=== PATIENT | female | born 1945 | race Caucasian/White ===

== ENCOUNTER 2020-07-08 10:33 | Emergency (ER) | payer MEDICARE, SELFPAY ==
--- NOTE | 2020-07-08 10:41 | ED.GENADULT ---
HPI - General Adult General Chief complaint: Eye Problems Stated complaint: Eye Pain Time Seen by Provider: 07/08/20 10:54 Source: patient Mode of arrival: ambulatory Limitations: no limitations History of Present Illness HPI narrative: 75-year-old female patient presents to the [facility] with complaints of a little bit of redness and itchiness to the right side of her nose that she first noticed last night woke up with increasing swelling and redness as well as increasing itching this morning. Denies any vision changes or swelling of the eye. Denies any discharge coming from the eye. Patient unsure if she was stung or bit by something. Patient denies putting any creams or taking any antihistamines for her symptoms. Related Data Home Medications Medication Instructions Recorded Confirmed aspirin 81 mg tablet,delayed 81 mg PO DAILY 10/03/19 07/08/20 release Allergies Allergy/AdvReac Type Severity Reaction Status Date / Time erythromycin base Allergy Unknown Nausea Verified 07/08/20 10:45 imipramine Allergy Unknown Nausea Verified 07/08/20 10:45 Penicillins Allergy Unknown Unknown Verified 07/08/20 10:45 pneumococcal vaccine Allergy Unknown Nausea and Verified 07/08/20 10:45 [Pneumovax 23] Vomiting Review of Systems Review of Systems: Narrative: CONSTITUTIONAL: Denies fever, chills, or sweats. EYES: Denies visual changes, redness, or discharge. ENT: Denies rhinorrhea, congestion, sore throat, or otalgia. CARDIOVASCULAR: Denies chest pain, palpitations, or edema. RESPIRATORY: Denies cough or dyspnea. GASTROINTESTINAL: Denies abdominal pain, nausea, vomiting, or diarrhea. GENITOURINARY: Denies dysuria or hematuria. SKIN: Denies rash or itching. Positive redness, itchiness to the right lateral side of the nose MUSCULOSKELETAL: Denies back pain, joint pain, or myalgia. NEUROLOGIC: Denies headache, numbness, or weakness. PSYCHIATRIC: Denies anxiety or depression. [facility] Past Medical History Medical History Arthritis right knee Cyclothymia Dupuytren's disease of palm H/O gastroesophageal reflux (GERD) History of hyperlipidemia History of hypertension History of rheumatic fever History of stroke History of valvular heart disease Multinodular goiter Peroneal nerve palsy Type 2 diabetes mellitus Vertigo Surgical History Surgical History History of bladder surgery History of hysterectomy Family History Family History Father Family history of lung cancer Other Family history of cardiovascular disease Hypertension Social History Social History Smoking status: Never smoker Alcohol intake: never Comments At the time of my signature I agree with nursing past medical history, surgical, social, and family history. There is no relevant family history pertinent to the presenting complaint. Exam Narrative: Exam Narrative: GENERAL: Well-appearing, well-nourished, and in no acute distress. HEAD: Normocephalic, atraumatic. EYES: PERRLA and EOMI. ENT: Nares clear, no rhinorrhea or epistaxis. Mucous membranes moist. NECK: Supple. No lymphadenopathy CHEST: Clear to auscultation. No respiratory distress. HEART: Regular rate and rhythm. No murmur heard. Normal peripheral pulses. ABDOMEN: Soft, nontender, nondistended, normal active bowel sounds. EXTREMITIES: Normal range of motion. No edema. SKIN: Warm, dry, no rash. Patient has a little reddened area with a little bit of hardness, slight tenderness, no warmth and a little bit of swelling to the lateral side of the right nose. There does to be seem to be a little sting liliana noted to the center of the area. There is no significant swelling under the eye or above the eye. There is no significant swelling to the cheek or face. No open wounds o
[2020-07-08 10:49] VITALS: BP 153/86; PULSE 64; RESP 18; TEMP 36.6; O2SAT 98
== END 2020-07-08 11:10 | disposition home or self-care (01) ==
PROVIDERS: Emergency Provider Nurse Practitioner Family; PCP Family Medicine
DX: S00.36XA Insect bite (nonvenomous) of nose, initial encounter (principal); W57.XXXA Bitten or stung by nonvenomous insect and other nonvenomous arthropods, initial encounter; L24.9 Irritant contact dermatitis, unspecified cause; M17.11 Unilateral primary osteoarthritis, right knee; F34.0 Cyclothymic disorder; M72.0 Palmar fascial fibromatosis [Dupuytren]; E78.5 Hyperlipidemia, unspecified; I10 Essential (primary) hypertension; Z86.73 Personal history of transient ischemic attack (TIA), and cerebral infarction without residual deficits; E11.9 Type 2 diabetes mellitus without complications; E04.2 Nontoxic multinodular goiter
CPT/HCPCS: 99213; G0463

== ENCOUNTER 2020-09-27 01:42 | Outpatient (CLI) | payer MEDICARE, SELFPAY ==
[2020-09-27 22:26] LABS: SARS-CoV-2 RNA PCR Negative
== END 2020-09-27 01:43 | disposition home or self-care (01) ==
LOC: ANHCOVIDDT 01:42
PROVIDERS: PCP Family Medicine; Visit Provider Internal Medicine Gastroenterology
DX: Z01.812 Encounter for preprocedural laboratory examination (principal); Z20.828 Contact with and (suspected) exposure to other viral communicable diseases
CPT/HCPCS: 87635; C9803; U0003

== ENCOUNTER 2020-10-01 00:45 | Day surgery (SDC) | payer MEDICARE, SELFPAY ==
[2020-09-24 14:54] VITALS: BMI 32.3
[2020-10-01 08:29] VITALS: BP 162/96; PULSE 88; RESP 17; TEMP 36.6; O2SAT 96; BMI 33.0
[2020-10-01] MEDS: LACTATED RINGERS 1,000 ML 150 ML IV CONT (08:39)
[2020-10-01 08:45] LABS: Glucose Point of Care 101 (65-105)
--- NOTE | 2020-10-01 08:52 | WPDGICN ---
Assessment and Plan Assessment and plan (1) Positive colorectal cancer screening using Cologuard test: Code(s): R19.5 - Other fecal abnormalities Status: Acute Assessment and Plan: Patient had positive screening: coloGuard test for this reason colonoscopy will be performed. (2) Family history of colonic polyps: Code(s): Z83.71 - Family history of colonic polyps Status: Acute Assessment and Plan: Patient's mother had colon polyps. Suggest consider follow-up colonoscopy at 5 year intervals. GI Consult Note Consult date/time: 10/01/20 08:52 HPI: Mari Leone is a 75 year old female Seen in evaluation at the request of Dr. Da Kolb. Patient recently found to have positive screening colo-Guard test in is referred for endoscopy. Patient denies any blood in her stools. Her current weight appetite bowel movements are normal. Her family history is significant that her mother had colon polyps. Review of Systems Review of Systems: All systems reviewed & are unremarkable except as noted in HPI and below PMFSH Past Medical History Medical History (Updated 10/01/20 @ 08:54 by Dhiraj Shukla MD) Arthritis right knee Cyclothymia Dupuytren's disease of palm H/O gastroesophageal reflux (GERD) History of blood transfusion (~1996) History of chicken pox History of hyperlipidemia History of hypertension History of measles History of mumps History of rheumatic fever History of rubella History of stroke History of valvular heart disease Multinodular goiter Peroneal nerve palsy Type 2 diabetes mellitus Vertigo Surgical History Surgical History History of bladder surgery (~1951) History of hysterectomy (~1996) Family History Family History Father Lung cancer Mother Congestive heart failure Daughter Age: 48 No problems noted. Sibling No chronic problems Grandparent , in childbirth No chronic problems Grandparent Myocardial infarction Grandparent No chronic problems Grandparent , at 96 No chronic problems Other Family history of cardiovascular disease Hypertension Social History Social History Alcohol intake: never Substance use type: does not use Living arrangements: with family Gender identity (if verbalized by the patient): Female Sexual Orientation (if Verbalized by the Patient): Straight or Heterosexual Spiritual care concerns: No Meds Home Medications and Allergies Home Medications Medication Instructions Recorded Confirmed Type aspirin 81 mg tablet,delayed 81 mg PO DAILY 10/03/19 10/01/20 History release atorvastatin 10 mg tablet 10 mg PO DAILY #90 tablet 01/10/20 10/01/20 Rx metoprolol tartrate 50 mg tablet 50 mg PO Q12H #180 tablet 03/03/20 10/01/20 Rx lisinopril 2.5 mg tablet 2.5 mg PO DAILY #90 tablet 04/15/20 10/01/20 Rx omeprazole 20 mg capsule,delayed 20 mg PO DAILY #90 cap 04/15/20 10/01/20 Rx release metformin 500 mg tablet,extended 500 mg PO DAILY #90 tablet 06/06/20 10/01/20 Rx release 24 hr mupirocin 2 % topical ointment 1 applic TOPICAL TID #22 gm 08/19/20 10/01/20 Rx Allergies Allergy/AdvReac Type Severity Reaction Status Date / Time erythromycin base Allergy Mild Nausea Verified 10/01/20 08:27 imipramine Allergy Mild Nausea Verified 10/01/20 08:27 Penicillins Allergy Mild Unknown Verified 10/01/20 08:27 pneumococcal vaccine Allergy Mild Nausea and Verified 10/01/20 08:27 [Pneumovax 23] Vomiting Vital Signs Vital Signs - 24 hr 10/01/20 08:29 Temperature 97.8 F Pulse Rate 88 Respiratory Rate 17 Blood Pressure 162/96 H Pulse Oximetry 96 Exam Narrative: Exam Narrative: Physical exam reveals patient to be alert. Vital signs stable. H
--- NOTE | 2020-10-01 09:10 | WPDANESEPPF ---
Anes - Initial Pre Proc Eval Procedure: Operation Date: 10/01/20 09:30 Proposed Procedures p Colonoscopy - Dhiraj Shukla MD Date/Time: 10/01/20 09:10 Surgeon: Dhiraj Shukla MD Pre Op Diagnosis: Positive [place] Patient Data Age: 75 Gender: F Height: 5 ft 5 in Weight: 90 kg Last Vital Signs Temp 36.6 C 10/01/20 08:29 Pulse 88 10/01/20 08:29 Resp 17 10/01/20 08:29 BP 162/96 H 10/01/20 08:29 Pulse Ox 96 10/01/20 08:29 Allergies Allergy/AdvReac Type Severity Reaction Status Date / Time erythromycin base Allergy Mild Nausea Verified 10/01/20 08:27 imipramine Allergy Mild Nausea Verified 10/01/20 08:27 Penicillins Allergy Mild Unknown Verified 10/01/20 08:27 pneumococcal vaccine Allergy Mild Nausea and Verified 10/01/20 08:27 [Pneumovax 23] Vomiting Home Medications Medication Instructions Recorded Confirmed Type aspirin 81 mg tablet,delayed 81 mg PO DAILY 10/03/19 10/01/20 History release atorvastatin 10 mg tablet 10 mg PO DAILY #90 tablet 01/10/20 10/01/20 Rx metoprolol tartrate 50 mg tablet 50 mg PO Q12H #180 tablet 03/03/20 10/01/20 Rx lisinopril 2.5 mg tablet 2.5 mg PO DAILY #90 tablet 04/15/20 10/01/20 Rx omeprazole 20 mg capsule,delayed 20 mg PO DAILY #90 cap 04/15/20 10/01/20 Rx release metformin 500 mg tablet,extended 500 mg PO DAILY #90 tablet 06/06/20 10/01/20 Rx release 24 hr mupirocin 2 % topical ointment 1 applic TOPICAL TID #22 gm 08/19/20 10/01/20 Rx Laboratory Tests 10/01/20 08:41 POC Capillary Glucose 101 mg/dl mg/dl (65-105) Patient hx anesthesia problems: none Family hx anesthesia problems: none PMFSH Past Medical History Medical History Arthritis right knee Cyclothymia Dupuytren's disease of palm H/O gastroesophageal reflux (GERD) History of blood transfusion (~1996) History of chicken pox History of hyperlipidemia History of hypertension History of measles History of mumps History of rheumatic fever History of rubella History of stroke History of valvular heart disease Multinodular goiter Peroneal nerve palsy Type 2 diabetes mellitus Vertigo Surgical History Surgical History History of bladder surgery (~1951) History of hysterectomy (~1996) Family History Family History Father Lung cancer Mother Congestive heart failure Daughter Age: 48 No problems noted. Sibling No chronic problems Grandparent , in childbirth No chronic problems Grandparent Myocardial infarction Grandparent No chronic problems Grandparent , at 96 No chronic problems Other Family history of cardiovascular disease Hypertension Social History Social History Alcohol intake: never Substance use type: does not use Living arrangements: with family Gender identity (if verbalized by the patient): Female Sexual Orientation (if Verbalized by the Patient): Straight or Heterosexual Spiritual care concerns: No Anes - Eval Final PreProcedure Day of Procedure 10/01/20 09:10 Patient weight: obese Heart: regular rate and rhythm Lungs: clear to auscultation Airway: Mallampati scale class II Neurological: other (alert) Last oral intake: >/= 8 hours ASA classification: III Emergent: no Anesthetic plan: proceed Anesthesia type and monitoring: general GIVS and standard monitoring Informed Consent: The patient's anesthetic plan and its attendant risks and benefits were discussed with the patient/family/POA. Questions were solicited and answers provided to the satisfaction of the patient/family/POA.
[2020-10-01 10:07] VITALS: BP 109/67; PULSE 78; RESP 15; O2SAT 93
[2020-10-01 10:17] VITALS: BP 129/73; PULSE 69; RESP 16; O2SAT 94
[2020-10-01 10:27] VITALS: BP 139/78; PULSE 67; RESP 17; O2SAT 96
== END 2020-10-01 10:37 | disposition home or self-care (01) ==
PROVIDERS: PCP Family Medicine; Visit Provider Internal Medicine Gastroenterology
PROC: 0DJD8ZZ Inspection of Lower Intestinal Tract, Via Natural or Artificial Opening Endoscopic (ICD-10-PCS; CPT 45378; principal; 2020-10-01 09:30)
DX: R19.5 Other fecal abnormalities (principal); K64.8 Other hemorrhoids; K57.30 Diverticulosis of large intestine without perforation or abscess without bleeding; Z83.71 Family history of colonic polyps; K21.9 Gastro-esophageal reflux disease without esophagitis; I10 Essential (primary) hypertension; I38 Endocarditis, valve unspecified; E04.2 Nontoxic multinodular goiter; E78.5 Hyperlipidemia, unspecified; E11.9 Type 2 diabetes mellitus without complications; R42 Dizziness and giddiness; M17.11 Unilateral primary osteoarthritis, right knee; M72.0 Palmar fascial fibromatosis [Dupuytren]; G57.30 Lesion of lateral popliteal nerve, unspecified lower limb; F34.0 Cyclothymic disorder; Z86.73 Personal history of transient ischemic attack (TIA), and cerebral infarction without residual deficits
CPT/HCPCS: 45378; J2001; J2704; J7120

== ENCOUNTER 2020-10-28 12:44 | Outpatient (NON) | payer MEDICARE, SELFPAY ==
[2020-10-28 23:32] LABS: SARS-CoV-2 RNA PCR Positive
== END 2020-10-28 12:45 ==
LOC: ANHCOVIDDT 12:46
PROVIDERS: PCP Family Medicine; Visit Provider Physician Assistant
DX: U07.1 COVID-19 (principal)
CPT/HCPCS: 87635; C9803; U0003

== ENCOUNTER 2021-01-30 10:45 | Outpatient (CLI) | payer MEDICARE, SELFPAY | END 2021-01-30 10:46 | disposition home or self-care (01) | LOC: ANHCOVIDVC 10:45 | PROVIDERS: PCP Family Medicine | DX: Z23 Encounter for immunization (principal) | CPT/HCPCS: 0001A; 91300 ==

== ENCOUNTER 2021-02-20 10:47 | Outpatient (CLI) | payer MEDICARE, SELFPAY | END 2021-02-20 10:48 | disposition home or self-care (01) | LOC: ANHCOVIDVC 10:47 | PROVIDERS: PCP Family Medicine | DX: Z23 Encounter for immunization (principal) | CPT/HCPCS: 0002A; 91300 ==

== ENCOUNTER 2021-04-21 09:30 | Outpatient (RCR) | payer MEDICARE, SELFPAY ==
--- NOTE | 2021-02-19 14:45 | PTOPEVAL ---
Thank you for referring Mari Leone to [facility].? The patient is scheduled to be seen for therapy? 1 x/week for 6 weeks. Please review, sign, date and return this plan of care ROBSON. I agree with and certify that the following plan of care is medically necessary. Referring Physician Date Attending Provider: Da Kolb MD Physical therapy evaluation Diagnosis back pain Onset Dec 2020 Additional Evaluation Detail She had COVID 11/09 She has also noted increased right knee pain over the past 6 months. She had a fall 11/14/20 when she missed the last step. She had therapy 1 yrs ago for her hip and leg. She stopped performing her HEP in Dec. Subjective Information She reports she has had back Query Text:As Reported By Patient/ pain on/off for years, but Family this time pain has not improved in the past 4 wks. She reports limitations with walking, lifting, household task, carrying heavier objects, negotiating steps. She is unsure if her problems are related to her back or knees. Denies radiating symptoms into right leg. Pain Assessment Self Report Pain Assessment Lower Back Reported Pain Level 5 Pain Description Aching,Sharp,Shooting,Stabbing Pain Radiation Right Leg Pain Frequency Continuous Lowest Pain Intensity 3 Greatest Pain Intensity 10 Pain Aggravating Factors Bending,Exercise/Activity, Lifting,Stair Climbing,Walking ,Weight Bearing/Standing Pain Behaviors None Pain Score Pain Score 5: Self Report Cervical and Lumbar ROM Lumbar Comments seated trunk flex: reaching ankle with noted tightness trunk rotation: 50% with pain on right side Lower Extremity Range of Motion General Lower Extremity Range of Motion Gross Lower Extremity Range of Motion right knee -5- 105 deg painful Comments Cervical and Lumbar Muscle Testing Lumbar Strength Upper Abdominal Strength 3-Fair- Upper Back Extension 3 Fair Lumbar Functional Strength Comments unable to maintain trunk in midline in seated or standing positi
--- NOTE | 2021-03-10 11:59 | PCPTNOTE ---
Patient called and canceled stating she was sick.
--- NOTE | 2021-03-24 16:21 | PTOPEVAL ---
Thank you for referring Mari Leone to [facility].? The patient is scheduled to be seen for therapy? 1 x/week for 4 weeks. Please review, sign, date and return this plan of care ROBSON. I agree with and certify that the following plan of care is medically necessary. Referring Physician Date Attending Provider: Da Kolb MD Physical therapy progress note Diagnosis back pain Onset Dec 2020 Additional Evaluation Detail She had COVID 11/09 She has also noted increased right knee pain over the past 6 months. She had a fall 11/14/20 when she missed the last step. She had therapy 1 yrs ago for her hip and leg. She stopped performing her HEP in Dec. Subjective Information She does feel like her back is Query Text:As Reported By Patient/ better, but not 100%. She Family continues to ups/downs with the exercises and tolerance with daily activities. She is performing HEP 5-7x/wk. She is able to get in/out of bed easier without increased pain or limitations. Her pain varies daily, but unsure of anything that really sets the pain off. She c/o right inner thigh muscle cramping. 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 She is able to carry light to medium heavy objects without limitations. She will have occasional limitation with negotiating steps. Pain Assessment Timing of Pain Assessment Timing of Pain Assessment Re-assessment Pain Scale Pain Scale Used Numeric (1 - 10) Self Report Pain Assessment Lower Back Reported Pain Level 0 Pain Description Sharp Pain Frequency Continuous Lowest Pain Intensity 0 Greatest Pain Intensity 7 Pain Aggravating Factors Bending,Lifting,Prolonged Position Pain Behaviors None Pain Score Pain Score 0: Self Report Cervical and Lumbar ROM Lumbar ROM Lumbar Flexion Active Ankle Query Text:Hands to:
--- NOTE | 2021-04-21 11:59 | PTOPEVAL ---
Thank you for referring Mari Leone to [facility].? Pt has reached maximal potential with skilled therapy services at this time. See summary below for detailed information on progress. Discharge skilled therapy services at this time. Please review, sign, date and return this Discharge summary ROBSON. I agree with and certify that the following plan of care is medically necessary. Referring Physician Date Attending Provider: Da Kolb MD Physical Therapy Discharge Note Diagnosis back pain Onset Dec 2020 Additional Evaluation Detail She had COVID 11/09 She has also noted increased right knee pain over the past 6 months. She had a fall 11/14/20 when she missed the last step. She had therapy 1 yrs ago for her hip and leg. She stopped performing her HEP in Dec. Subjective Information She is able to perform Query Text:As Reported By Patient/ activities better with Family improved pain. She knows her back will never feel perfect but is better. She has learned how to move better since she started therapy. She is able to get in/out of bed easier without increased pain or limitations. She verbalizes the importance of continuing with her HEP to maintain her level of function . Pain Assessment Lower Back Reported Pain Level 0 Pain Description Sharp Pain Frequency Chronic Lowest Pain Intensity 0 Greatest Pain Intensity 5 Pain Aggravating Factors Exercise/Activity Pain Behaviors None Lower Extremity Muscle Strength Testing Hip Strength Left Hip Flexion Strength 4+ Good + Hip Extension Strength 3 Fair Hip Abduction Strength 3 Fair Hip Adduction Strength 3- Fair - Right Hip Flexion Strength 4+ Good + Hip Extension Strength 3 Fair Hip Abduction Strength 3 Fair Hip Adduction Strength 3- Fair - Knee Strength Right Knee Flexion Strength 4+ Good + Knee Extension Strength 5 Normal Left Knee Flexion Strength 4+ Good + Knee Extension Strength 5 Normal Gait Assessment Gait Pattern Antalgic Gait,Trendelenburg Gait Gait Pattern Observed Decreased Stride Le
== END 2021-04-22 08:28 | disposition home or self-care (01) ==
LOC: ANHPT 09:30
PROVIDERS: PCP Family Medicine; Visit Provider Family Medicine
DX: M54.9 Dorsalgia, unspecified (principal)
CPT/HCPCS: 97110; 97162; 97530

== ENCOUNTER 2021-07-16 12:14 | Outpatient (CLI) | payer MEDICARE, SELFPAY ==
--- NOTE | ~2021-07-16 | XR_ITS ---
XR lumbar spine 2-3V DATE: 07/16/2021 12:59 INDICATION: Low back pain since December, radiating to right leg. No injury. TECHNIQUE: AP, lateral, coned lateral lumbosacral views COMPARISON: 10/06/2013 lumbar spine FINDINGS: Diffuse osteopenia. Prominent degenerative spurring and included T10-11 and T11-12. There is severe degenerative disc disease and associated minimal retrolisthesis at L2-3. Moderate degenerative disc disease at L3-4. Severe degenerative disc disease at L4-5. There is moderate degenerative change at the apophyseal joints in the lower lumbar and lumbosacral ar ea with associated chronic grade 1 anterolisthesis at L4-5. The sacroiliac joints are intact. IMPRESSION: Multilevel degenerative disc disease, especially at L2-3 and L4-5 Grade 1 anterolisthesis at L4-5 due to degenerative change at the apophyseal joints Diffuse osteopenia Reviewed, dictated and finalized at location A. IMPRESSION: Multilevel degenerative disc disease, especially at L2-3 and L4-5 Grade 1 anterolisthesis at L4-5 due to degenerative change at the apophyseal jevon ints Diffuse osteopenia
== END 2021-07-16 12:15 | disposition home or self-care (01) ==
LOC: ANHIMG 12:18
PROVIDERS: PCP Family Medicine; Visit Provider Physician Assistant Medical
DX: M47.816 Spondylosis without myelopathy or radiculopathy, lumbar region (principal)
CPT/HCPCS: 72100

== ENCOUNTER 2021-08-14 14:57 | Outpatient (CLI) | payer MEDICARE, SELFPAY ==
--- NOTE | ~2021-08-14 | DEXA_ITS ---
Bone Density Report Name: Mari Leone Age: 76 Sex: Female Ethnicity: White Date of : 1945 Indication: postmenopausal; height loss; hysterectomy; Referring Provider: Darwin Benson Study: Bone densitometry was performed. Exam Date: August 14, 2021 Accession number: [id number] Bone Density: Region BMD T-score Z-score Classification AP Spine (L1, L2) 1.236 2.3 4.6 Normal Femoral Neck (Left) 0.664 -1.7 0.4 Osteopenia Total Hip (Left) 0.960 0.1 1.9 Normal Total Hip Bilateral Avg 0.896 -0.4 1.4 Normal Femoral Neck (Right) 0.694 -1.4 0.6 Osteopenia Total Hip (Right) 0.831 -0.9 0.8 Normal World Health Organization criteria for BMD impression classify patients as: Normal (T-score at or above -1.0), Osteopenia (T-score between -1.0 and -2.5), or Osteoporosis (T-score at or below -2.5). 10-year Fracture Risk(1): Major Osteoporotic Fracture 11% Hip Fracture 2.1% Reported Risk Factors: [place] (), Neck BMD=0.664, BMI=33.3 (1) FRAX(R) Version 3.08. Fracture probability calculated for an untreated patient. Fracture probability may be lower if the patient has received treatment. Previous Exams: Region Exam Age BMD T-score BMD Change BMD Change Date g/cm2 vs Baseline vs Previous AP Spine(L1, L2) 08/14/2021 76 1.236 2.3 0.149(13.7%)# 0.092(8.1%)* 09/03/2017 72 1.143 1.5 0.056(5.2%)# -0.012(-1.0%)# 05/18/2010 65 1.156 1.6 0.068(6.3%)* 0.068(6.3%)* 06/26/2005 60 1.087 1.0 Total Hip(Left) 08/14/2021 76 0.960 0.1 -0.020(-2.1%)# -0.038(-3.8%)* 09/03/2017 72 0.998 0.5 0.018(1.8%)# 0.006(0.6%)# 05/18/2010 65 0.992 0.4 0.011(1.2%) 0.011(1.2%) 06/26/2005 60 0.980 0.3 Total Hip(Right) 08/14/2021 76 0.831 -0.9 -0.161(-16.2%) -0.074(-8.2%)* 09/03/2017 72 0.905 -0.3 -0.086(-8.7%)# -0.067(-6.9%)# 05/18/2010 65 0.972 0.2 -0.019(-1.9%) -0.019(-1.9%) 06/26/2005 60 0.991 0.4 *Denotes significance at 95% confidence level, LSC for AP Spine = 0.022 g/cm2, LSC for Total Hip = 0.027 g/cm2 Clinical Information Provided by Patient: Has the following medical conditions: Hysterectomy Patient maximum height was 66 Menopause Age: 41 No regular weight bearing exercise Drinks caffeinated beverages Onset of menses at age 12 Number of children 1 Impression: The patient has low bone mass, based on the Left Femoral Neck T-score. The patient has an estima
--- NOTE | ~2021-08-14 | MM_ITS ---
EXAMINATION: MM screening apolinar BI w jameel HISTORY: Screening mammogram TECHNIQUE: Craniocaudal and mediolateral oblique 3-D tomosynthesis images were obtained and synthetic 2-D images were generated. CAD analysis was submitted and interpreted. COMPARISON: 09/08/2017 diagnostic left mammogram and complete left breast ultrasound 09/03/2017, 04/17/2016 bilateral digital screening mammogram examinations BREAST PARENCHYMAL COMPOSITION: There are scattered areas of fibroglandular density. FINDINGS: Left breast: There are multiple scattered left breast asymmetries. Diagnostic left mammogram and left breast ultrasound examination are recommended. Right breast: There is no evidence of suspicious mass, calcification, or architectural distortion to suggest malignancy in the right breast. There has been no suspicious interval change on the right. IMPRESSION: 1. Left breast mammographic asymmetries 2. Diagnostic left mammogram and left breast ultrasound examination are recommended BI-RADS Category 0: Incomplete: Needs additional imaging evaluation. Reviewed, dictated and finalized at location A. IMPRESSION: 1. Left breast mammographic asymmetries 2. Diagnostic left mammogram and left breast ultrasound examination are recomme nded BI-RADS Category 0: Incomplete: Needs additional imaging evaluation.
== END 2021-08-14 14:58 | disposition home or self-care (01) ==
LOC: ANHIMG 14:58
PROVIDERS: PCP Family Medicine; Visit Provider Physician Assistant Medical
DX: Z12.31 Encounter for screening mammogram for malignant neoplasm of breast (principal); Z78.0 Asymptomatic menopausal state; M85.89 Other specified disorders of bone density and structure, multiple sites; R92.8 Other abnormal and inconclusive findings on diagnostic imaging of breast
CPT/HCPCS: 77063; 77067; 77080

== ENCOUNTER 2021-09-30 11:24 | Outpatient (CLI) | payer MEDICARE, SELFPAY ==
--- NOTE | ~2021-09-30 | MMUS_ITS ---
EXAMINATION: MM diagnostic apolinar LT w jameel, US breast LT complete HISTORY: Mammographic asymmetries of left breast on 08/14/2021 screening mammogram TECHNIQUE: Additional 3-D tomosynthesis images of the left breast were performed and synthetic 2-D im ages were generated. CAD analysis was submitted and interpreted. High resolution complete left breast ultrasound including all 4 quadrants and subareolar area was performed. COMPARISON: 08/14/2021 bile screening mammogram 09/08/2017 diagnostic left mammogram and complete left breast ultrasound 09/03/2017, 04/17/2016 bilateral screening mammogram examinations FINDINGS: MAMMOGRAPHIC FINDINGS: There is stable nodular appearing fibroglandular stroma since 04/09/2016. No suspicious mass, architec tural distortion, malignant calcification, skin thickening or retraction is evident. There are scatte red benign calcifications. ULTRASOUND: 1:00 near nipple: 2.5 x 4.7 mm sonolucency consistent with cyst 2:00 6 cm from nipple: Parallel circumscribed hypoechoic 3.2 x 5.5 x 4.3 mm lesion without shadowing. 2:00 4 cm from nipple: Approximately 4 x 6 mm sonolucency consistent with cyst 6:00 near nipple: 4.3 x 3.4 x 5.2 mm circumscribed hypoechoic lesion with central hyperechogenicity/f atty tissue. This is likely a lymph node. IMPRESSION: 1. Probably benign findings 2. 6 month diagnostic left mammogram and left breast ultrasound follow-up are recommended BI-RADS category 3, probably benign findings. Reviewed, dictated and finalized at location A. 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 Probably benign findings 2. 6 month diagnostic left mammogram and left breast ultrasound follow-up are r ecommended BI-RADS category 3, probably benign findings.
== END 2021-09-30 11:25 | disposition home or self-care (01) ==
LOC: ANHIMG 11:27
PROVIDERS: PCP Family Medicine; Visit Provider Family Medicine
DX: R92.8 Other abnormal and inconclusive findings on diagnostic imaging of breast (principal)
CPT/HCPCS: 76641; 77061; 77065; G0279

== ENCOUNTER 2022-04-21 10:52 | Observation (INO) | payer MEDICARE, SELFPAY ==
--- NOTE | ~2022-04-21 | MR_ITS ---
EXAMINATION: MR brain/brain stem wo/w con DATE: 04/22/2022 08:10 INDICATION: Vertigo. TECHNIQUE: Magnetic resonance imaging (MRI) of the brain and brainstem was performed without and with 16 mL MultiHance intravenous contrast. COMPARISON: Brain MRI 10/06/2013, head CT 04/21/2022 FINDINGS: There are scattered areas of nonspecific increased T2-weighted signal intensity in the cere bral white matter, which is within normal limits for the patient's age. There is no intracranial hemo rrhage, acute infarction, or abnormal intracranial mass lesion. The ventricles are normal in size. Th ere is a left mastoid effusion. There is a mucous retention cyst in right maxillary sinus. There are no pathologically enlarged lymph nodes. IMPRESSION: 1. Normal aging brain. 2. Left mastoid effusion. Reviewed, dictated and finalized at location A.
--- NOTE | ~2022-04-21 | XR_ITS ---
EXAMINATION: XR chest 1V portable DATE: 04/21/2022 11:37 INDICATION: Transient alteration of awareness. TECHNIQUE: A single frontal view of the chest was obtained. COMPARISON: None. FINDINGS: There is mild atelectasis in lingula. No pleural effusion or pneumothorax. Cardiomegaly is noted. IMPRESSION: 1. Mild atelectasis in lingula. 2. Cardiomegaly. Reviewed, dictated and finalized at location A.
--- NOTE | ~2022-04-21 | CT_ITS ---
EXAMINATION: CT brain wo con DATE: 04/21/2022 11:58 INDICATION: Dizziness TECHNIQUE: Computed tomography (CT) of the head was performed without intravenous contrast. The dose- length product was 756.67 mGy-cm. Automated exposure control and iterative reconstruction technique w ere employed. COMPARISON: CT dated 08/27/2019 FINDINGS: No acute intracranial hemorrhage, infarction, mass or mass effect. There are scattered mild periventricular and subcortical white matter changes, most likely related to small vessel ischemic d isease (microangiopathy). Chronic bilateral lacunar infarctions. No ventriculomegaly or midline shift . There is intracranial atherosclerosis. There is a mucous retention cyst of the right maxillary sinu s. There is a left mastoid effusion. IMPRESSION: 1. No acute intracranial abnormality. 2: Small chronic bilateral lacunar infarctions. 3: Chronic age-related findings. Reviewed, dictated and finalized at location A.
[2022-04-21 10:53] VITALS: BP 150/79; PULSE 65; RESP 17; TEMP 36.2; O2SAT 99
--- NOTE | 2022-04-21 10:57 | ECG_ITS ---
Measurements Intervals [place] Rate: 66 P: 36 ME: 170 QRS: 1 QRSD: 84 T: 8 QT: 389 QTc: 409 Interpretive Statements SINUS RHYTHM NONSPECIFIC T-WAVE ABNORMALITY INFERIOR LEADS BORDERLINE ECG COMPARED TO PRIOR ECG NO SIGNIFICANT CHANGE Electronically Signed On 04-21-2022 11:44:22 CDT by Yomi Bazan M.D.
--- NOTE | 2022-04-21 11:02 | ED.DIZZY ---
HPI - Dizziness General Chief Complaint: Dizziness Stated Complaint: Dizziness History of Present Illness HPI Narrative: Patient presents emergency department from home via EMS for dizziness. Patient states that dizziness began upon awaking this morning. States that it feels like the room is spinning. States that dizziness is improved when she closes her eyes and is worse with movement she denies any vision changes, chest pain, shortness of breath abdominal pain nausea vomiting numbness or tingling in extremities or any other symptoms. Patient states she has a history of vertigo and has meclizine at home she took a meclizine but did vomit shortly afterwards she was given Zofran by EMS Related Data Home Medications Medication Instructions Recorded Confirmed aspirin 81 mg tablet,delayed 81 mg PO DAILY 10/03/19 06/19/21 release (Adult Aspirin Regimen) Allergies Allergy/AdvReac Type Severity Reaction Status Date / Time erythromycin base Allergy Mild Nausea Verified 06/19/21 13:40 imipramine Allergy Mild Nausea Verified 06/19/21 13:40 Penicillins Allergy Mild Unknown Verified 06/19/21 13:40 pneumococcal vaccine Allergy Mild Nausea and Verified 06/19/21 13:40 [Pneumovax 23] Vomiting Review of Systems Review of Systems: Gen.: Denies fevers or chills Eyes: Denies eye pain or visual change ENT: Denies congestion Respiratory: Denies shortness of breath or cough CV: Denies chest pain or palpitations GI: Denies abdominal or diarrhea reports nausea vomiting Musculoskeletal: Denies back pain or muscle pain Neuro: See HPI Skin: Denies rash Except as documented, all other systems reviewed and negative [facility] Past Medical History Medical History Arthritis right knee Class 1 obesity Cyclothymia Dupuytren's disease of palm H/O gastroesophageal reflux (GERD) History of blood transfusion (~1996) History of chicken pox History of hyperlipidemia History of hypertension History of measles History of mumps History of rheumatic fever History of rubella History of stroke History of valvular heart disease Multinodular goiter Peroneal nerve palsy Type 2 diabetes mellitus Vertigo Surgical History Surgical History History of bladder surgery (~1951) History of hysterectomy (~1996) Family History Family History Father Lung cancer Mother Congestive heart failure Daughter Age: 50 No problems noted. Sibling No chronic problems Grandparent , in childbirth No chronic problems Grandparent Myocardial infarction Grandparent No chronic problems Grandparent , at 96 No chronic problems Other Family history of cardiovascular disease Hypertension Social History Social History Alcohol intake: never Substance use type: does not use Gender identity (if verbalized by the patient): Female Sexual Orientation (if Verbalized by the Patient): Straight or Heterosexual Spiritual care concerns: No Exam Narrative: APPEARANCE: No acute distress, nontoxic, resting in bed HEENT: Normocephalic, atraumatic, OMM, TMs clear bilaterally EYES: PERRL, EOMI RESPIRATORY: No respiratory distress, clear to auscultation bilaterally with no rhonchi wheezing or rales CARDIOVASCULAR: RRR s murmur ABDOMINAL: Soft, nontender, nondistended MUSCULOSKELETAL: Moves all extremities. No clubbing, cyanosis or edema. NEURO: A and O ?3, following commands, speech normal, no facial droop,muscle strength 5 out of 5 bilateral upper and lower extremities SKIN:: Warm, dry. Normal Color PSYCHIATRIC: Normal affect/mood Course Course Emergency Course: Patient had taken meclizine at home continues to have dizziness will give Valium Patient continues santana
[2022-04-21] MEDS: SODIUM CHLORIDE 0.9% IV 1,000 ML 999 ML IV CONT (11:15)
[2022-04-21 11:19] LABS: Basophils Absolute Auto 0.1 K/mm3 (0.0-0.1); Basophils Percent Auto 0.4 % (0.2-1.2); Hematocrit 42.7 % (37.0-47.0); Hemoglobin 13.4 g/dL (12.0-15.0); Immature Granulocyte Absolute 0.07 K/mm3 (0.00-0.031); Immature Granulocyte Percent A 0.5 % (0-0.5); Lymphocytes Absolute Auto 1.79 K/mm3 (0.9-3.2); Lymphocytes Percent Auto 12.8 % (18.3-44.2); Mean Corpuscular HGB Conc 31.4 g/dl (32-36); Mean Corpuscular Hemoglobin 28.7 pg (26-34); Mean Corpuscular Volume 91.4 fl (80-100); Mean Platelet Volume 11.6 fl (7.4-10.4); Monocytes Absolute Auto 0.6 K/mm3 (0.1-0.6); Monocytes Percent Auto 4.3 % (2.6-8.5); Neutrophils Absolute Auto 11.5 K/mm3 (1.3-6.7); Platelet Count Result 227 k/mm3 (150-375); Red Blood Count 4.67 M/mm3 (4.2-5.4); Red Cell Distribution Width 12.9 % (11.5-14.5)
[2022-04-21 11:29] LABS: Alanine Aminotransferase 19 U/L (6-35); Albumin Level 4.2 g/dL (3.5-5.1); Alkaline Phosphatase 133 U/L (38-126); Anion Gap 15 mmol/L (8-16); Aspartate Amino Transferase 24 U/L (14-36); Bilirubin,Total 0.5 mg/dL (0.2-1.3); Blood Urea Nitrogen 23 mg/dL (7-17); Calcium 9.6 mg/dL (8.4-10.2); Carbon Dioxide 21 mmol/L (22-30); Chloride 106 mmol/L (98-107); Estimated CRCL calculation 72 ml/min; Estimated Glomerular Filt Rate > 60; Glucose 134 mg/dL (65-110); Potassium 4.3 mmol/L (3.4-5.0); Sodium 142 mmol/L (137-145)
[2022-04-21 11:36] LABS: Prothrombin Time 12.6 Seconds (11.1-14.7)
[2022-04-21 11:37] LABS: Partial Thromboplastin Time 23.1 SECONDS (22.3-36.8)
--- NOTE | 2022-04-21 11:50 | PC.NURSE ---
patient refusing any interventions until i get liquid in my iv . satated that this rn was pissed off' while this rn ws attempting to explain that nursing staff works under md orders and md orders testing and medications but patient continued to accuse this rn of not wanting to care for her. Dr Craven to bedside at patients request.
--- NOTE | 2022-04-21 11:54 | PC.NURSE ---
patient calling out requests for comfort needs to this rn while providing care to patient in next bed. patient overheard patient tell family member that this rn is terrible because she feels her needs are not being addressed in a timely manner
[2022-04-21 12:48] LABS: Add Urine Microscopic? YES; Appearance Urine Clear (Clear); Bilirubin Urine Negative (Negative); Blood Urine Negative (Negative); Color Urine Yellow (Yellow); Glucose Urine UA Negative (Negative); Ketones Urine 1+ mg/dL (Negative); Leukocyte Esterase Ur Negative LEU/UL (Negative); Nitrate Urine Negative (Negative); Protein Urine Negative (Negative); Specific Grav Ur 1.025 (1.001-1.035); Urobilinogen Urine 0.2 mg/dL (<2.0); pH Urine 5.5 (5.0-9.0)
[2022-04-21 12:54] LABS: Bacteria Urine Trace /hpf; Mucus Urine Few /lpf; RBC Urine 0-2 /hpf (0-2); Squamous Epithelial Cell Urine Rare /hpf (Few)
[2022-04-21 12:59] VITALS: BP 154/69; PULSE 78; RESP 18; O2SAT 99
--- NOTE | 2022-04-21 13:07 | PC.NURSE ---
patient refused orthostatic vs stating she is too dizzy to move
[2022-04-21] MEDS: diazePAM (*CRX) 2 MG TABLET PO (13:14)
--- NOTE | 2022-04-21 17:30 | ADMGEN ---
This patient, Mari Leone, was admitted to Medical Room 247-. Patient/family oriented to hospital policies and general routines including ID bracelet, bed and alarms, visiting hours, pain management, procedures, bathroom and other care routines, personal items, smoking policy, room service/diet, and visiting hours. Information on how to activate the Rapid Response Team has been discussed. Patient/Family are encouraged to report perceived risks to care and to ask questions if they do not understand what they are told or what they should do.
[2022-04-21 18:10] VITALS: BP 136/53; PULSE 78; RESP 16; TEMP 36.6; O2SAT 99
[2022-04-21] MEDS: SODIUM CHLORIDE 0.9% IV 1,000 ML 80 ML IV CONT (19:17)
--- NOTE | 2022-04-21 19:50 | PM.IMHP ---
H&P: HPI History of Present Illness Date/Time: 04/21/22 19:51 Chief Complaint: Vertigo Narrative: this is a 77-year-old female with past medical history significant for hypertension, GERD, arthritis. patient presents to the emergency room after having vertigo after having abrupt movement of the head in the morning while in bed patient immediately had room spinning around sensation with nausea later on in the day patient had some vomiting as well accompanied by vertigo which prompted her to come to the emergency room. Patient has been her usual state of health up until this, denies any fevers, rigors, chills, cough, sputum, headaches, vision changes, no focal sensorimotor deficit, no chest pain, no palpitations, no abdominal pain. Preliminary workup has been essentially nonrevealing. Patient is been placed in observation for further evaluation, management and treatment. Review of Systems Review of Systems: Vertigo, nausea, vomiting. Constitutional: Constitutional: Denies chills, Denies fever(s), Denies headache(s), Denies night sweats and Denies poor appetite Eyes: Eyes: Denies change in vision ENT: Denies dysphagia, Reports vertigo, Denies dry mouth, Denies ear discharge, Denies nasal congestion, Denies nasal discharge and Denies odynophagia Cardiovascular: Cardiovascular: Denies chest pain, Denies pedal edema, Denies claudication, Denies leg ulcers, Denies leg edema, Denies lightheadedness, Denies radiating jaw, neck or arm pain, Denies palpitations and Denies dyspnea Respiratory: Respiratory: Denies change in phlegm color, Denies cough, Denies excessive phlegm production and Denies dyspnea Gastrointestinal: Gastrointestinal: Denies abdominal pain, Denies dyspepsia, Denies heartburn, Denies diarrhea, Reports nausea and Reports vomiting Genitourinary: Genitourinary: Denies dysuria and Denies flank pain Musculoskeletal: Musculoskeletal: Denies myalgias Integumentary/Breasts: Skin/Breast: Denies rash Neurologic: Reports vertigo, Denies syncope, Denies focal weakness and Denies Sensory deficit (Neuro) Psychiatric: Psychiatric: Reports no additional psychiatric complaints and Reports as per HPI Endocrine: Endocrine: Denies cold intolerance, Denies heat intolerance, Denies polyphagia, Denies polydipsia and Denies palpitations Hematologic/Lymphatic: Hematologic/Lymphatic: Reports no additional hematologic/lymphatic complaints and Reports as per HPI Allergic/Immunologic: Allergic/Immunologic: Reports no additional allergic/immunologic complaints and Reports as per HPI [facility] Past Medical History Medical History (Updated 04/22/22 @ 01:59 by Blair Núñez MD) Arthritis right knee Class 1 obesity Cyclothymia Dupuytren's disease of palm H/O gastroesophageal reflux (GERD) History of blood transfusion (~1996) History of chicken pox History of hyperlipidemia History of hypertension History of measles History of mumps History of rheumatic fever History of rubella History of stroke History of valvular heart disease Multinodular goiter Peroneal nerve palsy Type 2 diabetes mellitus Vertigo Vertigo Surgical History Surgical History History of bladder surgery (~1951) History of hysterectomy (~1996) Family History Family History Father Lung cancer Mother Congestive heart failure Daughter Age: 50 No problems noted. Sibling No chronic problems Grandparent , in childbirth No chronic problems Grandparent Myocardial infarction Grandparent No chronic problems Grandparent , at 96 No chronic problems Other Family history of cardiovascular disease Hypertension Social History Social History Smoking status: Never smoker Alcohol intake: never Substance use:
[2022-04-21 20:00] VITALS: PULSE 91
[2022-04-21 21:20] VITALS: O2SAT 98
[2022-04-21 22:00] VITALS: BP 122/49; PULSE 82; RESP 20; TEMP 36.4; O2SAT 99
[2022-04-22] VITALS: PULSE 79
[2022-04-22 04:00] VITALS: PULSE 80
[2022-04-22 05:55] LABS: Basophils Absolute Auto 0.1 K/mm3 (0.0-0.1); Basophils Percent Auto 0.5 % (0.2-1.2); Eosinophils Absolute Auto 0.1 K/mm3 (0-0.3); Eosinophils Percent Auto 0.8 % (0-4.4); Hematocrit 36.3 % (37.0-47.0); Hemoglobin 11.3 g/dL (12.0-15.0); Immature Granulocyte Absolute 0.04 K/mm3 (0.00-0.031); Immature Granulocyte Percent A 0.4 % (0-0.5); Lymphocytes Absolute Auto 2.82 K/mm3 (0.9-3.2); Lymphocytes Percent Auto 27.5 % (18.3-44.2); Mean Corpuscular HGB Conc 31.1 g/dl (32-36); Mean Corpuscular Hemoglobin 28.5 pg (26-34); Mean Corpuscular Volume 91.7 fl (80-100); Mean Platelet Volume 11.9 fl (7.4-10.4); Monocytes Absolute Auto 0.7 K/mm3 (0.1-0.6); Monocytes Percent Auto 6.9 % (2.6-8.5); Neutrophils Absolute Auto 6.6 K/mm3 (1.3-6.7); Neutrophils Percent Auto 63.9 % (45.5-73.1); Platelet Count Result 188 k/mm3 (150-375); Red Blood Count 3.96 M/mm3 (4.2-5.4); Red Cell Distribution Width 13.1 % (11.5-14.5); White Blood Count 10.3 K/mm3 (4.5-10.0)
[2022-04-22 06:00] VITALS: BP 141/74; PULSE 71; RESP 21; TEMP 36.2; O2SAT 100
[2022-04-22 06:07] LABS: Alanine Aminotransferase 12 U/L (6-35); Albumin Level 3.1 g/dL (3.5-5.1); Alkaline Phosphatase 91 U/L (38-126); Anion Gap 3 mmol/L (8-16); Aspartate Amino Transferase 19 U/L (14-36); Bilirubin,Total 0.5 mg/dL (0.2-1.3); Blood Urea Nitrogen 16 mg/dL (7-17); Calcium 8.5 mg/dL (8.4-10.2); Carbon Dioxide 29 mmol/L (22-30); Chloride 110 mmol/L (98-107); Estimated CRCL calculation 63 ml/min; Estimated Glomerular Filt Rate > 60; Glucose 106 mg/dL (65-110); Potassium 3.9 mmol/L (3.4-5.0); Sodium 142 mmol/L (137-145)
[2022-04-22 08:44] VITALS: PULSE 84
[2022-04-22] MEDS: METOPROLOL TARTRATE 50 MG TAB BY MOUTH (08:44)
[2022-04-22] MEDS: ATORVASTATIN 10 MG TABLET BY MOUTH (08:44)
[2022-04-22] MEDS: PANTOPRAZOLE 40 MG TABLET PO (08:44)
[2022-04-22] MEDS: LORATADINE 10 MG TABLET PO (08:45)
[2022-04-22] MEDS: lisinopriL 2.5 MG TABLET PO (08:45)
[2022-04-22] MEDS: ASPIRIN 81 MG ENTERIC TABLET PO (08:46)
[2022-04-22] MEDS: SODIUM CHLORIDE 0.9% IV 1,000 ML 80 ML IV CONT (08:52)
--- NOTE | 2022-04-22 10:45 | PM.DS ---
DS: Admitting Diagnosis Discharge Date April 22, 2022 Admitting Diagnosis With benign positional vertigo DS: Discharge Diagnosis Discharge Diagnosis (1) Nausea and vomiting: Code(s): R11.2 - Nausea with vomiting, unspecified Status: Acute Assessment and Plan: Secondary to vertigo now resolved (2) Vertigo: Code(s): R42 - Dizziness and giddiness Status: Acute Assessment and Plan: Secondary to be benign positional vertigo. No resolved workup unrevealing DS: Summary Hospital Course Hospital Course: Patient was admitted for vertigo given some meclizine and some diazepam she responded exceptionally well. No nausea vomiting. MRI and workup has been completely negative Time Spent with Patient Time attestation: Total time spent providing and/or coordinating discharge services: Exam Narrative: patient is laying in bed. Const: General: comfortable, no acute distress, well developed, alert, awake and other ( well-appearing) Nutritional Appearance: average body habitus Orientation/consciousness: patient oriented x3 HENMT: Head: normal to inspection, normocephalic and atraumatic Ears: hearing grossly normal bilaterally Face and sinus: normal facial exam Eyes: General: appearance normal, both eyes and all related structures Pupils: Equal, round and reactive pupils present EOM: EOMs intact bilaterally Neck: Neck: full ROM, no lymphadenopathy and no JVD Thyroid: thyroid normal Lymphatic: no lymphadenopathy noted Resp: Effort & Inspection: normal respiratory effort and able to speak in complete sentences Auscultation: clear to auscultation bilaterally Cardio: Jugular venous distension: no JVD Rate: regular rate Rhythm: regular rhythm Heart sounds: S1 normal heart sound present and S2 normal heart sound present : General: Yes deferred Skin: Rashes: no rashes Wounds: no wounds Neuro: General: patient oriented x3 and CN's II-XI intact bilaterally Cranial nerves: Yes CN's II-XII intact bilaterally and Yes Equal, round and reactive pupils present Cognition (Neuro): normal cognition Speech: normal speech Gait exam (Neuro): Normal gait present Motor exam (neuro): 5/5 motor strength present throughout Sensory Exam: No Sensory deficit (Neuro) Extrem: General: normal to inspection, full ROM, no joint enlargement and no pedal edema DS: Data Data Completed and Pending Labs on day of discharge: Labs from last 24 hours 04/22/22 04/22/22 04/21/22 05:07 05:07 12:39 WBC 10.3 H RBC 3.96 L Hgb 11.3 L Hct 36.3 L MCV 91.7 MCH 28.5 MCHC 31.1 L RDW 13.1 Plt Count 188 MPV 11.9 H Immature Gran % (Auto) 0.4 Neut % (Auto) 63.9 Lymph % (Auto) 27.5 [place] % (Auto) 6.9 Eos % (Auto) 0.8 Baso % (Auto) 0.5 Lymph # (Auto) 2.82 [place] # (Auto) 0.7 H Eos # (Auto) 0.1 Baso # (Auto) 0.1 Abs Immat Gran (auto) 0.04 H Absolute Neuts (auto) 6.6 Absolute Nucleated RBC 0.0 Nucleated RBC % 0.0 PT INR APTT Sodium 142 Potassium 3.9 Chloride 110 H Carbon Dioxide 29 Anion Gap 3 L BUN 16 Creatinine 0.70 Estim Creat Clear Calc 63 Estimated GFR > 60 Glucose 106 Calcium 8.5 Total Bilirubin 0.5 AST 19 ALT 12 Alkaline Phosphatase 91 Total Protein 6.0 L Albumin 3.1 L Urine Color Yellow Urine Appearance Clear Urine pH 5.5 Ur Specific [place] 1.025 Urine Protein Negative Urine Glucose (UA) Negative Urine Ketones 1+ H Ur Blood (Man) Negative Urine Nitrate Negative Urine Bilirubin Negative Urine Urobilinogen 0.2 Leukocyte Esterase Rfl Negative Urine RBC 0-2 Urine WBC 4-6 H Ur Squamous Epith Cells Rare Urine Bacteria Trace Urine Mucus Few H 04/21/22 04/21/22 04/21/22 11:12 11:12 11:12 WBC 14.0 H RBC 4.67 Hgb 13.4 Hct 42.7 MCV 91.4 MCH 28.7 MCHC 31.4 L RDW 12.9 Plt Count 227 MPV
[2022-04-22 10:56] VITALS: O2SAT 97
[2022-04-22 11:18] LABS: Glucose Point of Care 117 mg/dl (65-105)
[2022-04-22 12:00] VITALS: PULSE 70
== END 2022-04-22 12:30 | disposition home or self-care (01) ==
LOC: ANHED 15:50 → ANH2MED 04-22 10:45
PROVIDERS: Admitting Provider Internal Medicine; Emergency Provider Emergency Medicine; PCP Physician Assistant; Visit Provider Chiropractor
DX: H81.10 Benign paroxysmal vertigo, unspecified ear (principal); R11.2 Nausea with vomiting, unspecified; I10 Essential (primary) hypertension; E78.5 Hyperlipidemia, unspecified; E11.9 Type 2 diabetes mellitus without complications; E66.9 Obesity, unspecified; Z68.31 Body mass index [BMI] 31.0-31.9, adult; Z86.73 Personal history of transient ischemic attack (TIA), and cerebral infarction without residual deficits
CPT/HCPCS: 36415; 51701; 70450; 70553; 71045; 80053; 81001; 82948; 85025; 85610; 85730; 93005; 96360; 96361; 99285; A9270; A9577; G0378; J1650; J7030

== ENCOUNTER → 2023-03-09 10:30 | Outpatient (CLI) | payer MEDICARE, SELFPAY ==
--- NOTE | ~2023-03-09 | XR_ITS ---
XR sacrum coccyx min 2V DATE: 03/09/2023 11:03 INDICATION: Fall. Low back pain TECHNIQUE: AP, angled AP and lateral views of the sacrum COMPARISON: None FINDINGS: Osteopenia. No sacral or coccygeal fracture or bone destruction is evident. The sacroiliac joints are intact with out erosive change or ankylosis. The pubic symphysis is intact. Prominent lumbar degenerative disc disease. Grade 1 anterolisthesis at L4-5. Mild bilateral hip osteoarthritis. IMPRESSION: No fracture or bone destruction of the sacrum or coccyx Unremarkable sacroiliac joints Reviewed, dictated and finalized at location B.
--- NOTE | ~2023-03-09 | XR_ITS ---
XR lumbar spine 2-3V DATE: 03/09/2023 11:03 INDICATION: Fall. Midline low back pain TECHNIQUE: AP, lateral, coned lateral lumbosacral views COMPARISON: 07/16/2021 lumbar spine FINDINGS: There is osteopenia. Degenerative spurring of the lower thoracic spine, prominent degenerative disc disease particularly a t T11-12. Severe degenerative disc disease at L2-3 and L4-5, probably severe degenerative disc disease at L3-4. Prominent degenerative change at the apophyseal joints with associated grade 1 anterolisthesis at L4- 5. No fracture or bone destruction is evident. Included lower thoracic and lumbar pedicles are intact. T he sacroiliac joints are intact. Surgical clips, pelvic area. IMPRESSION: Severe multilevel degenerative disc disease of the lumbar spine, prominent degenerative c hange of the lower thoracic spine Prominent degenerative changes apophyseal joints with associated grade 1 anterolisthesis at L4-5, sta ble since 07/16/2021 Reviewed, dictated and finalized at location B. IMPRESSION: Severe multilevel degenerative disc disease of the lumbar spine, pr ominent degenerative change of the lower thoracic spine Prominent degenerative changes apophyseal joints with associated grade 1 richard listhesis at L4-5, stable since 07/16/2021
== END ==
PROVIDERS: PCP Physician Assistant; Visit Provider Physician Assistant
DX: M54.50 Low back pain, unspecified (principal); G89.29 Other chronic pain; M51.36 Other intervertebral disc degeneration, lumbar region
CPT/HCPCS: 72100; 72220

== ENCOUNTER 2023-10-16 13:23 | Emergency (ER) | payer MEDICARE, SELFPAY ==
--- NOTE | 2023-10-16 13:34 | ED.EYEPROB ---
HPI - Eye Problem General Chief complaint: Eye Problems Stated complaint: left eye irritated Time Seen by Provider: 10/16/23 13:30 Source: patient Mode of arrival: ambulatory Limitations: no limitations History of Present Illness HPI Narrative: Mari is a 78-year-old female patient presenting to clinic today with complaints of left eye irritation times 1-2 days. She reports she has some crusting to the outside of the left eye that is itching. Eye is watering at times. Denies any pain but reports that her left eye feels a little swollen. Related Data Home Medications Medication Instructions Recorded Confirmed aspirin 81 mg tablet,delayed 81 mg PO DAILY 10/03/19 04/21/22 release (Adult Aspirin Regimen) loratadine 10 mg tablet (Claritin) 10 mg PO DAILY PRN Allergy Symptoms 04/21/22 04/21/22 Allergies Allergy/AdvReac Type Severity Reaction Status Date / Time erythromycin base Allergy Mild Nausea Verified 04/21/22 17:31 imipramine Allergy Mild Nausea Verified 04/21/22 17:31 Penicillins Allergy Mild Unknown Verified 04/21/22 17:31 pneumococcal vaccine Allergy Mild Nausea and Verified 04/21/22 17:31 [Pneumovax 23] Vomiting Review of Systems Review of Systems: Pertinent positives per HPI. Patient denies any fever, chills, rash, headache, visual changes, dizziness, cough, runny nose, sore throat, shortness of breath, chest pain, palpitations, nausea, vomiting, diarrhea, constipation, abdominal pain, or any urinary issues. [facility] Past Medical History Medical History Arthritis right knee Class 1 obesity Cyclothymia Dupuytren's disease of palm H/O gastroesophageal reflux (GERD) History of blood transfusion (~1996) History of chicken pox History of hyperlipidemia History of hypertension History of measles History of mumps History of rheumatic fever History of rubella History of stroke History of valvular heart disease Multinodular goiter Peroneal nerve palsy Type 2 diabetes mellitus Vertigo Vertigo Surgical History Surgical History History of bladder surgery (~1951) History of hysterectomy (~1996) Family History Family History Father Lung cancer Mother Congestive heart failure Daughter Age: 51 No problems noted. Sibling No chronic problems Grandparent , in childbirth No chronic problems Grandparent Myocardial infarction Grandparent No chronic problems Grandparent , at 96 No chronic problems Other Family history of cardiovascular disease Hypertension Social History Social History Smoking status: Never smoker Alcohol intake: never Substance use: never Substance use type: does not use Living arrangements: with family Gender identity (if verbalized by the patient): Female Sexual Orientation (if Verbalized by the Patient): Straight or Heterosexual Spiritual care concerns: No Comments At the time of my signature, I reviewed and agree with the nursing past medical, surgical, social, and family history. There is no relevant family history pertinent to the patient complaint. Exam Narrative: General: Well-developed, well nourished, in no apparent distress Head: Normocephalic, atraumatic Eyes: Pupils equally round and reactive to light bilaterally, EOM intact, sclera and conjunctive clear, crusting to the lateral aspect of the upper and lower eyelid of the left eye, watery discharge noted to the left eye, mild lids swelling to the left eye, right lids normal Ears: TMs intact and clear, ear canals clear, no drainage, grossly hearing normal. Nose: Nares patent, no discharge, no inflammation, no sinus tenderness. Mouth: Oropharynx without lesions or rohit
[2023-10-16 13:43] VITALS: BP 161/80; PULSE 68; RESP 16; TEMP 36.8; O2SAT 98
== END 2023-10-16 14:05 | disposition home or self-care (01) ==
PROVIDERS: Emergency Provider Nurse Practitioner Family; PCP Physician Assistant
DX: H57.89 Other specified disorders of eye and adnexa (principal); M17.11 Unilateral primary osteoarthritis, right knee; K21.9 Gastro-esophageal reflux disease without esophagitis; E78.5 Hyperlipidemia, unspecified; I10 Essential (primary) hypertension; E11.9 Type 2 diabetes mellitus without complications; Z86.73 Personal history of transient ischemic attack (TIA), and cerebral infarction without residual deficits
CPT/HCPCS: 99213; G0463

== ENCOUNTER 2024-05-30 10:06 | Outpatient (CLI) | payer MEDICARE, MEDICAID, SELFPAY ==
--- NOTE | ~2024-05-30 | MM_ITS ---
EXAMINATION: MM screening apolinar BI w jameel HISTORY: Screening TECHNIQUE: Craniocaudal and mediolateral oblique 3-D tomosynthesis images were obtained and synthetic 2-D images were generated. CAD analysis was submitted and interpreted. COMPARISON: No prior mammogram is available for comparison at this institution. BREAST PARENCHYMAL COMPOSITION: Not dense: There are scattered areas of fibroglandular density. FINDINGS: There are developing asymmetries in the lower outer quadrant of the right breast in the low er outer quadrant of the left breast posteriorly. In the left breast there are developing asymmetries , or architectural distortion and masses. IMPRESSION: 1. Developing bilateral breast asymmetries. 2. Additional mammographic views and possible breast ultrasound are recommended. BI-RADS CATEGORY 0 - INCOMPLETE STUDY, NEED ADDITIONAL IMAGING EVALUATION. Reviewed, dictated and finalized at location B. IMPRESSION: 1. Developing bilateral breast asymmetries. 2. Additional mammographic views and possible breast ultrasound are recommended . BI-RADS CATEGORY 0 - INCOMPLETE STUDY, NEED ADDITIONAL IMAGING EVALUATION.
== END 2024-05-30 10:07 | disposition home or self-care (01) ==
LOC: ANHIMG 10:11
PROVIDERS: PCP Physician Assistant; Visit Provider Physician Assistant
DX: Z12.31 Encounter for screening mammogram for malignant neoplasm of breast (principal); R92.8 Other abnormal and inconclusive findings on diagnostic imaging of breast
CPT/HCPCS: 77063; 77067

== ENCOUNTER 2024-06-08 11:05 | Outpatient (CLI) | payer MEDICARE, MEDICAID, SELFPAY ==
--- NOTE | ~2024-06-08 | MM_ITS ---
EXAMINATION: MM diagnostic apolinar BI w jameel HISTORY: Abnormal mammogram. TECHNIQUE: Additional 3-D tomosynthesis images of the breasts were performed and synthetic 2-D images were generated. CAD analysis was submitted and interpreted. COMPARISON: Comparison to multiple prior studies sequentially, with oldest reviewed study dated 04/17. BREAST PARENCHYMAL COMPOSITION: Not dense: There are scattered areas of fibroglandular density. FINDINGS: There are developing asymmetries in the periareolar and lateral aspect of the right breast. There are multiple small masses in the left breast involving multiple quadrants. There is a new area of architectural distortion in the lower outer quadrant of the left breast posteriorly. IMPRESSION: 1. New bilateral breast asymmetries with a new focal area of architectural distortion in the lower ou ter quadrant of the left breast. 2. Complete bilateral breast ultrasound recommended for further assessment. BI-RADS CATEGORY 0 - INCOMPLETE STUDY, NEED ADDITIONAL IMAGING EVALUATION. Reviewed, dictated and finalized at location B. IMPRESSION: 1. New bilateral breast asymmetries with a new focal area of architectural dist ortion in the lower outer quadrant of the left breast. 2. Complete bilateral breast ultrasound recommended for further assessment. BI-RADS CATEGORY 0 - INCOMPLETE STUDY, NEED ADDITIONAL IMAGING EVALUATION.
== END 2024-06-08 11:06 | disposition home or self-care (01) ==
LOC: ANHIMG 11:07
PROVIDERS: PCP Physician Assistant; Visit Provider Physician Assistant
DX: R92.8 Other abnormal and inconclusive findings on diagnostic imaging of breast (principal)
CPT/HCPCS: 77062; 77066; G0279

== ENCOUNTER 2024-06-12 13:39 | Outpatient (CLI) | payer MEDICARE, MEDICAID, SELFPAY ==
--- NOTE | ~2024-06-12 | US_ITS ---
US breast BI complete 06/12/2024 15:22 Indication: Follow-up bilateral breast masses Procedure: High-resolution complete bilateral breast ultrasound including all 4 quadrants in the suba reolar locations Comparison: Ultrasound dated 09/30/2021 and mammogram dated 06/08/2024 Findings: There are multiple bilateral simple and complicated cysts of both breasts. In the left nathan st at 12:00, 3 cm from the nipple there is a 5 mm intramammary lymph node. No definite corresponding abnormality is seen in the area of architectural distortion in the left breast by mammography. Impression: 1: No sonographic correlate to architectural distortion in the lower outer quadrant of the left breas t posteriorly. Recommend further evaluation with stereotactic biopsy. BI-RADS CATEGORY 4-SUSPICIOUS ABNORMALITY Reviewed, dictated and finalized at location B. Impression: 1: No sonographic correlate to architectural distortion in the lower outer quad rant of the left breast posteriorly. Recommend further evaluation with stereota ctic biopsy. BI-RADS CATEGORY 4-SUSPICIOUS ABNORMALITY
== END 2024-06-12 13:40 | disposition home or self-care (01) ==
LOC: ANHIMG 13:41
PROVIDERS: PCP Physician Assistant; Visit Provider Physician Assistant
DX: R92.8 Other abnormal and inconclusive findings on diagnostic imaging of breast (principal)
CPT/HCPCS: 76641

== ENCOUNTER 2025-06-20 09:44 | Outpatient (CLI) | payer MEDICARE, MEDICAID, SELFPAY ==
--- NOTE | ~2025-06-20 | MM_ITS ---
EXAMINATION: MM screening apolinar RT w jameel HISTORY: Screening TECHNIQUE: Craniocaudal and mediolateral oblique 3-D tomosynthesis images were obtained and synthetic 2-D images were generated. CAD analysis was submitted and interpreted. COMPARISON: Comparison to multiple prior studies sequentially, with oldest reviewed study dated 08/21. BREAST PARENCHYMAL COMPOSITION: Not dense: There are scattered areas of fibroglandular density. FINDINGS: There is no evidence of suspicious mass, calcification, or architectural distortion to sugg est malignancy in the right breast. There has been no suspicious interval change. IMPRESSION: 1. No mammographic evidence of malignancy. 2. Recommend routine screening mammography in one year. BI-RADS Category 1: Negative Reviewed, dictated and finalized at location B.
--- OUTSIDE RECORDS SUMMARY | 2025-06-20 09:56 | XMS_ITS | Clinical Summary ---
Author Organization [facility] Address [address] [place] [address] Care Team Providers Care Missile Pad Mechanic Name Role Phone Evelyne Tamayo Primary Care Provider [phone] Allergies Active Allergy Reactions Criticality Noted Date Comments Penicillins Rash Medium 09/28/2017 Medications meclizine (ANTIVERT) 25 mg tablet Take 1 tablet (25 mg total) by mouth 3 (three) times a day as needed Active aspirin 81 mg enteric coated tablet Take 1 tablet (81 mg total) by mouth daily Active triamcinolone (KENALOG) 0.025 % creamIndication s:Allergic contact dermatitis due to plants, except food Apply topically 2 (two) times a day 30 g 1 2 Active Additional Information Patient not taking.Reported on 05/04/2025 atorvastatin (LIPITOR) 20 mg tablet Take 1 tablet (20 mg total) by mouth daily 90 tablet 4 4 Active anastrozole (ARIMIDEX) 1 mg tablet Take 1 tablet (1 mg total) by mouth daily Active metoprolol tartrate (LOPRESSOR) 50 mg immediate release tablet TAKE 1 TABLET BY MOUTH TWICE A DAY 180 tablet 2 5 Active cholecalciferol (VITAMIN D-3) 5,000 unit tabletIndicatio ns:Vitamin D deficiency Take 1 tablet (5,000 Units total) by mouth daily 5 Active magnesium aspart,citrate, oxide (Triple Magnesium Complex) 400 mg magnesium capsule Take by mouth Active metFORMIN XR (GLUCOPHAGE XR) 500 mg 24 hr tablet TAKE 1 TABLET BY MOUTH EVERY DAY WITH BREAKFAST 90 tablet 2 5 Active omeprazole (PriLOSEC) 20 mg capsule TAKE 1 CAPSULE BY MOUTH EVERY DAY 90 capsule 2 5 Active lisinopriL (PRINIVIL,ZESTR IL) 2.5 mg tablet TAKE 1 TABLET BY MOUTH EVERY DAY 90 tablet 2 5 Active Active Problems Problem Noted Date Diagnosed Date Colon cancer screening 03/03/2025 Assessment & Plan (03/03/2025 11:42 PM CDT): Patient is due for colon cancer screening Order placed to Dr. Michael Dick at [facility] Vitamin D deficiency 03/03/2025 Assessment & Plan (03/03/2025 11:42 PM CDT): Supplement Chronic pain of left knee 11/27/2024 Assessment & Plan (11/27/2024 1:58 PM COIN MACHINE SUPERVISOR): Patient has been experiencing left knee symptoms for the last few months. Notices swelling behind the knee and thinks that that has been getting larger. On November 12 had severe knee pain while she was walking in the dining room. [place] like it was not stable and that was going to give out. She never . It did not lock out on her. The pain was very deep in the joint and she iced it elevated it and spontaneously after a week or so it did resolve. She still has swelling behind the back of the knee. Currently she is symptom free. Recommend referral to orthopedics for further evaluation of possible Ross's cyst and possible meniscal involvement versus other etiology. She would like to be seen in [place] Enlarged thyroid 08/05/2024 Assessment & Plan (03/03/2025 11:39 PM CDT): Patient has an enlarged thyroid. Awaiting ultrasound of the thyroid or results to determine next step. Assessment & Plan (08/05/2024 8:44 PM CDT): On exam today I noticed an enlarged thyroid. She states it was biopsied 5 or 6 years ago but has not been worked up since. Recommend thyroid ultrasound which she can do after she completes the breast lumpectomy. Follow up pending those results Invasive ductal carcinoma of breast, stage 1 Assessment & Plan (03/03/2025 11:38 PM CDT): Continue to follow closely with Oncology. She just started anastrozole daily. Assessment & Plan (08/05/2024 8:43 PM CDT): Follows with Dr. Espinosa at [facility]. Planning a wire localized lumpectomy on 08/07 at [facility] for breast biopsy confirmed invasive ductal carcinoma clinical stage IA. Menopause 05/14/2024 Assessment & Plan (05/14/2024 11:01 PM CDT): Patient is due for DEXA Annual physical exam 05/14/2024 Assessment & Plan (03/03/2025 11:41 PM CDT): Encouraged healthy lifestyle, good nutrition and exercise. Encouraged Calcium and Vitamin D and weight bearing exercise for bone health. Reviewed immunizations Reviewed age appropirate screenings. Assessment & Plan (05/14/2024 11:03 PM CDT): Encouraged healthy lifestyle, good nutrition and exercise. Encouraged Calcium and Vitamin D and weight bearing exercise for bone health. Reviewed immunizations Reviewed age appropirate screenings. Obesity (BMI 30-39.9) 03/23/2023 Assessment & Plan (02/25/2025 10:09 AM CDT): Discussed the patient's BMI. The BMI is above average. BMI management plan is completed. BMI Follow-up includes: nutrition counseling, exercise counseling and education provided. Assessment & Plan (11/27/2024 1:27 PM COIN MACHINE SUPERVISOR): Discussed the patient's BMI. The BMI is above average. BMI management plan is completed. BMI Follow-up includes: nutrition counseling, exercise counseling and education provided. Assessment & Plan (08/05/2024 8:43 PM CDT): Discussed the patient's BMI. The BMI is above average. BMI management plan is completed. BMI Follow-up includes: nutrition counseling, exercise counseling and education provided. Assessment & Plan (05/14/2024 10:59 PM CDT): Discussed the patient's BMI. The BMI is above average. BMI management plan is completed. BMI Follow-up includes: nutrition counseling, exercise counseling and education provided. Assessment & Plan (10/18/2023 4:06 PM COIN MACHINE SUPERVISOR): Discussed the patient's BMI. The BMI is above average. BMI management plan is completed. BMI Follow-up includes: nutrition counseling, exercise counseling and education provided. Assessment & Plan (05/07/2023 10:50 AM CDT): Discussed the patient's BMI. The BMI is above average. BMI management plan is completed. BMI Follow-up includes: nutrition counseling, exercise counseling and education provided. Assessment & Plan (03/27/2023 4:54 PM CDT): Discussed the patient's BMI. The BMI is above average. BMI management plan is completed. BMI Follow-up includes: nutrition counseling, exercise counseling and education provided. Assessment & Plan (03/23/2023 11:33 AM CDT): Discussed the patient's BMI. The BMI is above average. BMI management plan is completed. BMI Follow-up includes: nutrition counseling, exercise counseling and education provided. BMI 32.0-32.9,adult 03/23/2023 Assessment & Plan (03/03/2025 11:39 PM CDT): Weight/BMI is in healthy range. Continue healthy lifestyle to maintain. Assessment & Plan (11/27/2024 1:27 PM COIN MACHINE SUPERVISOR): Discussed the patient's BMI. The BMI is above average. BMI management plan is completed. BMI Follow-up includes: nutrition counseling, exercise counseling and education provided. Assessment & Plan (08/05/2024 8:43 PM CDT): Discussed the patient's BMI. The BMI is above average. BMI management plan is completed. BMI Follow-up includes: nutrition counseling, exercise counseling and education provided. Assessment & Plan (03/27/2023 4:54 PM CDT): Discussed the patient's BMI. The BMI is above average. BMI management plan is completed. BMI Follow-up includes: nutrition counseling, exercise counseling and education provided. Assessment & Plan (03/23/2023 11:33 AM CDT): Discussed the patient's BMI. The BMI is above average. BMI management plan is completed. BMI Follow-up includes: nutrition counseling, exercise counseling and education provided. BMI 33.0-33.9,adult 09/23/2022 Assessment & Plan (02/25/2025 10:09 AM CDT): Discussed the patient's BMI. The BMI is above average. BMI management plan is completed. BMI Follow-up includes: nutrition counseling, exercise counseling and education provided. Assessment & Plan (09/23/2022 2:33 PM CDT): Obesity is unchanged. Discussed the patient's BMI. The BMI is above average. BMI management plan is completed. BMI Follow-up includes: nutrition counseling, exercise counseling and education provided. Breast cancer screening by mammogram 09/23/2022 Assessment & Plan (05/14/2024 10:59 PM CDT): Mammogram is scheduled in May Assessment & Plan (05/07/2023 10:50 AM CDT): Mammogram order provided Assessment & Plan (10/16/2022 2:50 PM COIN MACHINE SUPERVISOR): Mammogram order provided Allergic contact dermatitis due to plants, excep t food 06/21/2022 Assessment & Plan (06/21/2022 9:16 AM CDT): We discussed that this is likely due to plant exposure from last weekend. She was advised to start prednisone, and to report to the office of having any difficulty with urinary frequency or increased thirst. We reviewed that her sugar has been typically normal fasting. She was advised to not use the steroid cream above her chin as it could create scarring issues. She was advised to follow-up in the next week if not improving, sooner if worsening. Obstructive sleep apnea 05/18/2022 Assessment & Plan (03/03/2025 11:40 PM CDT): Continue per Dr. Yoder. Continue CPAP. She can tell and is helping a lot Assessment & Plan (08/05/2024 8:43 PM CDT): Patient with sleep apnea. Continue CPAP every night. Assessment & Plan (05/14/2024 10:57 PM CDT): Continue CPAP. Assessment & Plan (10/18/2023 4:06 PM COIN MACHINE SUPERVISOR): Continue per Dr. Yoder. Continue with CPAP. She is noticing significant improvement with her symptoms. Assessment & Plan (09/13/2023 11:38 AM CDT): Patient continue to wear her CPAP in auto titrating range of 5-15 cm water pressure. The patient's DME is [employer]. Assessment & Plan (05/07/2023 10:50 AM CDT): Doing great with the CPAP. She can tell she is feeling better Assessment & Plan (10/16/2022 2:50 PM COIN MACHINE SUPERVISOR): Continue with CPAP. Continue per Dr. Yoder Assessment & Plan (09/14/2022 11:54 AM CDT): Patient continue to wear her CPAP in auto titrating range of 5-15 cm water pressure while sleeping. Her DME is [employer]. I have sent an order over to supply the patient with new CPAP card set at 5-15 cm water pressure. Assessment & Plan (05/18/2022 12:25 PM CDT): The patient continue to wear her CPAP at an auto titrating range of 5-15 cm water pressure while sleeping. Her DME is [employer]. Lumbar back pain 02/15/2022 Assessment & Plan (02/15/2022 8:51 PM CDT): Encouraged NSAIDS (if able to safely tolerate) or Tylenol. Topical preparations like Lidocaine patches, Biofreeze, ICYHOT etc as needed. Heat, stretching Avoid long periods of sitting/laying. Encouraged PT but patient not interested, Followup if has any problems controlling bowels or bladder or if sxs worsen. Hypertension associated with diabetes 01/04/2022 Assessment & Plan (03/03/2025 11:41 PM CDT): Bp is stable/in acceptable range for any co-morbidities. Encouraged to limit sodium intake and exercise for weight control. Continue lisinopril and metoprolol Assessment & Plan (08/05/2024 8:43 PM CDT): Bp is stable/in acceptable range for any co-morbidities. Encouraged to limit sodium intake and exercise for weight control. Continue lisinopril 2.5 Lopressor 50 b.i.d. Assessment & Plan (05/14/2024 10:56 PM CDT): Bp is stable/in acceptable range for any co-morbidities. Encouraged to limit sodium intake and exercise for weight control. Continue lisinopril and metoprolol Assessment & Plan (10/18/2023 4:06 PM COIN MACHINE SUPERVISOR): Bp is stable/in acceptable range for any co-morbidities. Encouraged to limit sodium intake and exercise for weight control. Stressed importance of continued A1c control to minimize the fci effects of diabetes. Bring accuchecks to office when instructed to do so. Check A1c about every 3-6 months. Take medication as prescribed. Get annual eye exam. Encouraged JOSUÉ/Statin if able to tolerate. Encouraged weight control and encouraged diabetic diet and exercise. Continue lisinopril and metoprolol. Continue metformin XR 500 daily as A1c is in a good range. Assessment & Plan (05/07/2023 10:49 AM CDT): Bp is stable/in acceptable range for any co-morbidities. Encouraged to limit sodium intake and exercise for weight control. Continue lisinopril and metoprolol Assessment & Plan (10/16/2022 2:49 PM COIN MACHINE SUPERVISOR): Bp is stable/in acceptable range for any co-morbidities. Encouraged to limit sodium intake and exercise for weight control. Continue lisinopril metoprolol Assessment & Plan (04/26/2022 1:12 PM CDT): Bp is stable/in acceptable range for any co-morbidities. Encouraged to limit sodium intake and exercise for weight control. Continue lisinopril and metoprolol Assessment & Plan (02/15/2022 8:49 PM CDT): Bp is stable/in acceptable range for any co-morbidities. Encouraged to limit sodium intake and exercise for weight control. Continue lisinopril/metoprolol Assessment & Plan (01/24/2022 12:32 PM COIN MACHINE SUPERVISOR): Bp is stable/in acceptable range for any co-morbidities. Encouraged to limit sodium intake and exercise for weight control. Continue lisinopril, metoprolol Stressed importance of continued A1c control to minimize the fci effects of diabetes. Bring accuchecks to office when instructed to do so. Check A1c about every 3-6 months. Take medication as prescribed. Get annual eye exam. Encouraged JOSUÉ/Statin if able to tolerate. Encouraged weight control and encouraged diabetic diet and exercise. Unsure of control. Will check labs. On Metformin XR 500mg daily. Type 2 diabetes mellitus with hyperlipidemia Assessment & Plan (03/03/2025 11:40 PM CDT): Stressed importance of continued A1c control to minimize the watermaster effects of diabetes. Bring accuchecks to office when instructed to do so. Check A1c about every 3-6 months. Take medication as prescribed. Get annual eye exam. Encouraged JOSUÉ/Statin if able to tolerate. Encouraged weight control and encouraged diabetic diet and exercise. Encouraged patient to follow low fat/low chol diet like the Mediterranean diet. Increase good fats in the diet. Increase exercise. Monitor labs as needed. Continue atorvastatin 20 Continue metformin XR 500 Assessment & Plan (08/05/2024 8:43 PM CDT): Encouraged patient to follow low fat/low chol diet like the Mediterranean diet. Increase good fats in the diet. Increase exercise. Monitor labs as needed. Continue atorvastatin Stressed importance of continued A1c control to minimize the watermaster effects of diabetes. Bring accuchecks to office when instructed to do so. Check A1c about every 3-6 months. Take medication as prescribed. Get annual eye exam. Encouraged JOSUÉ/Statin if able to tolerate. Encouraged weight control and encouraged diabetic diet and exercise. Continue metformin XR 500 daily. Last A1c was at 7.2 and this was in April of 2024 Assessment & Plan (05/14/2024 10:55 PM CDT): Stressed importance of continued A1c control to minimize the fci effects of diabetes. Bring accuchecks to office when instructed to do so. Check A1c about every 3-6 months. Take medication as prescribed. Get annual eye exam. Encouraged JOSUÉ/Statin if able to tolerate. Encouraged weight control and encouraged diabetic diet and exercise. Encouraged patient to follow low fat/low chol diet like the Mediterranean diet. Increase good fats in the diet. Increase exercise. Monitor labs as needed. Continue metformin XR 500 daily. Continue atorvastatin 20 Assessment & Plan (10/18/2023 4:06 PM COIN MACHINE SUPERVISOR): Encouraged patient to follow low fat/low chol diet like the Mediterranean diet. Increase good fats in the diet. Increase exercise. Monitor labs as needed. Continue atorvastatin 10 Assessment & Plan (05/07/2023 10:49 AM CDT): Encouraged patient to follow low fat/low chol diet like the Mediterranean diet. Increase good fats in the diet. Increase exercise. Monitor labs as needed. Continue statin Assessment & Plan (10/16/2022 2:49 PM COIN MACHINE SUPERVISOR): Encouraged patient to follow low fat/low chol diet like the Mediterranean diet. Increase good fats in the diet. Increase exercise. Monitor labs as needed. Continue statin Assessment & Plan (04/26/2022 1:12 PM CDT): Encouraged patient to follow low fat/low chol diet like the Mediterranean diet. Increase good fats in the diet. Increase exercise. Monitor labs as needed. Continue atorvastatin Assessment & Plan (02/15/2022 8:49 PM CDT): Encouraged patient to follow low fat/low chol diet like the Mediterranean diet. Increase good fats in the diet. Increase exercise. Monitor labs as needed. Continue lipitor Assessment & Plan (01/24/2022 12:28 PM COIN MACHINE SUPERVISOR): Encouraged patient to follow fat/low chol diet like the Mediterranean diet. Increase good fats in the diet. Increase exercise. Monitor labs as needed. 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 Assessment & Plan (01/24/2022 12:28 PM COIN MACHINE SUPERVISOR): History of stroke. Continue to control hypertension and ASA Gastroesophageal reflux disease without esophagi tis 01/04/2022 Assessment & Plan (03/03/2025 11:40 PM CDT): Continue with omeprazole p.r.n. Assessment & Plan (10/18/2023 4:06 PM COIN MACHINE SUPERVISOR): Continue PPI p.r.n. Assessment & Plan (05/07/2023 10:49 AM CDT): Continue PPI p.r.n. Assessment & Plan (10/16/2022 2:50 PM COIN MACHINE SUPERVISOR): Continue PPI p.r.n. Assessment & Plan (02/15/2022 8:50 PM CDT): Continue PPI Assessment & Plan (01/24/2022 12:31 PM COIN MACHINE SUPERVISOR): Continue PPI Dry mouth 01/04/2022 Assessment & Plan (01/24/2022 12:31 PM COIN MACHINE SUPERVISOR): This is a significant, separately identifiable problem that was evaluated and managed on the same day as the wellness exam Dry mouth and snoring. Will refer for sleep study to Dr. Yoder Vertigo 01/04/2022 Overview (01/04/2022): Meclizine works Assessment & Plan (04/26/2022 1:13 PM CDT): Patient's vertigo is settling back down with the meclizine. Discussed vestibular therapy but she thinks she is doing pretty good right now. Wants to just use the [id number] meclizine p.r.n.. If her symptoms worsen she is to follow up immediately. She is easily keeping foods and liquids down and feels like the dehydration is completely resolved. Assessment & Plan (01/24/2022 12:30 PM COIN MACHINE SUPERVISOR): Patient has known vertigo. She uses meclizine p.r.n.. Will provide prescription History of COVID-19 01/04/2022 Overview (01/04/2022): 2020 Abnormal findings on diagnostic imaging of breas t 08/03/2018 Resolved Problems Problem Noted Date Diagnosed Date Resolved Date Preoperative clearance 08/05/202403/03 Assessment & Plan (08/05/2024 8:48 PM CDT): Pre-op labs and EKG results are on the chart. I have examined this patient and ordered the appropriate lab work/tests. I have reviewed with patient the inherent risks associated with surgery, not limited to bleeding, infection, DVT, etc. I have also reviewed the increased risk of cardiac complications due to age. EKG revealed possible history of infarct but patient denies any previous history. Patient denies any cardiac sxs with activity. Discussed the option of getting a pre-operative stress test based on age but she doesn't feel it is necessary. Therefore, to the best of my knowledge, there is not a medical contraindication for undergoing this elective surgery with general and/or regional anesthesia. May hold ASA prior to procedure and restart at the discretion of the surgeon base on bleeding risk. Medicare annual wellness visit, subsequent 10/18/2023 05/14/2024 Assessment & Plan (10/18/2023 4:07 PM COIN MACHINE SUPERVISOR): Encouraged healthy lifestyle, good nutrition and exercise. Encouraged Calcium and Vitamin D and weight bearing exercise for bone health. Reviewed immunizations. Reviewed age appropirate screenings. Medicare Wellness Documentation is completed within the chart Need for vaccination 10/18/2023 024 Assessment & Plan (10/18/2023 4:07 PM COIN MACHINE SUPERVISOR): Flu vaccine updated in the office today BMI 33.0-33.9,adult 05/07/2023 07/24/20 24 Assessment & Plan (05/14/2024 11:01 PM CDT): Discussed the patient's BMI. The BMI is above average. BMI management plan is completed. BMI Follow-up includes: nutrition counseling, exercise counseling and education provided. Assessment & Plan (10/18/2023 4:06 PM COIN MACHINE SUPERVISOR): Discussed the patient's BMI. The BMI is above average. BMI management plan is completed. BMI Follow-up includes: nutrition counseling, exercise counseling and education provided. Assessment & Plan (05/07/2023 10:51 AM CDT): Discussed the patient's BMI. The BMI is above average. BMI management plan is completed. BMI Follow-up includes: nutrition counseling, exercise counseling and education provided. Annual physical exam 05/07/2023 023 Assessment & Plan (05/07/2023 10:51 AM CDT): Encouraged healthy lifestyle, good nutrition and exercise. Encouraged Calcium and Vitamin D and weight bearing exercise for bone health. Reviewed immunizations Reviewed age appropirate screenings. 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 Is having back pain that is really focal in the left buttock. Appears to be a hematoma along with the area of laceration that is healing well. Will check x-rays to rule out any bony abnormality. Apply T0 to the area. Encouraged warm compresses for the next week or 2 and will recheck to make sure it is beginning to resolve. If she has any loss of bowel or bladder control or any increased pain she is to follow up immediately. Also reviewed signs and symptoms of infection if those would occur near the laceration she is to call immediately. Traumatic hematoma of buttock 03/27/2023 05/14/2024 Assessment & Plan (05/07/2023 10:50 AM CDT): Patient fell and has a traumatic hematoma in the buttock. It continues to shrink in size. It is no longer painful. I recommend continued monitoring. Can continue to apply warm compresses to the area. If it will get larger or begins to note return of pain she is to follow up immediately. She is in agreement with the plan Assessment & Plan (04/10/2023 6:56 PM CDT): Bruising is continuing to improve. She still has significant hematoma. Is tender and still pretty firm I do not think draining it in the office is going to help with the symptoms. Encouraged warm compresses to the area. Follow-up in 3-4 weeks reassess again for symptoms worsen she begins to have any additional symptoms she is to follow up immediately. She is in agreement with the plan Assessment & Plan (03/27/2023 4:56 PM CDT): Patient fell in the bathroom. Is having back pain that is really focal in the left buttock. Appears to be a hematoma along with the area of laceration that is healing well. Will check x-rays to rule out any bony abnormality. Apply T0 to the area. Encouraged warm compresses for the next week or 2 and will recheck to make sure it is beginning to resolve. If she has any loss of bowel or bladder control or any increased pain she is to follow up immediately. Also reviewed signs and symptoms of infection if those would occur near the laceration she is to call immediately. Obesity (BMI 30-39.9) 03/09/20232022 Assessment & Plan (03/09/2023 9:35 AM CDT): Discussed the patient's BMI. The BMI is above average. BMI management plan is completed. BMI Follow-up includes: nutrition counseling, exercise counseling and education provided. BMI 33.0-33.9,adult 03/09/2023 03/23/20 Assessment & Plan (03/09/2023 9:35 AM CDT): Discussed the patient's BMI. The BMI is above average. BMI management plan is completed. BMI Follow-up includes: nutrition counseling, exercise counseling and education provided. Obesity (BMI 30-39.9) 09/23/20222022 Assessment & Plan (09/23/2022 2:33 PM CDT): Obesity is unchanged. Discussed the patient's BMI. The BMI is above average. BMI management plan is completed. BMI Follow-up includes: nutrition counseling, exercise counseling and education provided. Medicare annual wellness visit, subsequent 09/23/2022 05/07/2023 Assessment & Plan (10/16/2022 2:50 PM COIN MACHINE SUPERVISOR): Encouraged healthy lifestyle, good nutrition and exercise. Encouraged Calcium and Vitamin D and weight bearing exercise for bone health. Reviewed immunizations. Reviewed age appropirate screenings. Medicare Wellness Documentation is completed within the chart Need for immunization against influenza 09/23/2022 05/07/2023 Assessment & Plan (10/16/2022 2:51 PM COIN MACHINE SUPERVISOR): Flu vaccine updated in the office today Obesity (BMI 30-39.9) 04/26/20222021 Assessment & Plan (04/26/2022 12:17 PM CDT): Obesity is unchanged. Discussed the patient's BMI. The BMI is above average. BMI management plan is completed. BMI Follow-up includes: nutrition counseling, exercise counseling and education provided. BMI 31.0-31.9,adult 04/26/2022 09/23/20 Assessment & Plan (04/26/2022 12:18 PM CDT): Obesity is unchanged. Discussed the patient's BMI. The BMI is above average. BMI management plan is completed. BMI Follow-up includes: nutrition counseling, exercise counseling and education provided. Obesity (BMI 30-39.9) 02/15/20222021 Assessment & Plan (02/15/2022 8:14 AM CDT): Weight/BMI is in healthy range. Continue healthy lifestyle to maintain. BMI 31.0-31.9,adult 02/15/2022 04/26/20 Assessment & Plan (02/15/2022 8:14 AM CDT): Obesity is unchanged. Discussed the patient's BMI. The BMI is above average. BMI management plan is completed. BMI Follow-up includes: nutrition counseling, exercise counseling and education provided. Fatigue 01/24/2022 05/14/2024 Assessment & Plan (10/18/2023 4:06 PM COIN MACHINE SUPERVISOR): Probably multifactorial. Check labs and followup to re-evaluate Assessment & Plan (05/07/2023 10:50 AM CDT): Probably multifactorial. Check labs and followup to re-evaluate Assessment & Plan (04/26/2022 1:13 PM CDT): Probably multifactorial. Check labs and followup to re-evaluate Assessment & Plan (01/24/2022 12:31 PM COIN MACHINE SUPERVISOR): Probably multifactorial. Check labs and followup to re-evaluate Snoring 01/18/2022 05/18/2022 Assessment & Plan (01/24/2022 12:31 PM COIN MACHINE SUPERVISOR): This is a significant, separately identifiable problem that was evaluated and managed on the same day as the wellness exam Patient has history of snoring and dry mouth. Her dentist has recommended a sleep study. Will refer to Dr. Yoder Assessment & Plan (01/18/2022 10:18 AM COIN MACHINE SUPERVISOR): The patient presents with a history of snoring, daytime hypersomnia and morning dry mouth. I have recommended proceeding with a nocturnal polysomnogram with a split night protocol if necessary and no MSLT. She will follow-up with me in 3 months. Obesity (BMI 30-39.9) 01/04/20222021 Assessment & Plan (01/04/2022 2:23 PM COIN MACHINE SUPERVISOR): Obesity is unchanged. Discussed the patient's BMI. The BMI is above average. BMI management plan is completed. BMI Follow-up includes: nutrition counseling, exercise counseling and education provided. BMI 31.0-31.9,adult 01/04/2022 02/16/20 22 Assessment & Plan (01/04/2022 2:24 PM COIN MACHINE SUPERVISOR): Obesity is unchanged. Discussed the patient's BMI. The BMI is above average. BMI management plan is completed. BMI Follow-up includes: nutrition counseling, exercise counseling and education provided. Annual physical exam 01/04/2022 022 Assessment & Plan (01/24/2022 12:27 PM COIN MACHINE SUPERVISOR): Encouraged healthy lifestyle, good nutrition and exercise. Encouraged Calcium and Vitamin D and weight bearing exercise for bone health. Reviewed immunizations Reviewed age appropirate screenings. Mass of breast 09/13/2017 05/14/2024 Encounters Date Type Department Care Team Description 05/22/2025 Results Follow-Up [facility] [address] [facility] [address] [place] [address] Neck Soft Tissue W Contrast 05/10/2025 2:35 PM CDT - 05/10/2025 11:59 PM CDT Hospital Encounter [facility] [address] [address] Thyroid nodule Discharge Disposition: Discharge to home or self care 05/08/2025 Results Follow-Up [facility] at [address] [phone] Madai Kohli NP XR Foot Left 3+ Vw 05/07/2025 9:00 AM CDT Ancillary Procedure [facility] at [address] [phone] Pain of toe of left foot 05/04/2025 11:15 AM CDT Office Visit [facility] at [address] [phone] Coty Burgess PA Pain of toe of left foot (Primary Dx) 04/16/2025 Orders Only [facility] [address] [place] [address] [place] [phone] Evelyne Tamayo PA Thyroid nodule (Primary Dx) 04/01/2025 Telephone [facility] at [address] [place] [address] Evelyne Tamayo PA Test Results 03/21/2025 Results Follow-Up [address] [place] [address] Evelyne Tamayo PA US Thyroid 03/21/2025 Orders Only [address] [place] [address] Provider, MD Tess from Last 3 Months Immunizations Immunization Administration Dates Next Due Influenza, Quadrivalent, Hig h Dose, Preservative Free, Intrr 09/28/2023,09/23/2022 Influenza, Trivalent, Preser vative Free, Intramuscular 11/11/2015 Influenza, Unspecified 11/21/2024(Deferr ed: Patient Refused),11/21/2021(Deferred: Patient Refused),11/21/2020(Deferred: Patient Refused) Surgical History Surgery Date Site/Laterality Comments HYSTERECTOMY 11/21/1987 - 11/20/1988 MASTECTOMY 07/22/2024 - 08/20/2024 Left Medical History Medical History Date Comments Hypertension Stroke (HCC) 1999 GERD (gastroesophageal reflux disease) Diabetes mellitus (HCC) Cancer (HCC) Family History Medical History Relation Name Comments Lung cancer Father Family history of lung cancer - (Added by TW Conv) Congenital heart disease Mother Heart disease Mother Relation Name Status Comments Father Mother Social History Tobacco Use Types Packs/Day Years Used Date Smoking Tobacco: Never Smokeless Tobacco: Never Tobacco Cessation:Counseling Given: Not Answered Alcohol Use Standard Drinks/Week Comments No 0 (1 standard drink = 0.6 oz pur e alcohol) AUDIT-C Answer Date Recorded Q1: How often do you have a drink containing alcohol? Never 02/25/2025 Q2: How many drinks containi ng alcohol do you have on a typical day when you are drinking? Patient does not drink Q3: How often do you have si x or more drinks on one occasion? Never 02/25/2025 PHQ-2 Answer Date Recorded PHQ-2 Total Score (If total score is 3 or more points, staff should administer the PHQ-9) 0 02/25/2025 Comments No Sex and Gender Information Value Date Recorded Sex Assigned at Not on file Legal Sex Female 11:57 AM COIN MACHINE SUPERVISOR Gender Identity Not on file Sexual Orientation Not on file Obstetrics History Last Filed Vital Signs Vital Sign Reading Time Taken Comments Blood Pressure 145/79 05/04/2025 10:51 AM CDT Pulse 74 05/04/2025 10:51 AM CDT Temperature 36.6 C (97.8 F) 05/04/2025 10:51 AM CDT Respiratory Rate 18 05/04/2025 10:51 AM CDT Oxygen Saturation 96% 05/04/2025 10:51 AM CDT Inhaled Oxygen Concentration - - Weight 92.6 kg (204 lb 3.2 oz) 05/04/2025 10:51 AM CDT Height 165.1 cm (5' 5) 05/04/2025 10:51 AM CDT Body Mass Index 33.98 05/04/2025 10:51 AM CDT Plan of Treatment Health Maintenance Due Date Last Done Comments Hepatitis C Screening 1945 Foot Exam 1945 DTaP/Tdap/Td Vaccine (1 - Tdap) 1958 Hepatitis B Screening 1965 Zoster Vaccine (1 of 2) 1966 Covid-19 Vaccine (3 - Pfizer risk series) 03/20/2021 02/20/2021, 01/30/2021 Colon Cancer Screening-FIT 10/01/2021 10/01/2020 Colon Cancer Screening-FOBT 10/01/2021 10/01/2020 Colon Cancer Screening-DNA Stool 10/01/2023 10/01/20 20 Breast Cancer Screening-Mammogram 06/08/2025 06/08/2024, 06/08/2024, 05/30/2024, Additional history exists Hemoglobin A1C 07/01/2025 01/01/2025, 04/21, 09/19/2023, Additional history exists Influenza Vaccine (#1) 2025 , 09/23/2022, 11/11/2015 Colon Cancer Screening-CT Colonography 10/01/2025 10/01/2020 Colon Cancer Screening-Colonoscopy 10/01/2025 10/01/2020 Colon Cancer Screening-Sigmoidoscopy 10/01/2025 10/01/2020 Colorectal Cancer Screening 10/01/2025 Albumin Creatinine Ratio, Urine 01/01/2026 01/01/2025, 05/08/2024, 09/19/2023 Lipid Panel 01/01/2026 01/01/2025, 04/21, 09/19/2023, Additional history exists eGFR 01/01/2026 01/01/2025, 04/21, 09/19/2023, Additional history exists Depression Screening 02/25/2026 02/25/2025, 11/27/2024, 07/24/2024, Additional history exists Fall Risk Assessment 02/25/2026 02/25/2025, 11/27/2024, 07/24/2024, Additional history exists Well Visit 65+ 02/25/2026 02/25/2025, 04/22, 09/28/2023, Additional history exists Dilated Eye Exam 2026 2025, 03/2024, 06/25/2024, Additional history exists Osteoporosis Screening-Bone Density Scan 08/02/2026 08/02/2024, 08/02/2024, 08/14/2021 Pneumococcal vaccine 65+ Discontinued Procedures Procedure Name Priority Date/Time Associated Diagnosis Comments CT SOFT TISSUE NECK W CONTRAST Schedule Routine, Read Routine (OP Routine) 05/10/2025 2:50 PM CDT Thyroid nodule POCT CREATININE FOR CONTRAST EVALUATION Routine 05/10/2025 2:48 PM CDT XR FOOT LEFT 3 OR MORE VIEWS Schedule Routine, Read Routine (OP Routine) 05/07/2025 8:58 AM CDT Pain of toe of left foot DIABETES EYE EXAM Routine 2025 2:43 PM CDT EGFR Routine 01/01/2025 8:52 AM COIN MACHINE SUPERVISOR Hypertension associated with diabetes (HCC) HEMOGLOBIN A1C Routine 01/01/2025 8:52 AM COIN MACHINE SUPERVISOR Hypertension associated with diabetes (HCC) LIPID PANEL Routine 01/01/2025 8:52 AM COIN MACHINE SUPERVISOR Hypertension associated with diabetes (HCC) ALBUMIN CREATININE RATIO, URINE Routine 01/01/2025 8:52 AM COIN MACHINE SUPERVISOR Hypertension associated with diabetes (HCC) SCREENING MAMMOGRAM BILATERAL W BEHZAD Schedule Routine, Read Routine (OP Routine) 06/08/2024 Breast cancer screening by mammogram DEXA SCAN Routine 08/14/2021 COLONOSCOPY Routine 10/01/2020 from Last 3 Months or Most Recently Relevant to Health Maintenance Results * CT Neck Soft Tissue W Contrast (05/10/2025 2:50 PM CDT) Anatomical Region Laterality Modality Head and Neck N/A Computed Tomogra phy 05/22/2025 7:16 AM CDT Narrative 05/22/2025 8:31 PM CDT EXAM DESCRIPTION: CT SOFT TISSUE NECK W CONTRAST REASON FOR STUDY: Thyroid nodule, Persistant thyroid nodule becoming more tender. Persistent thyroid nodule becoming more tender for one month. Hx of breast cancer with left mastectomy. TECHNIQUE: Post IV contrast scanning from skull base through lung apices. Reconstructed MPR images reviewed. All images stored on PACS. Automated exposure control was used as a dose optimization technique for this examination. CONTRAST TYPE/DOSE: 100mL of IOVERSOL 350 MG IODINE/ML INTRAVENOUS SYRINGE injected via intravenous COMPARISON: No direct comparison is available. Relevant portions of the thyroid ultrasound dated 03/08/2025. FINDINGS: Status post right eye cataract surgery. Right maxillary sinus floor polypoid mucosal thickening. Chronic nasal bone deformity the nasal septum is deviated to the right with a small spur formation. Focal opacified left upper nasal passage (series 5, image 29). A few partially opacified left mastoid air cells. The temporomandibular joints are symmetrically placed. The zygomatic arches are intact. The bilateral parotid and submandibular glands enhance symmetrically. The dental amalgam related streak artifact limits the assessment of the adjacent structures including the oral cavity and oropharynx. The vocal cords are adducted obscuring evaluation supraglottic larynx and glottic region. If there is concern for pathology in these areas then please correlate visualization. Mild rightward placement of the cervical trachea due to the enlarged thyroid gland as discussed below. No parapharyngeal or retropharyngeal fluid collection. Marked heterogeneous enlarged thyroid gland with numerous nodules. The nodules are better assessed on dedicated ultrasound dated 03/08/2025, please note multiple of the nodules meet criteria for fine-needle aspiration and recommend FNA if not performed in the interval. Maximum dimensions of the right lobe of 4.2 x 2.3 x 5.2 cm, left lobe of 3.8 x 2.6 x 5 cm and maximum AP dimension of the isthmus of 4.5 cm. A small component extends into the upper mediastinum. Left neck level 3 low-attenuation lymph node measuring upto 1 x 1.2 x 1.3 cm is indeterminate. Elsewhere in the neck there are a few scattered subcentimeter lymph nodes on both sides, nonspecific by CT size criteria. The bilateral internal jugular veins are contrast filled. The bilateral common carotid arteries and cervical internal carotid arteries are patent. Lung apices without a focal pneumonic consolidation. The cervical vertebral body heights are maintained. Moderate to severe intervertebral disc height loss with endplate degenerative changes and marginal spur formation at C6-C7 and to a lesser extent at C5-C6 and remainder of the cervical levels. A few scattered rounded lucent lesions in the cervical spine kyphotic example posterior margin of C5 vertebral body measuring 4 mm (series 6, image 39) and posterior margin of C7 vertebral body measuring 4 mm (series 6, image 43). IMPRESSION: 1. Marked heterogeneity enlarged multinodular thyroid gland as above, the nodules are better assessed on the dedicated ultrasound dated 03/08/2025. Multiple nodules meet criteria for fine-needle aspiration of the previous ultrasound. Recommend fine-needle aspiration if not performed in the interval. 2. The left level 3 relative low-attenuation lymph node is indeterminate. In a patient with known history of malignancy please correlate with previous imaging studies to demonstrate stability. Otherwise clinical aspects of the case will determine the need for fine-needle aspiration, PET-CT versus surveillance contrast-enhanced neck CT. 3. Focal opacified left upper nasal passage. Please correlate with direct visualization. 4. Scattered lucent lesions in the cervical spine without previous imaging studies for comparison are indeterminate. Advanced demineralization or intraosseous hemangiomas can have similar appearance. If there is concern for metastases then recommend contrast-enhanced cervical spine MRI. THIS IS AN ELECTRONICALLY VERIFIED FINAL REPORT 05/22/2025 8:31 PM - Electronically signed by Cliff Dean D.O. AP: AP Report ID: [id number] Reading Location: [id number] Procedure Note Cliff Dean, DO - 05/22/2025 EXAM DESCRIPTION: CT SOFT TISSUE NECK W CONTRAST REASON FOR STUDY: Thyroid nodule, Persistant thyroid nodule becomingmore tender. Persistent thyroid nodule becoming more tender for one month. Hx of breast cancer with left mastectomy. TECHNIQUE: Post IV contrast scanning from skull base through lung apices. Reconstructed MPR images reviewed. All images stored on PACS. Automated exposure control was used as a dose optimization technique for this examination. CONTRAST TYPE/DOSE: 100mL of IOVERSOL 350 MG IODINE/ML INTRAVENOUSSYRINGE injected via intravenous COMPARISON: No direct comparison is available. Relevant portions of the thyroid ultrasound dated 03/08/2025. FINDINGS: Status post right eye cataract surgery. Right maxillary sinusfloor polypoid mucosal thickening. Chronic nasal bone deformity the nasalseptum is deviated to the right with a small spur formation. Focal opacified leftupper nasal passage (series 5, image 29). A few partially opacified left mastoid air cells. The temporomandibular joints are symmetrically placed. The zygomatic arches are intact. The bilateral parotid and submandibular glands enhance symmetrically. The dental amalgam related streak artifact limits the assessment of the adjacent structures including the oral cavity and oropharynx. The vocalcords are adducted obscuring evaluation supraglottic larynx and glottic region.If there is concern for pathology in these areas then please correlate visualization. Mild rightward placement of the cervical trachea due tothe enlarged thyroid gland as discussed below. No parapharyngeal or retropharyngeal fluid collection. Marked heterogeneous enlarged thyroid gland with numerous nodules. The nodules are better assessed on dedicated ultrasound dated 03/08/2025,please note multiple of the nodules meet criteria for fine-needle aspiration and recommend FNA if not performed in the interval. Maximum dimensions of the right lobe of 4.2 x 2.3 x 5.2 cm, left lobe of 3.8 x 2.6 x 5 cm andmaximum AP dimension of the isthmus of 4.5 cm. A small component extends into theupper mediastinum. Left neck level 3 low-attenuation lymph node measuring upto 1 x 1.2 x 1.3cm is indeterminate. Elsewhere in the neck there are a few scattered subcentimeter lymph nodes on both sides, nonspecific by CT size criteria. The bilateral internal jugular veins are contrast filled. The bilateral common carotid arteries and cervical internal carotid arteries are patent. Lung apices without a focal pneumonic consolidation. The cervical vertebral body heights are maintained. Moderate to severe intervertebral disc height loss with endplate degenerative changes and marginal spur formation at C6-C7 and to a lesser extent at C5-C6 andremainder of the cervical levels. A few scattered rounded lucent lesions in the cervical spine kyphotic example posterior margin of C5 vertebral body measuring 4 mm (series 6, image 39) and posterior margin of C7 vertebralbody measuring 4 mm (series 6, image 43). IMPRESSION: 1. Marked heterogeneity enlarged multinodular thyroid gland as above,the nodules are better assessed on the dedicated ultrasound dated 03/08/2025. Multiple nodules meet criteria for fine-needle aspiration of the previous ultrasound. Recommend fine-needle aspiration if not performed in the interval. 2. The left level 3 relative low-attenuation lymph node isindeterminate. In a patient with known history of malignancy please correlate withprevious imaging studies to demonstrate stability. Otherwise clinical aspects ofthe case will determine the need for fine-needle aspiration, PET-CT versus surveillance contrast-enhanced neck CT. 3. Focal opacified left upper nasal passage. Please correlate withdirect visualization. 4. Scattered lucent lesions in the cervical spine without previousimaging studies for comparison are indeterminate. Advanced demineralization or intraosseous hemangiomas can have similar appearance. If there is concernfor metastases then recommend contrast-enhanced cervical spine MRI. THIS IS AN ELECTRONICALLY VERIFIED FINAL REPORT 05/22/2025 8:31 PM - Electronically signed by Cliff Dean D.O. AP: AP Report ID: [id number] Reading Location: [place] [address] us Evelyne COLIN[address]ES IMG CT PROCEDURES Final Re sult * POCT creatinine for contrast evaluation (05/10/2025 2:48 PM CDT) Creatinine POC 1.10 0.60 - 1.10 mg/dL Comment:Testing performed by : [facility], [address] [place] [address]., [id number] Blood 05/10/2025 2:48 PM CDT 05/10/2025 2:48 PM CDT us Evelyne COLINDRES POINT OF CARE TEST ORDERAB LES Final Result [id number] [id number] [facility] [place] [address] * XR Foot Left 3+ Vw (05/07/2025 8:58 AM CDT) Anatomical Region Laterality Modality Lower Extremities, Foot Left Digital Radiography 05/07/2025 9:01 PM CDT Narrative 05/07/2025 9:02 PM CDT EXAM DESCRIPTION: XR FOOT LEFT 3 OR MORE VIEWS REASON FOR STUDY: toe pain Pt complains of sharp shooting pain in great toe x 4 days ago. Feels like a nerve pain. No known injury or prior surgery TECHNIQUE: There are 3 radiographic view(s) of the left foot . COMPARISON: No prior. FINDINGS: Decreased mineralization. No acute fracture or dislocation. 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 Moderate of the navicular-medial and middle cuneiform. Small plantar calcaneal spur. Soft tissues are unremarkable. IMPRESSION: 1. No acute fracture. 2. Dbor-zy-nperuxzp osteoarthritis as above. 3. Small plantar calcaneal spur. THIS IS AN ELECTRONICALLY VERIFIED FINAL REPORT 05/07/2025 9:02 PM - Electronically signed by Da SRINIVASAN T: Report ID: [id number] Reading Location: [id number] Procedure Note Da Coronado MD - 05/07/2025 EXAM DESCRIPTION: XR FOOT LEFT 3 OR MORE VIEWS REASON FOR STUDY: toe pain Pt complains of sharp shooting pain in great toe x 4 days ago. Feels likea nerve pain. No known injury or prior surgery TECHNIQUE: There are 3 radiographic view(s) of the left foot . COMPARISON: No prior. FINDINGS: Decreased mineralization. 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 Moderate of the navicular-medial and middle cuneiform. Small plantar calcaneal spur.Soft tissues are unremarkable. IMPRESSION: 1. No acute fracture. 2. Xjhd-ip-burqpthh osteoarthritis as above. 3. Small plantar calcaneal spur. THIS IS AN ELECTRONICALLY VERIFIED FINAL REPORT 05/07/2025 9:02 PM - Electronically signed by Da SRINIVASAN T: Report ID: [id number] Reading Location: [id number] Coty COLINDRES IMG XR PROCEDURES Final Result * DIABETES EYE EXAM (2025 2:43 PM CDT) SCRIBED HM DIABETIC DILATED EYE EXAM Normal Historical Provider HEALTH MAINTENANCE Edited Result - Final * eGFR (01/01/2025 8:52 AM COIN MACHINE SUPERVISOR) eGFR 82 >=60 mL/min/1. 73 m2 Comment: Interpretive Data Reference Interval Normal >/= 90 mL/min/1.73m2 Mildly decreased* 60 - 89 mL/min/1.73m2 Mildly to moderately decreased 45 - 59 mL/min/1.73m2 Moderately to severely decreased 30 - 44 mL/min/1.73m2 Severely decreased 15 - 29 mL/min/1.73m2 Kidney Failure < 15 mL/min/1.73m2 *Relative to young adult level Estimated glomerular filtration rate is determined by the 2020 CKD-EPI equation recommended by the National Kidney Foundation (A Unifying Approach to GFR Estimation: Recommendations of the NKF-ASK Task Force on Reassessing the Inclusion of Race in Diagnosing Kidney Disease, JASN 2020). The CKD-EPI equation should not be used for patients with unstable renal function and has not been validated in children and those over 70. Current interpretive data was last reviewed 2021. Blood 01/01/2025 8:52 AM COIN MACHINE SUPERVISOR 01/01/2025 5:31 PM COIN MACHINE SUPERVISOR Evelyne COLINDRES LAB BLOOD ORDERABLES Final Result MANNIE PACHECO [id number] [address] Department [place] [address] * Albumin Creatinine Ratio, Urine (01/01/2025 8:52 AM COIN MACHINE SUPERVISOR) Albumin Ur <12.0 mg/L Comment: Interpretive Data No reference range established. Current interpretive data was last revised 2019. Creatinine Ur 45.8 mg/dL MANNIE PACHECO Comment: Interpretive Data No reference range established. Current interpretive data was last revised 2019. Albumin Creatinine Ratio, Ur <26 1 - 29 mg/g MANNEI PACHECO Urine 01/01/2025 8:52 AM COIN MACHINE SUPERVISOR 01/01/2025 5:27 PM COIN MACHINE SUPERVISOR Evelyne COLINDRES LAB URINE ORDERABLES Final Result Performing Organization Address [facility] de Phone Number MANNIE PACHECO [id number] [address] [facility] [place] [address] * (ABNORMAL) Hemoglobin A1c (01/01/2025 8:52 AM COIN MACHINE SUPERVISOR) Hgb A1C 6.9(H) 4.0 - 5.6 % Estimated Average Glucose 151 mg/dL MANNIE PACHECO Comment: The ADA recommends reporting an estimated Average Glucose (eAG) with all Hemoglobin A1c results using the equation derived from a study of 507 normal and diabetic adults. Minority populations were underrepresented and children were not included. (Diabetes Care 31:9612-9017, 2007). The eAG is not equivalent to a fasting glucose. Blood 01/01/2025 8:52 AM COIN MACHINE SUPERVISOR 01/01/2025 5:27 PM COIN MACHINE SUPERVISOR Evelyne COLINDRES LAB BLOOD ORDERABLES Final Result Performing Organization Address [facility] de Phone Number MANNIE PACHECO [id number] [address] [facility] [place] [place] [address] * (ABNORMAL) Lipid panel (01/01/2025 8:52 AM COIN MACHINE SUPERVISOR) Cholesterol 230(H) 30 - 199 mg/dL Comment: Interpretive Data Ages < or = 19 years Acceptable: <170 mg/dL Borderline high: 170-199 mg/dL High: >or= 200 mg/dL Ages > or = 20 years Desirable: <200 mg/dL Borderline high: 200-239 mg/dL High: >or= 240 mg/dL Literature References: 1. Expert Panel on Integrated Guidelines for Cardiovascular Health and Risk Reduction in Children and Adolescents. Pediatrics 2011;128:S213 2. NCEP Expert Panel. Circulation 2004;110:227 Current Interpretive Data was last revised on 2018. Triglycerides 319(H) <=149 mg/dL MANNIE PACHECO Comment: Interpretive Data Ages < or = 9 years Acceptable: <75 mg/dL Borderline high: 75-99 mg/dL High: >or= 100 mg/dL Ages 10 to 20 years Acceptable: <90 mg/dL Borderline high: 90-129 mg/dL High: >or= 130 mg/dL Ages > or = 20 years Desirable: <150 mg/dL Borderline high: 150-199 mg/dL High: 200-499 mg/dL Very high: >or= 499 mg/dL Literature References: 1. Expert Panel on Integrated Guidelines for Cardiovascular Health and Risk Reduction in Children and Adolescents. Pediatrics 2011;128:S213 2. NCEP Expert Panel. Circulation 2004;110:227 Current Interpretive Data was last revised on 2018. HDL 35(L) >=40 mg/dL MANNIE PACHECO Comment: Interpretive Data Ages < or = 19 years Acceptable: >45 mg/dL Borderline low: 40-45 mg/dL Low: <40 mg/dL Ages > or = 20 years Desirable: >or= 60 mg/dL Low: <40 mg/dL Literature References: 1. Expert Panel on Integrated Guidelines for Cardiovascular Health and Risk Reduction in Children and Adolescents. Pediatrics 2011;128:S213 2. NCEP Expert Panel. Circulation 2004;110:227 Current Interpretive Data was last revised on 2018. LDL, calculated 137(H) <=129 mg/dL MANNIE PACHECO Comment: Interpretive Data Ages < or = 19 years Acceptable: <110 mg/dL Borderline high: 110-129 mg/dL High: >or= 130 mg/dL Ages > or = 20 years Optimal: <100 mg/dL Near optimal: 100-129 mg/dL Borderline high: 130-159 mg/dL High: >160 mg/dL Calculated using the Rhett LDL-C estimating equation. This equation was implemented on 2024. Prior to this date LDL-C was estimated using the Friedewald equation. Literature References: 1. Expert Panel on Integrated Guidelines for Cardiovascular Health and Risk Reduction in Children and Adolescents. Pediatrics 2011;128:S213 2. NCEP Expert Panel. Circulation 2004;110:227 3. Rhett Alcocer al. CONSTANCE Cardiol. 2019March 21;5(5):540-548. doi: 10.1001/jamacardio.2020.0013 Current Interpretive Data was last revised on 2024. Non-HDL Cholesterol 195 mg/dL MANNIE PACHECO Comment: Interpretive Data Ages < or = 19 years Acceptable: <120 mg/dL Borderline high: 120-144 mg/dL High: >145 mg/dL Ages > or = 20 years When triglycerides are >200 mg/dL, Non-HDL cholesterol is a secondary target of therapy with treatment goals that are 30 mg/dL greater than the LDL cholesterol target. Literature References: 1. Expert Panel on Integrated Guidelines for Cardiovascular Health and Risk Reduction in Children and Adolescents. Pediatrics 2011;128:S213 2. NCEP Expert Panel. Circulation 2004;110:227 Current Interpretive Data was last revised on 2018. Chol/HDL ratio 7 MANNIE PACHECO Blood 01/01/2025 8:52 AM COIN MACHINE SUPERVISOR 01/01/2025 5:27 PM COIN MACHINE SUPERVISOR Evelyne COLINDRES LAB BLOOD ORDERABLES Final Result Performing Organization Address City/State/[facility] Co de Phone Number MANNIE [phone] [address] Department [place] [address] * (ABNORMAL) Screening Mammogram Bilateral W Behzad (06/08/2024) Anatomical Region Laterality Modality Breast Bilateral Mammography 06/08/2024 Evelyne COLINDRES IMG MAMMO PROCEDURES Edite d Result - Final * DEXA SCAN (08/14/2021) Tess Ji MD HEALTH MAINTENANCE Final Result * (ABNORMAL) HM COLONOSCOPY (10/01/2020) Dhiraj Shukla MD HEALTH MAINTENANCE Edited Resu lt - Final from Last 3 Months or Most Recently Relevant to Health Maintenance Insurance AETNA MEDICARE GOLD AETNA MEDICARE GOLD IDPA AETNA MEDICARE GOLD IDPA Care Teams Missile Pad Mechanic Relationship Specialty Start Date End Date Evelyne Tamayo PA [address] [place] [address] PCP - General Internal Medicine 12/15/21
--- OUTSIDE RECORDS SUMMARY | 2025-06-20 09:56 | XMS_ITS | Encounter Summary ---
Author Organization [facility] Healthcare Address [address] [place] [address] Care Team Providers Care Maintenance Specialist Name Role Phone Evelyne Tamayo Primary Care Provider [phone] Encounter Details Date Type Department Care Team (Late st Contact Info) Description 05/08/2025 Results Follow-Up [facility] Medical [facility] [place] [address] [place] [address] Madai Kohli NP [address] [facility] [address] [place] [address] XR Foot Left 3+ Vw Social History Tobacco Use Types Packs/Day Years Used Date Smoking Tobacco: Never Smokeless Tobacco: Never Alcohol Use Standard Drinks/Week Comments No 0 [...] on file Legal 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
--- OUTSIDE RECORDS SUMMARY | 2025-06-20 09:56 | XMS_ITS | Clinical Summary ---
Author Organization [facility] Address [address] [place] [address] Phone Care Team Providers Care Wire Transfer Clerk Name Role Phone Evelyne Tamayo PAC Primary Care Provider [phone] Da Espinosa MD Unavailable [phone] Sheryl Carroll MD Unavailable Allergies Active Allergy Reactions Criticality Noted Date Comments Penicillins Rash Medium 09/28/2017 Medications metFORMIN (GLUCOPHAGE-XR) 500 MG TABLET SR 24 HR Take 500 mg by mouth. 06/11/2024 Active lisinopril (PRINIVIL, ZESTRIL) 2.5 MG Tablet Take 2.5 mg by mouth. 05/14/2024 Active metoprolol tartrate (LOPRESSOR) 50 MG Tablet Take 50 mg by mouth 2 times daily. Active omeprazole (PriLOSEC) 20 MG CAPSULE DELAYED RELEASE Take 1 Capsule by mouth daily. 06/11/2024 Active aspirin EC 81 MG Tablet Delayed Response Take 81 mg by mouth daily. Active atorvastatin (LIPITOR) 20 MG Tablet Take 20 mg by mouth daily. Active Vitamin D3 (CHOLECALCIFERO L) 125 MCG Tablet Take 5,000 Units by mouth. 03/14/2024 Active anastrozole (ARIMIDEX) 1 MG TabletIndicatio ns:Malignant neoplasm of lower-outer quadrant of left breast of female, estrogen receptor positive (HCC),Ductal carcinoma in situ (DCIS) of left breast Take 1 Tablet by mouth daily 90 Tablet 1 01/31/2025 Active calcium 600 MG Tablet Take 600 mg by mouth daily. Active Magnesium (CVS Triple Magnesium Complex) 400 MG Capsule Take by mouth. Active Active Problems Problem Noted Date Diagnosed Date HTN (hypertension) 09/13/2024 Encounters Date Type Department Care Team Description 05/02/2025 1:30 PM CDT Office Visit [facility] [address] [phone] Lia Loredo, GLEASON OPERATOR, STOCKFEED MILLER Malignant neoplasm of lower-outer quadrant of left breast of female, estrogen receptor positive (HCC) (Primary Dx); Use of aromatase inhibitors; Chronic fatigue; Abnormal thyroid scan 05/02/2025 1:15 PM CDT Lab [facility] [address] [phone] [facility] neoplasm of lower-outer quadrant of left breast of female, estrogen receptor positive (HCC); Ductal carcinoma in situ (DCIS) of left breast; Post-menopausal; Use of anastrozole 05/02/2025 Travel from Last 3 Months Family History Medical History Relation Name Comments Lung Cancer Father Relation Name Status Comments Daughter Alive Father Mother Sister Alive Social History Tobacco Use Types Packs/Day Years Used Date Smoking Tobacco: Never Smokeless Tobacco: Never Tobacco Cessation:Counseling Given: Not Answered Alcohol Use Standard Drinks/Week Comments Never 0 (1 standard drink = 0.6 oz pur e alcohol) Comments Unknown Sex and Gender Information Value Date Recorded Sex Assigned at Female 08/18/2024 9:00 AM CDT Legal Sex Female 2:50 PM CDT Gender Identity Female 08/18/2024 9:00 AM CDT Sexual Orientation Straight 08/18/2024 9: 00 AM CDT Last Filed Vital Signs Vital Sign Reading Time Taken Comments Blood Pressure 128/80 05/02/2025 1:32 PM CDT Pulse 73 05/02/2025 1:32 PM CDT Temperature 36.6 C (97.8 F) 05/02/2025 1:32 PM CDT Respiratory Rate 18 05/02/2025 1:32 PM CDT Oxygen Saturation 95% 05/02/2025 1:32 PM CDT Inhaled Oxygen Concentration - - Weight 92.5 kg (204 lb) 05/02/2025 1:32 PM CDT Height 162.6 cm (5' 4) 05/02/2025 1:32 PM CDT Body Mass Index 35.02 05/02/2025 1:32 PM CDT Plan of Treatment Upcoming Encounters Date Type Department Care Team (Late st Contact Info) Description 08/01/2025 1:15 PM CDT Lab [facility] [address] [address] Lab, [facility] 08/01/2025 1:30 PM CDT Office Visit [facility] [address] [address] Sheryl Carroll MD [address] [place] [address] Health Maintenance Due Date Last Done Comments Hepatitis C Virus (HCV) Screening 1945 TdaP Immunization 1945 Pneumococcal Immunization (5 0+ years) (1 of 2 - PCV) 1966 Zoster Immunization (1 of 2) 1966 SARS-COV-2 Immunization (3 - Pfizer risk series) 03/20/2021 02/20/2021, 01/30/2021 Respiratory Syncytial Virus (RSV) Immunization (Adult) (1 - 1-dose 75+ series) 2022 Influenza Immunization (#1) 2025 11/0 06/2023, 09/23/2022, 11/11/2015 DEXA Bone Density 08/02/2026 08/02/2024 Hepatitis B Immunization Aged Out No longer eligible based on patient's age to complete this topic Human Papillomavirus (HPV) Immunization Aged Out No longer eligible b ased on patient's age to complete this topic Meningococcal Immunization (ACWY) Aged Out No longer eligible b ased on patient's age to complete this topic Rotavirus Immunization Aged Out No lo nger eligible based on patient's age to complete this topic Procedures Procedure Name Priority Date/Time Associated Diagnosis Comments CBC WITH AUTO DIFF OH Routine 05/02/2025 1:25 PM CDT CMP (COMPREHENSIVE METABOLIC PANEL) Routine 05/02/2025 1:25 PM CDT Malignant neoplasm of lower-outer quadrant of left breast of female, estrogen receptor positive (HCC) Ductal carcinoma in situ (DCIS) of left breast Post-menopausal Use of anastrozole [facility] BONE DENSITOMETRY AXIAL SKELETON Routine 08/02/2024 1:32 PM CDT Post-menopausal from Last 3 Months or Most Recently Relevant to Health Maintenance Results * (ABNORMAL) CBC WITH AUTO DIFF OH (05/02/2025 1:25 PM CDT) WBC 10.0 4.0 - 10.0 10*3/uL [facility] HGB 12.5 11.2 - 15.7 g/dL [facility] HCT 39.4 34.1 - 44.9 % [facility]NA[facility]ORD[facility] PLT 212 163 - 369 10*3/uL [facility] MPV 11.6 9.4 - 12.4 fL [facility] RBC 4.36 3.93 - 5.22 10*6/uL [facility]NA[facility]ORD[facility] MCV 90 79 - 95 fL [facility]NAG[facility]ORDIN[facility] MCH 28.7 25.6 - 32.2 pg [facility]NA[facility]ORD[facility] MCHC 31.7(L) 32.2 - 36.5 g/dL [facility]NAG[facility]ORD[facility] RDW 12.8 11.6 - 14.4 % [facility] Neutrophils % 64.4 36.0 - 66.0 % [facility] Lymphocytes % 26.9 19.0 - 40.0 % [facility] Monocytes % 6.9 4.1 - 12.1 % [facility]NA[facility] Eosinophils % 1.0 0.0 - 3.5 % [facility]NA[facility]EMENT [facility] Basophils % 0.5 0.0 - 1.0 % [facility]NAGEMENT [facility]ORD[facility] Absolute Neutrophils 6.5 1.4 - 6.6 10*3/uL [facility]NA[facility] Absolute Lymphocytes 2.7 0.8 - 4.0 10*3/uL [facility]NA[facility] Absolute Monocytes 0.7 0.2 - 1.2 10*3/uL [facility] Absolute Eosinophils 0.1 0.0 - 0.4 10*3/uL [facility]NA[facility] Absolute Basophils 0.1 0.0 - 0.1 10*3/uL [facility] CARE MANAGEMENT COORDINATOR [facility] 05/02/2025 1:25 PM CDT Brianna Eaton APRN, STOCKFEED MILLER LAB SEND OUTS F inal Result [facility] CARE MANAGEMENT COORDINATOR [facility] [place] [address], * (ABNORMAL) CMP (COMPREHENSIVE METABOLIC PANEL) (05/02/2025 1:25 PM CDT) Glucose 135(H) 70 - 105 mg/dL [facility] Blood Urea Nitrogen 24 7 - 25 mg/dL [facility] Creatinine 0.7 0.6 - 1.2 mg/dL [facility] Sodium 137 136 - 145 mEq/L [facility] Potassium 4.7 3.5 - 5.1 mEq/L [facility] Chloride 103 98 - 107 mEq/L [facility] Bicarbonate 28 21 - 31 mEq/L [facility] Total Bilirubin 0.3 0.3 - 1.0 mg/dL [facility] Alk. Phosphatase 92 34 - 104 U/L [facility] Aspartate Aminotransferase 13 13 - 39 U/L [facility] Alanine Aminotransferase 14 7 - 52 U/L [facility] Total Protein 6.8 6.4 - 8.9 g/dL [facility] Albumin 3.9 3.5 - 5.7 g/dL [facility] Calcium 10.1 8.6 - 10.3 mg/dL [facility] Anion Gap 10.7 7.0 - 15.0 mEq/L [facility] Globulin 2.9 2.0 - 3.5 g/dL [facility] EGFR 88 >60 ml/min/1. 73m2 [facility] CARE MANAGEMENT COORDINATOR [facility] Comment: This eGFR is calculated using 2020 CKD-EPI Creatinine equation without race modifier based on the NKF-ASN task force recommendations Equation: oFSZ=607*min(SCr/k,1)a*max(SCr/k,1)-1.200*0.9938Age*1.012 (if female), where SCr is serum creatinine, k is 0.7 for females and 0.9 for males, and a is -0.241 for females and -0.302 for males Blood 05/02/2025 1:25 PM CDT Narrative [facility] - 05/02/2025 2:10 PM CDT Release to patient->Immediate IS THE PATIENT REQUIRED TO BE FASTING FOR 8 HOURS?->No us Brianna Eaton APRN, STOCKFEED MILLER CHEMISTRY ORDERAB LES Final Result [facility] [address] [place] [address], * [facility] BONE DENSITOMETRY AXIAL SKELETON (08/02/2024 1:32 PM CDT) Anatomical Region Laterality Modality BODY N/A Other Narrative 08/02/2024 3:25 PM CDT EXAMINATION: [facility] BONE DENSITOMETRY AXIAL SKELETON 08/02/2024 INDICATIONS: Asymptomatic menopausal state. 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 Bilateral femoral neck bone mineral density evaluated. FINDINGS: Femoral neck bone density is 0.9 g per cm2 yielding a T-score of -0.9 and a Z- score of 0.4 IMPRESSION Normal bone density Electronically signed by: BÁRBARA YOON MD Date of Signature: 08/02/2024 15:25:25 Procedure Note Bárbara Yoon MD - 08/02/2024 EXAMINATION: EARNE[facility]INE BONE DENSITOMETRY AXIAL SKELETON 08/02/2024 INDICATIONS: Asymptomatic menopausal state. 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 FINDINGS: Femoral neck bone density is 0.9 g per cm2 yielding a T-score of -0.9 tam Z- score of 0.4 IMPRESSION Normal bone density Electronically signed by: BÁRBARA YOON MD Date of Signature: 08/02/2024 15:25:25 Sheryl Carroll MD IMG DEXA ORDERABLES Final Result from Last 3 Months or Most Recently Relevant to Health Maintenance Insurance MEDICARE C AETNA MEDICAID [place] Care Teams Wire Transfer Clerk Relationship Specialty Start Date End Date Evelyne Tamayo PAC [address] [place] [address] [address] [place] [address] PCP - General Physician [place] 07/16/24 [place] [address] [place] [address] [address] [place], [place] [id number] General Surgery 07/16/24 Sheryl Carroll MD [address] [place] [address] Consulting Physician Oncology 07/16/24
--- OUTSIDE RECORDS SUMMARY | 2025-06-20 09:56 | XMS_ITS | Referral Summary ---
Author Organization [facility] Address [address] [place] [address] Care Team Providers Care Director Of Digital Marketing Name Role Phone Evelyne Tamayo Primary Care Provider [phone]- [phone] Encounters Date Type Department Care Team Description 05/22/2025 Results Follow-Up [facility] Family Medicine [address] [place] [address] Neck Soft Tissue W Contrast 05/10/2025 2:35 PM CDT - 05/10/2025 11:59 PM CDT Hospital Encounter [facility] [address] [address] Thyroid nodule Discharge Disposition: Discharge to home or self care 05/08/2025 Results Follow-Up [facility] Convenient Care at [address] [address] Madai Kohli NP XR Foot Left 3+ Vw 05/07/2025 9:00 AM CDT Ancillary Procedure [facility] Imaging at [address] [address] Pain of toe of left foot 05/04/2025 11:15 AM CDT Office Visit [facility] at [address] [address] Coty Burgess PA Pain of toe of left foot (Primary Dx) 04/16/2025 Orders Only [facility] Family Medicine [address] [place] [address] Evelyne Tamayo PA Thyroid nodule (Primary Dx) 04/01/2025 Telephone [facility] Internal Medicine at [place] [address] [place] [address] [address] [place] [address] Evelyne Tamayo PA Test Results 03/21/2025 Results Follow-Up [facility] Medicine [address] [place] [address] Road [address] [place] [address] Evelyne Tamayo PA US Thyroid 03/21/2025 Orders Only [address] [place] [address] Provider, MD Tess from Last 3 Months Allergies Active Allergy Reactions Criticality Noted Date [...] Order placed to Dr. Michael Dick at [facility] Vitamin D deficiency 03/03/2025 Assessment & Plan (03/03/2025 11:42 PM CDT): Supplement Chronic pain of left knee 11/27/2024 Assessment & Plan (11/27/2024 1:58 PM BACON DE RINDER): Patient has been experiencing left knee symptoms for the last few months. Notices swelling behind the knee and thinks that that has been getting larger. On November 12 had severe knee pain while she was walking in the dining room. [place] like it was not stable and that [...] She would like to be seen in [place] Enlarged thyroid 08/05/2024 Assessment & Plan (03/03/2025 [...] PM CDT): Follows with Dr. Espinosa at [facility]. Planning a wire localized lumpectomy on 08/07 at [facility] for breast biopsy confirmed invasive ductal carcinoma [...] provided. Assessment & Plan (11/27/2024 1:27 PM BACON DE RINDER): Discussed the patient's BMI. The BMI is [...] provided. Assessment & Plan (10/18/2023 4:06 PM BACON DE RINDER): Discussed the patient's BMI. The BMI is [...] maintain. Assessment & Plan (11/27/2024 1:27 PM BACON DE RINDER): Discussed the patient's BMI. The BMI is [...] provided Assessment & Plan (10/16/2022 2:50 PM BACON DE RINDER): Mammogram order provided Allergic contact dermatitis due [...] CPAP. Assessment & Plan (10/18/2023 4:06 PM BACON DE RINDER): Continue per Dr. Yoder. Continue with CPAP. [...] better Assessment & Plan (10/16/2022 2:50 PM BACON DE RINDER): Continue with CPAP. Continue per Dr. Yoder [...] metoprolol Assessment & Plan (10/18/2023 4:06 PM BACON DE RINDER): Bp is stable/in acceptable range for any co-morbidities. Encouraged to limit sodium intake and exercise for weight control. Stressed importance of continued A1c control to minimize the group home effects of diabetes. Bring accuchecks to office [...] metoprolol Assessment & Plan (10/16/2022 2:49 PM BACON DE RINDER): Bp is stable/in acceptable range for any [...] lisinopril/metoprolol Assessment & Plan (01/24/2022 12:32 PM BACON DE RINDER): Bp is stable/in acceptable range for any co-morbidities. Encouraged to limit sodium intake and exercise for weight control. Continue lisinopril, metoprolol Stressed importance of continued A1c control to minimize the group home effects of diabetes. Bring accuchecks to office [...] of continued A1c control to minimize the group home effects of diabetes. Bring accuchecks to office [...] of continued A1c control to minimize the group home effects of diabetes. Bring accuchecks to office [...] of continued A1c control to minimize the group home effects of diabetes. Bring accuchecks to office [...] 20 Assessment & Plan (10/18/2023 4:06 PM BACON DE RINDER): Encouraged patient to follow low fat/low chol [...] statin Assessment & Plan (10/16/2022 2:49 PM BACON DE RINDER): Encouraged patient to follow low fat/low chol [...] lipitor Assessment & Plan (01/24/2022 12:28 PM BACON DE RINDER): Encouraged patient to follow fat/low chol diet like the Mediterranean diet. Increase good fats in the diet. Increase exercise. Monitor labs as needed. 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 Assessment & Plan (01/24/2022 12:28 PM BACON DE RINDER): History of stroke. Continue to control hypertension and ASA Gastroesophageal reflux disease without esophagi tis 01/04/2022 Assessment & Plan (03/03/2025 11:40 PM CDT): Continue with omeprazole p.r.n. Assessment & Plan (10/18/2023 4:06 PM BACON DE RINDER): Continue PPI p.r.n. Assessment & Plan (05/07/2023 10:49 AM CDT): Continue PPI p.r.n. Assessment & Plan (10/16/2022 2:50 PM BACON DE RINDER): Continue PPI p.r.n. Assessment & Plan (02/15/2022 8:50 PM CDT): Continue PPI Assessment & Plan (01/24/2022 12:31 PM BACON DE RINDER): Continue PPI Dry mouth 01/04/2022 Assessment & Plan (01/24/2022 12:31 PM BACON DE RINDER): This is a significant, separately identifiable problem [...] right now. Wants to just use the nweo-qih-ziujajw meclizine p.r.n.. If her symptoms worsen she is to follow up immediately. She is easily keeping foods and liquids down and feels like the dehydration is completely resolved. Assessment & Plan (01/24/2022 12:30 PM BACON DE RINDER): Patient has known vertigo. She uses meclizine [...] 05/14/2024 Assessment & Plan (10/18/2023 4:07 PM BACON DE RINDER): Encouraged healthy lifestyle, good nutrition and exercise. Encouraged Calcium and Vitamin D and weight bearing exercise for bone health. Reviewed immunizations. Reviewed age appropirate screenings. Medicare Wellness Documentation is completed within the chart Need for vaccination 10/18/2023 024 Assessment & Plan (10/18/2023 4:07 PM BACON DE RINDER): Flu vaccine updated in the office today BMI 33.0-33.9,adult 05/07/2023 07/24/20 24 Assessment & Plan (05/14/2024 11:01 PM CDT): Discussed the patient's BMI. The BMI is above average. BMI management plan is completed. BMI Follow-up includes: nutrition counseling, exercise counseling and education provided. Assessment & Plan (10/18/2023 4:06 PM BACON DE RINDER): Discussed the patient's BMI. The BMI is [...] and education provided. BMI 33.0-33.9,adult 03/09/2023 03/23/20 23 Assessment & Plan (03/09/2023 9:35 AM CDT): [...] 05/07/2023 Assessment & Plan (10/16/2022 2:50 PM BACON DE RINDER): Encouraged healthy lifestyle, good nutrition and exercise. Encouraged Calcium and Vitamin D and weight bearing exercise for bone health. Reviewed immunizations. Reviewed age appropirate screenings. Medicare Wellness Documentation is completed within the chart Need for immunization against influenza 09/23/2022 05/07/2023 Assessment & Plan (10/16/2022 2:51 PM BACON DE RINDER): Flu vaccine updated in the office today [...] 05/14/2024 Assessment & Plan (10/18/2023 4:06 PM BACON DE RINDER): Probably multifactorial. Check labs and followup to re-evaluate Assessment & Plan (05/07/2023 10:50 AM CDT): Probably multifactorial. Check labs and followup to re-evaluate Assessment & Plan (04/26/2022 1:13 PM CDT): Probably multifactorial. Check labs and followup to re-evaluate Assessment & Plan (01/24/2022 12:31 PM BACON DE RINDER): Probably multifactorial. Check labs and followup to re-evaluate Snoring 01/18/2022 05/18/2022 Assessment & Plan (01/24/2022 12:31 PM BACON DE RINDER): This is a significant, separately identifiable problem that was evaluated and managed on the same day as the wellness exam Patient has history of snoring and dry mouth. Her dentist has recommended a sleep study. Will refer to Dr. Yoder Assessment & Plan (01/18/2022 10:18 AM BACON DE RINDER): The patient presents with a history of snoring, daytime hypersomnia and morning dry mouth. I have recommended proceeding with a nocturnal polysomnogram with a split night protocol if necessary and no MSLT. She will follow-up with me in 3 months. Obesity (BMI 30-39.9) 01/04/20222021 Assessment & Plan (01/04/2022 2:23 PM BACON DE RINDER): Obesity is unchanged. Discussed the patient's BMI. The BMI is above average. BMI management plan is completed. BMI Follow-up includes: nutrition counseling, exercise counseling and education provided. BMI 31.0-31.9,adult 01/04/2022 02/16/20 Assessment & Plan (01/04/2022 2:24 PM BACON DE RINDER): Obesity is unchanged. Discussed the patient's BMI. The BMI is above average. BMI management plan is completed. BMI Follow-up includes: nutrition counseling, exercise counseling and education provided. Annual physical exam 01/04/2022 022 Assessment & Plan (01/24/2022 12:27 PM BACON DE RINDER): Encouraged healthy lifestyle, good nutrition and exercise. Encouraged Calcium and Vitamin D and weight bearing exercise for bone health. Reviewed immunizations Reviewed age appropirate screenings. Mass of breast 09/13/2017 05/14/2024 Immunizations Immunization Administration Dates Next Due Influenza, Quadrivalent, Hig h Dose, Preservative Free, Intrr 09/28/2023,09/23/2022 Influenza, Trivalent, Preser vative Free, Intramuscular 11/11/2015 Influenza, Unspecified 11/21/2024(Deferr ed: Patient Refused),11/21/2021(Deferred: Patient Refused),11/21/2020(Deferred: Patient Refused) Social History Tobacco Use Types Packs/Day Years [...] on file Legal Sex Female 11:57 AM BACON DE RINDER Gender Identity Not on file Sexual Orientation Not on file Last Filed Vital Signs Vital Sign Reading [...] 05/04/2025 10:51 AM CDT Plan of Treatment Not on file Procedures Procedure Name Priority Date/Time Associated Diagnosis Comments CT SOFT TISSUE NECK W CONTRAST Schedule Routine, Read Routine (OP Routine) 05/10/2025 2:50 PM CDT Thyroid nodule POCT CREATININE FOR CONTRAST EVALUATION Routine 05/10/2025 2:48 PM CDT XR FOOT LEFT 3 OR MORE VIEWS Schedule Routine, Read Routine (OP Routine) 05/07/2025 8:58 AM CDT Pain of toe of left foot HM DIABETES EYE EXAM Routine 2025 2:43 PM CDT EGFR Routine 01/01/2025 8:52 AM BACON DE RINDER Hypertension associated with diabetes (HCC) HEMOGLOBIN A1C Routine 01/01/2025 8:52 AM BACON DE RINDER Hypertension associated with diabetes (HCC) LIPID PANEL Routine 01/01/2025 8:52 AM BACON DE RINDER Hypertension associated with diabetes (HCC) ALBUMIN CREATININE RATIO, URINE Routine 01/01/2025 8:52 AM BACON DE RINDER Hypertension associated with diabetes (HCC) SCREENING MAMMOGRAM BILATERAL W BEHZAD Schedule Routine, Read Routine (OP Routine) 06/08/2024 Breast cancer screening by mammogram HM DEXA SCAN Routine 08/14/2021 HM COLONOSCOPY Routine 10/01/2020 from Last 3 Months [...] Cliff Dean D.O. AP: AP Report ID: [id number] Reading Location: [id number] Procedure Note Cliff Dean, DO - 05/22/2025 [...] Cliff Dean D.O. AP: AP Report ID: [id number] Reading Location: [id number] us Evelyne COLINDRES IMG CT PROCEDURES Final Re sult * POCT creatinine for contrast evaluation (05/10/2025 2:48 PM CDT) Creatinine POC 1.10 0.60 - 1.10 mg/dL Comment:Testing performed by : [facility], [address] [place] [address]., [id number] Blood 05/10/2025 2:48 PM CDT 05/10/2025 2:48 PM CDT Evelyne COLINDRES POINT OF CARE TEST ORDERAB LES Final Result Performing Organization Address City/State/[facility] Co de Phone Number [facility] [address] Department [place] [address] * XR Foot Left 3+ [...] unremarkable. IMPRESSION: 1. No acute fracture. 2. Usfv-mo-poumqmfz osteoarthritis as above. 3. Small plantar calcaneal spur. THIS IS AN ELECTRONICALLY VERIFIED FINAL REPORT 05/07/2025 9:02 PM - Electronically signed by Da Coronado M.D. MJ T: Report ID: [id number] Reading Location: [id number] Procedure Note Da Coronado MD - 05/07/2025 [...] unremarkable. IMPRESSION: 1. No acute fracture. 2. Pawd-fy-ircrtybi osteoarthritis as above. 3. Small plantar calcaneal spur. THIS IS AN ELECTRONICALLY VERIFIED FINAL REPORT 05/07/2025 9:02 PM - Electronically signed by Da Coronado M.D. MJ T: Report ID: [id number] Reading Location: [id number] Coty COLINDRES IMG XR PROCEDURES Final Result * DIABETES EYE EXAM (2025 2:43 PM CDT) Pathologist [facility] SCRIBED DIABETIC DILATED EYE EXAM Normal Historical Provider HEALTH MAINTENANCE Edited Result - Final * eGFR (01/01/2025 8:52 AM BACON DE RINDER) eGFR 82 >=60 mL/min/1. 73 m2 Comment: [...] last reviewed 2021. Blood 01/01/2025 8:52 AM BACON DE RINDER 01/01/2025 5:31 PM BACON DE RINDER Evelyne COLINDRES LAB BLOOD ORDERABLES Final Result Performing Organization Address [facility] Co de Phone Number [facility] [address] [facility] [place] [address] * Albumin Creatinine Ratio, Urine (01/01/2025 8:52 AM BACON DE RINDER) Albumin Ur <12.0 mg/L Comment: Interpretive Data No reference range established. Current interpretive data was last revised 2019. Creatinine Ur 45.8 mg/dL MANNIE Comment: Interpretive Data No reference range established. Current interpretive data was last revised 2019. Albumin Creatinine Ratio, Ur <26 1 - 29 mg/g MANNIE Urine 01/01/2025 8:52 AM BACON DE RINDER 01/01/2025 5:27 PM BACON DE RINDER Evelyne COLINDRES LAB URINE ORDERABLES Final Result Performing Organization Address [facility] Co de Phone Number MANNIE [address] [place] [address] * (ABNORMAL) Hemoglobin A1c (01/01/2025 8:52 AM BACON DE RINDER) Hgb A1C 6.9(H) 4.0 - 5.6 % Estimated Average Glucose 151 mg/dL MANNIE Comment: The ADA recommends reporting an estimated Average Glucose (eAG) with all Hemoglobin A1c results using the equation derived from a study of 507 normal and diabetic adults. Minority populations were underrepresented and children were not included. (Diabetes Care 31:8785-7018, 2008). The eAG is not equivalent to a fasting glucose. Blood 01/01/2025 8:52 AM BACON DE RINDER 01/01/2025 5:27 PM BACON DE RINDER Evelyne COLINDRES LAB BLOOD ORDERABLES Final Result MANNIE [place] [address] Department [place] [address] * (ABNORMAL) Lipid panel (01/01/2025 8:52 AM BACON DE RINDER) Cholesterol 230(H) 30 - 199 mg/dL Comment: [...] NCEP Expert Panel. Circulation 2004;110:227 3. Rhett Rico et al. CONSTANCE Cardiol. 2019March 21;5(5):540-548. doi: 10.1001/jamacardio.2020.0013 [...] revised on 2018. Chol/HDL ratio 7 MANNIE Blood 01/01/2025 8:52 AM BACON DE RINDER 01/01/2025 5:27 PM BACON DE RINDER Evelyne COLINDRES LAB [place]LOOD [place] [address] [address] Department [place] [address] * (ABNORMAL) Screening Mammogram Bilateral W Behzad (06/08/2024) Anatomical Region Laterality Modality Breast Bilateral Mammography 06/08/2024 Evelyne COLINDRES IMG MAMMO PROCEDURES Edite d Result - Final * DEXA SCAN (08/14/2021) Tess Ji MD HEALTH MAINTENANCE Final Result * (ABNORMAL) COLONOSCOPY (10/01/2020) Dhiraj Shukla MD HEALTH MAINTENANCE Edited Resu lt - Final from Last 3 Months or Most Recently Relevant to Health Maintenance Insurance AETNA MEDICARE GOLD AETNA MEDICARE GOLD IDPA AETNA MEDICARE GOLD IDPA Care Teams Director Of Digital Marketing Relationship Specialty Start Date End Date Evelyne Tamayo PA [address] [place] [address] PCP - General Internal Medicine 12/15/21
--- OUTSIDE RECORDS SUMMARY | 2025-06-20 09:56 | XMS_ITS | Encounter Summary ---
Author Organization [facility] Healthcare Address [address] [place] [address] Care Team Providers Care Loom Stop Checker Name Role Phone Evelyne Tamayo Primary Care Provider +1- [phone] Encounter Details Date Type Department Care Team (Late st Contact Info) Description 05/22/2025 Results Follow-Up [facility] Family Medicine [address] [place] [address] Evelyne Tamayo PA [address] [place] [address] CT Neck Soft Tissue W Contrast Social History Tobacco Use Types Packs/Day Years [...] on file Legal Sex 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 [address] [place] [address] PCP - General Internal Medicine 12/15/21 documented as of this encounter
== END 2025-06-20 09:45 | disposition home or self-care (01) ==
LOC: ANHIMG 09:48
PROVIDERS: PCP Physician Assistant; Visit Provider Surgery
DX: Z12.31 Encounter for screening mammogram for malignant neoplasm of breast (principal)
CPT/HCPCS: 77063; 77067

== ENCOUNTER 2025-10-02 01:27 | Day surgery (SDC) | payer MEDICARE, MEDICAID, SELFPAY ==
[2025-09-19 14:29] VITALS: BMI 29.4
--- OUTSIDE RECORDS SUMMARY | 2025-10-02 01:31 | XMS_ITS | Clinical Summary ---
Author Organization [facility] Address [facility] [place] [address] Care Team Providers Care Quality Process Lead Name Role Phone Evelyne Tamayo Primary Care Provider [phone] Allergies Active Allergy Reactions Criticality Noted Date Comments Erythromycin Base Nausea & Vomiting Low 06/19/2021 Imipramine Nausea only Low 06/19/2021 Penicillins Rash,Unknown Medium 09/28/2017 Pneumococcal Vaccine Nausea & Vomiting Low 06/19/20 21 Medications meclizine (ANTIVERT) 25 mg tablet Take [...] Active Additional Information Patient not taking.Reported on 09/10/2025 anastrozole (ARIMIDEX) 1 mg tablet Take 1 [...] EVERY DAY 90 tablet 2 5 Active atorvastatin (LIPITOR) 20 mg tablet TAKE 1 TABLET BY MOUTH EVERY DAY 90 tablet 4 5 Active cephalexin (KEFLEX) 500 mg capsuleIndicati ons:Strep throat Take 1 capsule (500 mg total) by mouth 2 (two) times a day for 10 days 20 capsule 5 09/04/20 25 Active Problems Problem Noted Date Diagnosed Date Allergy to pneumonia vaccine 09/09/2025 Overview (09/09/2025): Reaction to last pneumonia given in [place]. Told to never take again. Multinodular goiter 07/10/2025 Assessment & Plan (07/10/2025 9:34 AM CDT): We reviewed the ultrasound images with the patient. The left and right thyroid nodule meet the SILVIA guidelines for biopsy/fine-needle aspiration Patient is a clinically and biochemically euthyroid We discussed the procedure of fine-needle aspiration, risk and benefit, patient is willing to proceed Discussed consent with patient in details and patient consented to procedure today Discussed potential results including benign, malignant, AUS/FLUS, and suspicious I handed the patient an education brochure detailing thyroid nodule and fine- needle aspiration Discussed natural history and course of follow-up of thyroid nodules Will convey FNA results to referring provider Vitamin D deficiency 03/03/2025 Assessment & Plan (07/10/2025 9:34 AM CDT): Take Vit D Assessment & Plan (03/03/2025 11:42 PM CDT): Supplement Chronic pain of left knee 11/27/2024 Assessment & Plan (11/27/2024 1:58 PM TILE BURNER): Patient has been experiencing left knee symptoms for the last few months. Notices swelling behind the knee and thinks that that has been getting larger. On November 12 had severe knee pain while she was walking in the dining room. Keo like it was not stable and that [...] She would like to be seen in [place] Enlarged thyroid 08/05/2024 Assessment & Plan (03/03/2025 [...] PM CDT): Follows with Dr. Espinosa at [facility]. Planning a wire localized lumpectomy on 08/07 at [facility] for breast biopsy confirmed invasive ductal carcinoma clinical stage IA. Obesity (BMI 30-39.9) 03/23/2023 Assessment & Plan (09/10/2025 11:45 AM CDT): Discussed the patient's BMI. The BMI is above average. BMI management plan is completed. BMI Follow-up includes: nutrition counseling, exercise counseling and education provided. Assessment & Plan (02/25/2025 10:09 AM CDT): Discussed the patient's BMI. The BMI is above average. BMI management plan is completed. BMI Follow-up includes: nutrition counseling, exercise counseling and education provided. Assessment & Plan (11/27/2024 1:27 PM TILE BURNER): Discussed the patient's BMI. The BMI is [...] provided. Assessment & Plan (10/18/2023 4:06 PM TILE BURNER): Discussed the patient's BMI. The BMI is [...] provided. BMI 33.0-33.9,adult 09/23/2022 Assessment & Plan (09/10/2025 11:45 AM CDT): Discussed the patient's BMI. The BMI is above average. BMI management plan is completed. BMI Follow-up includes: nutrition counseling, exercise counseling and education provided. Assessment & Plan (02/25/2025 10:09 AM CDT): [...] provided Assessment & Plan (10/16/2022 2:50 PM TILE BURNER): Mammogram order provided Allergic contact dermatitis due [...] CPAP. Assessment & Plan (10/18/2023 4:06 PM TILE BURNER): Continue per Dr. Yoder. Continue with CPAP. [...] better Assessment & Plan (10/16/2022 2:50 PM TILE BURNER): Continue with CPAP. Continue per Dr. Yoder [...] metoprolol Assessment & Plan (10/18/2023 4:06 PM TILE BURNER): Bp is stable/in acceptable range for any co-morbidities. Encouraged to limit sodium intake and exercise for weight control. Stressed importance of continued A1c control to minimize the mcc effects of diabetes. Bring accuchecks to office [...] metoprolol Assessment & Plan (10/16/2022 2:49 PM TILE BURNER): Bp is stable/in acceptable range for any [...] lisinopril/metoprolol Assessment & Plan (01/24/2022 12:32 PM TILE BURNER): Bp is stable/in acceptable range for any co-morbidities. Encouraged to limit sodium intake and exercise for weight control. 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 Bring accuchecks to office when instructed to do so. Check A1c about every 3-6 months. Take medication as prescribed. Get annual eye exam. Encouraged JOSUÉ/Statin if able to tolerate. Encouraged weight control and encouraged diabetic diet and exercise. Unsure of control. Will check labs. On Metformin XR 500mg daily. Type 2 diabetes mellitus with hyperlipidemia Assessment & Plan (07/10/2025 9:35 AM CDT): Managed by PCP Assessment & Plan (03/03/2025 11:40 PM CDT): Stressed importance of continued A1c control to minimize the mcc effects of diabetes. Bring accuchecks to office [...] of continued A1c control to minimize the mcc effects of diabetes. Bring accuchecks to office [...] of continued A1c control to minimize the mcc effects of diabetes. Bring accuchecks to office [...] 20 Assessment & Plan (10/18/2023 4:06 PM TILE BURNER): Encouraged patient to follow low fat/low chol [...] statin Assessment & Plan (10/16/2022 2:49 PM TILE BURNER): Encouraged patient to follow low fat/low chol [...] lipitor Assessment & Plan (01/24/2022 12:28 PM TILE BURNER): Encouraged patient to follow fat/low chol diet like the Mediterranean diet. Increase good fats in the diet. Increase exercise. Monitor labs as needed. 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 Assessment & Plan (01/24/2022 12:28 PM TILE BURNER): History of stroke. Continue to control hypertension and ASA Gastroesophageal reflux disease without esophagi tis 01/04/2022 Assessment & Plan (03/03/2025 11:40 PM CDT): Continue with omeprazole p.r.n. Assessment & Plan (10/18/2023 4:06 PM TILE BURNER): Continue PPI p.r.n. Assessment & Plan (05/07/2023 10:49 AM CDT): Continue PPI p.r.n. Assessment & Plan (10/16/2022 2:50 PM TILE BURNER): Continue PPI p.r.n. Assessment & Plan (02/15/2022 8:50 PM CDT): Continue PPI Assessment & Plan (01/24/2022 12:31 PM TILE BURNER): Continue PPI Dry mouth 01/04/2022 Assessment & Plan (01/24/2022 12:31 PM TILE BURNER): This is a significant, separately identifiable problem [...] right now. Wants to just use the [id number] meclizine p.r.n.. If her symptoms worsen she is to follow up immediately. She is easily keeping foods and liquids down and feels like the dehydration is completely resolved. Assessment & Plan (01/24/2022 12:30 PM TILE BURNER): Patient has known vertigo. She uses meclizine p.r.n.. Will provide prescription History of COVID-19 01/04/2022 Overview (01/04/2022): 2020 Abnormal findings on diagnostic imaging of maricarmen t 08/03/2018 Resolved Problems Problem Noted Date Diagnosed Date Resolved Date Colon cancer screening 03/03/202509/15 Assessment & Plan (03/03/2025 11:42 PM CDT): Patient is due for colon cancer screening Order placed to Dr. Michael Dick at [facility] Preoperative clearance 08/05/202403/03 Assessment & Plan (08/05/2024 [...] of the surgeon base on bleeding risk. Menopause 05/14/2024 09/15/2025 Assessment & Plan (05/14/2024 11:01 PM CDT): Patient is due for DEXA Annual physical exam 05/14/2024 025 Assessment & Plan (03/03/2025 11:41 PM CDT): [...] health. Reviewed immunizations Reviewed age appropirate screenings. Medicare annual wellness visit, subsequent 10/18/2023 05/14/2024 Assessment & Plan (10/18/2023 4:07 PM TILE BURNER): Encouraged healthy lifestyle, good nutrition and exercise. Encouraged Calcium and Vitamin D and weight bearing exercise for bone health. Reviewed immunizations. Reviewed age appropirate screenings. Medicare Wellness Documentation is completed within the chart Need for vaccination 10/18/2023 024 Assessment & Plan (10/18/2023 4:07 PM TILE BURNER): Flu vaccine updated in the office today BMI 33.0-33.9,adult 05/07/2023 07/24/20 24 Assessment & Plan (05/14/2024 11:01 PM CDT): Discussed the patient's BMI. The BMI is above average. BMI management plan is completed. BMI Follow-up includes: nutrition counseling, exercise counseling and education provided. Assessment & Plan (10/18/2023 4:06 PM TILE BURNER): Discussed the patient's BMI. The BMI is [...] the laceration she is to call immediately. BMI 32.0-32.9,adult 03/23/2023 09/15/20 25 Assessment & Plan (03/03/2025 11:39 PM CDT): Weight/BMI is in healthy range. Continue healthy lifestyle to maintain. Assessment & Plan (11/27/2024 1:27 PM TILE BURNER): Discussed the patient's BMI. The BMI is [...] counseling and education provided. Obesity (BMI 30-39.9) 03/09/20232022 Assessment & Plan [...] 05/07/2023 Assessment & Plan (10/16/2022 2:50 PM TILE BURNER): Encouraged healthy lifestyle, good nutrition and exercise. Encouraged Calcium and Vitamin D and weight bearing exercise for bone health. Reviewed immunizations. Reviewed age appropirate screenings. Medicare Wellness Documentation is completed within the chart Need for immunization against influenza 09/23/2022 05/07/2023 Assessment & Plan (10/16/2022 2:51 PM TILE BURNER): Flu vaccine updated in the office today [...] 05/14/2024 Assessment & Plan (10/18/2023 4:06 PM TILE BURNER): Probably multifactorial. Check labs and followup to re-evaluate Assessment & Plan (05/07/2023 10:50 AM CDT): Probably multifactorial. Check labs and followup to re-evaluate Assessment & Plan (04/26/2022 1:13 PM CDT): Probably multifactorial. Check labs and followup to re-evaluate Assessment & Plan (01/24/2022 12:31 PM TILE BURNER): Probably multifactorial. Check labs and followup to re-evaluate Snoring 01/18/2022 05/18/2022 Assessment & Plan (01/24/2022 12:31 PM TILE BURNER): This is a significant, separately identifiable problem that was evaluated and managed on the same day as the wellness exam Patient has history of snoring and dry mouth. Her dentist has recommended a sleep study. Will refer to Dr. Yoder Assessment & Plan (01/18/2022 10:18 AM TILE BURNER): The patient presents with a history of snoring, daytime hypersomnia and morning dry mouth. I have recommended proceeding with a nocturnal polysomnogram with a split night protocol if necessary and no MSLT. She will follow-up with me in 3 months. Obesity (BMI 30-39.9) 01/04/20222021 Assessment & Plan (01/04/2022 2:23 PM TILE BURNER): Obesity is unchanged. Discussed the patient's BMI. The BMI is above average. BMI management plan is completed. BMI Follow-up includes: nutrition counseling, exercise counseling and education provided. BMI 31.0-31.9,adult 01/04/2022 02/16/20 22 Assessment & Plan (01/04/2022 2:24 PM TILE BURNER): Obesity is unchanged. Discussed the patient's BMI. The BMI is above average. BMI management plan is completed. BMI Follow-up includes: nutrition counseling, exercise counseling and education provided. Annual physical exam 01/04/2022 022 Assessment & Plan (01/24/2022 12:27 PM TILE BURNER): Encouraged healthy lifestyle, good nutrition and exercise. Encouraged Calcium and Vitamin D and weight bearing exercise for bone health. Reviewed immunizations Reviewed age appropirate screenings. Mass of breast 09/13/2017 05/14/2024 Encounters Date Type Department Care Team Description 09/30/2025 9:10 AM TILE BURNER Lab [address] [address] BMI 33.0-33.9,adult; Obesity (BMI 30-39.9); Fatigue, unspecified type; Anemia, unspecified type; Hypertension associated with diabetes (HCC) 09/10/2025 11:30 AM CDT Office Visit [facility] Family Medicine [facility] [address] [place] [phone] Evelyne Tamayo PA Medicare annual wellness visit, subsequent (Primary Dx); Chronic pain of left knee; Skin lesion; Leg cramps; Hypertension associated with diabetes (HCC); Type 2 diabetes mellitus with hyperlipidemia (HCC); Obstructive sleep apnea; Infiltrating ductal carcinoma of breast, stage 1, unspecified laterality (HCC); BMI 33.0-33.9,adult; Obesity (BMI 30-39.9); Fatigue, unspecified type; Anemia, unspecified type; Flu vaccine need; Allergy to pneumonia vaccine 08/25/2025 2:00 PM CDT Office Visit [facility] Formerly [facility] Care at [address] [address] Madai Kohli NP Strep throat (Primary Dx); Herpes zoster without complication 07/17/2025 Results Follow-Up [facility] Endocrinology Metabolism and Lipid [address] [place] [phone] Micah Pierson MD Cytology 07/10/2025 8:55 AM CDT Ancillary Procedure [facility] Endocrinology Metabolism and Lipid [address] [place] [address] Multinodular goiter 07/10/2025 8:54 AM CDT - 07/10/2025 11:59 PM CDT Hospital Encounter [facility] [address] [address] Discharge Disposition: Discharge to home or self care 07/10/2025 8:40 AM CDT Procedure visit [facility] Medicine Endocrinology Metabolism and Lipid [address] [place] [phone] Micah Pierson MD Multinodular goiter (Primary Dx); Type 2 diabetes mellitus with hyperlipidemia (HCC); Vitamin D deficiency 07/10/2025 Orders Only [facility] [address] [address] Micah Pierson MD Multinodular goiter from Last 3 Months Immunizations Immunization Administration Dates Next Due Influenza, Quadrivalent, Hig h Dose, Preservative Free, Intrr 09/28/2023,09/23/2022 Influenza, Trivalent, IM (MDV) 0,10/21/2016,11/12/2015,11/11,08/15/2014,09/28/2013,08/25/2012 ,10/06/2006 Influenza, Trivalent, Preser vative Free, Intramuscular 11/11/2015 Influenza, Unspecified 09/04/2025,2024(Deferred: Patient Refused),11/21/2021(Deferred: Patient Refused),11/21/2020(Deferred: Patient Refused) Td, Not Adsorbed 05/09/2009 Surgical History Surgery Date Site/Laterality Comments HYSTERECTOMY 11/21/1987 - 11/20/1988 MASTECTOMY 07/22/2024 - 08/20/2024 Left BLADDER SURGERY 1951 Medical History Medical History Date Comments Hypertension Stroke (HCC) 1999 GERD (gastroesophageal reflux disease) Diabetes mellitus Cancer (HCC) Cataract 5 yrs ago Rheumatic fever 65 years ago Osteoporosis 2020 Asthma 67 years ago Family History Medical History Relation Name Comments Cancer Father Father Lung cancer Father Father Family history of lung cancer - (Added by TW Conv) Arthritis Mother Mother Congenital heart disease Mother Mother Heart disease Mother Mother Relation Name Status Comments Father Father Mother Mother Social History Tobacco Use Types Packs/Day Years Used Date Smoking Tobacco: Never Smokeless Tobacco: Never Tobacco Cessation:Counseling Given: Not Answered Alcohol Use Standard Drinks/Week Comments Never 0 (1 standard drink = 0.6 oz pur e alcohol) PHQ-2 Answer Date Recorded PHQ-2 Total Score (If total score is 3 or more points, staff should administer the PHQ-9) 0 09/10/2025 AUDIT-C Answer Date Recorded Q1: How often do you have a drink containing alcohol? Never 09/10/2025 Q2: How many drinks containi ng alcohol do you have on a typical day when you are drinking? Patient does not drink Q3: How often do you have si x or more drinks on one occasion? Never 09/10/2025 Comments No Sex and Gender Information Value Date Recorded Sex Assigned at Not on file Legal Sex Female 11:57 AM TILE BURNER Gender Identity Not on file Sexual Orientation Not on file Last Filed Vital Signs Vital Sign Reading Time Taken Comments Blood Pressure 134/72 09/10/2025 11:32 AM CDT Pulse 68 09/10/2025 11:32 AM CDT Temperature 36.7 C (98 F) 09/10/2025 11:32 AM CDT Respiratory Rate 24 08/25/2025 1:48 PM CDT Oxygen Saturation 96% 09/10/2025 11:32 AM CDT Inhaled Oxygen Concentration - - Weight 92.5 kg (204 lb) 09/10/2025 11:32 AM CDT Height 165.1 cm (5' 5) 09/10/2025 11:32 AM CDT Body Mass Index 33.95 09/10/2025 11:32 AM CDT Plan of Treatment Health Maintenance Due Date Last Done Comments Hepatitis C Screening 1945 Foot Exam 1945 Hepatitis B Screening 1965 Zoster Vaccine (1 of 2) 1966 DTaP/Tdap/Td Vaccine (1 - Tdap) 05/10/2009 9 Covid-19 Vaccine (3 - Pfizer risk series) 03/20/2021 02/20/2021, 01/30/2021 Colon Cancer Screening-FIT 10/01/2021 10/01/2020 Colon Cancer Screening-FOBT 10/01/2021 10/01/2020 Colon Cancer Screening-DNA Stool 10/01/2023 10/01/20 Colon Cancer Screening-CT Colonography 10/01/2025 10/01/2020 Colon Cancer Screening-Colonoscopy 10/01/2025 10/01/2020 Colon Cancer Screening-Sigmoidoscopy 10/01/2025 10/01/2020 Colorectal Cancer Screening 10/01/2025 Albumin Creatinine Ratio, Urine 01/01/2026 01/01/2025, 05/08/2024, 09/19/2023 Lipid Panel 01/01/2026 01/01/2025, 04/21, 09/19/2023, Additional history exists Dilated Eye Exam 2026 2025, 03/2024, 06/25/2024, Additional history exists Hemoglobin A1C 03/30/2026 09/30/2025, 12/22, 05/08/2024, Additional history exists Breast Cancer Screening-Mammogram 06/20/2026 06/20/2025, 06/08/2024, 06/08/2024, Additional history exists Osteoporosis Screening-Bone Density Scan 08/02/2026 08/02/2024, 08/02/2024, 08/14/2021 Depression Screening 09/10/2026 09/10/2025, 02/25/2025, 11/27/2024, Additional history exists Fall Risk Assessment 09/10/2026 09/10/2025, 02/25/2025, 11/27/2024, Additional history exists Well Visit 65+ 09/10/2026 09/10/2025, 04/0 05/2025, 05/14/2024, Additional history exists eGFR 09/30/2026 09/30/2025, 12/22, 05/08/2024, Additional history exists Influenza Vaccine Completed 09/04/2025, , 09/23/2022, Additional history exists Pneumococcal vaccine 65+ Discontinued Procedures Procedure Name Priority Date/Time Associated Diagnosis Comments EGFR Routine 09/30/2025 9:15 AM TILE BURNER Hypertension associated with diabetes (HCC) COMPREHENSIVE METABOLIC PANEL Routine 09/30/2025 9:15 AM TILE BURNER Hypertension associated with diabetes (HCC) HEMOGLOBIN A1C Routine 09/30/2025 9:15 AM TILE BURNER Hypertension associated with diabetes (HCC) IRON PROFILE W/ IBC Routine 09/30/2025 9 :15 AM TILE BURNER Anemia, unspecified type FERRITIN Routine 09/30/2025 9:15 AM TILE BURNER Anemia, unspecified type TSH Routine 09/30/2025 9:15 AM TILE BURNER Fatigue, unspecified type VITAMIN B12 Routine 09/30/2025 9:15 AM TILE BURNER Fatigue, unspecified type VITAMIN D 25 HYDROXY Routine 09/30/2025 9:15 AM TILE BURNER BMI 33.0-33.9,adult Obesity (BMI 30-39.9) POC INFLUENZA A/B, COVID-19 ANTIGEN Routine 08/25/2025 2:19 PM CDT Strep throat POCT RAPID STREP Routine 08/25/2025 1:59 PM CDT Strep throat POCUS FINE NEEDLE ASP BIOPSY Schedule Routine, Read Routine (OP Routine) 07/10/2025 8:54 AM CDT Multinodular goiter CYTOLOGY Routine 07/10/2025 12:00 AM CDT Multinodular goiter HM MAMMOGRAPHY Routine 06/20/2025 5:07 PM CDT DIABETES EYE EXAM Routine 2025 2:43 PM CDT LIPID PANEL Routine 01/01/2025 8:52 AM TILE BURNER Hypertension associated with diabetes (HCC) ALBUMIN CREATININE RATIO, URINE Routine 01/01/2025 8:52 AM TILE BURNER Hypertension associated with diabetes (HCC) HM DEXA SCAN Routine 08/14/2021 HM COLONOSCOPY Routine 10/01/2020 from Last 3 Months or Most Recently Relevant to Health Maintenance Results * eGFR (09/30/2025 9:15 AM TILE BURNER) eGFR 87 >=60 mL/min/1. 73 m2 Comment: Interpretive Data [...] interpretive data was last reviewed 2021. Blood 09/30/2025 9:15 AM TILE BURNER 09/30/2025 10:40 AM TILE BURNER Evelyne COLINDRES LAB BLOOD ORDERABLES Final Result Performing Organization Address City/[facility] Co de Phone Number [address] [place] [address] * Iron profile w/ IBC (09/30/2025 9:15 AM TILE BURNER) [facility] Iron 93 35 - 145 mcg/dL TIBC 357 250 - 400 mcg/dL [facility] Transferrin saturation 26 20 - 50 % [facility] Blood 09/30/2025 9:15 AM TILE BURNER 09/30/2025 10:40 AM TILE BURNER Evelyne COLINDRES LAB BLOOD ORDERABLES Final Result Performing Organization Address [facility] de Phone Number [address] [address] * Vitamin D 25 hydroxy (09/30/2025 9:15 AM TILE BURNER) Pathologist [facility] Vitamin D 25-OH 47.0 30.0 - 80.0 ng/mL Blood 09/30/2025 9:15 AM TILE BURNER 09/30/2025 10:40 AM TILE BURNER Evelyne COLNIDRES LAB BLOOD ORDERABLES Final Result Performing Organization Address [facility] Co de Phone Number [address] [address] * TSH (09/30/2025 9:15 AM TILE BURNER) Pathologist [facility] Thyroid Stimulating Hormone 0.46 0.30 - 4.20 mcIUnit/mL Blood 09/30/2025 9:15 AM TILE BURNER 09/30/2025 10:40 AM TILE BURNER Evelyne COLINDRES LAB BLOOD ORDERABLES Final Result Performing Organization Address [facility] de Phone Number MANNIE [address] [address] * (ABNORMAL) Hemoglobin A1c (09/30/2025 9:15 AM TILE BURNER) [facility] Hgb A1C 8.0(H) 4.0 - 5.6 % Estimated Average Glucose 183 mg/dL [facility] Comment: The ADA recommends reporting an estimated Average Glucose (eAG) with all Hemoglobin A1c results using the equation derived from a study of 507 normal and diabetic adults. Minority populations were underrepresented and children were not included. (Diabetes Care 31:5918-6169, 2008). The eAG is not equivalent to a fasting glucose. Blood 09/30/2025 9:15 AM TILE BURNER 09/30/2025 10:40 AM TILE BURNER Evelyne COLINDRES LAB BLOOD ORDERABLES Final Result Performing Organization Address [place]/[facility] Co de Phone Number [address] [place] [address] * Ferritin (09/30/2025 9:15 AM TILE BURNER) [facility] Ferritin 32 13 - 150 ng/mL Blood 09/30/2025 9:15 AM TILE BURNER 09/30/2025 10:40 AM TILE BURNER Evelyne COLINDRES LAB BLOOD ORDERABLES Final Result Performing Organization Address [place]/[facility] Co de Phone Number [address] [address] * Vitamin B12 (09/30/2025 9:15 AM TILE BURNER) [facility] Vitamin B12 537 230 - 1,250 pg/mL Blood 09/30/2025 9:15 AM TILE BURNER 09/30/2025 10:40 AM TILE BURNER Evelyne COLINDRES LAB BLOOD ORDERABLES Final Result MANNIE [address] [facility] Department [place] [address] * (ABNORMAL) Comprehensive metabolic panel (09/30/2025 9:15 AM TILE BURNER) Pathologist [facility] Sodium 142 135 - 145 mmol/L Potassium, pl 4.6 3.3 - 4.9 mmol/L [facility] Chloride 103 97 - 110 mmol/L [facility] CO2 28 22 - 32 mmol/L [facility] Anion gap 11 2 - 15 mmol/L [facility] BUN 19 6 - 25 mg/dL [facility] Creatinine 0.71 0.60 - 1.10 mg/dL [facility] Glucose 158 70 - 199 mg/dL [facility] Comment: Interpretive Data Fasting glucose >/= 126 mg/dl is diagnostic for diabetes. Fasting is defined as no caloric intake for at least 8 hours. Fasting glucose between 100 mg/dl to 125 mg/dl is diagnostic of prediabetes. In a patient with classic symptoms of hyperglycemia or hyperglycemic crisis, a random glucose >/= 200 mg/dl is diagnostic for diabetes. In the absence of unequivocal hyperglycemia, results should be confirmed by repeat testing. The classification and Diagnosis of Diabetes Diabetes Care 2021; 46: S19-S40. Current interpretive data was last revised 2022. Calcium 10.6(H) 8.5 - 10.3 mg/dL [facility] Bilirubin, total 0.4 0.1 - 1.2 mg/dL [facility] Protein, pl 7.6 6.5 - 8.5 g/dL [facility] Albumin 4.0 3.5 - 5.0 g/dL [facility] Alk phos 125 40 - 130 Units/L [facility] ALT 22 7 - 45 Units/L [facility] AST 25 10 - 45 Units/L [facility] Blood 09/30/2025 9:15 AM TILE BURNER 09/30/2025 10:40 AM TILE BURNER Evelyne COLINDRES LAB BLOOD ORDERABLES Final Result Performing Organization Address City/[facility]/ZIP Co de Phone Number MANNIE [address] [facility] Department [place] [address] * POC Influenza A/B, COVID-19 antigen (08/25/2025 2:19 PM CDT) Influenza A Ag, POC Negative Negative [facility] Influenza B Ag, POC Negative Negative [facility] COVID-19 Ag POC Presumptive Negative Presumptive Negative, Invalid [facility] Swab 08/25/2025 2:19 PM CDT Madai Kohli NP POINT OF CARE TEST ORDERABLES Final Result Performing Organization Address [facility] de Phone Number [facility] EDW [address] [place] [address] * (ABNORMAL) POCT rapid strep A (08/25/2025 1:59 PM CDT) Rapid Strep A, POC Positive(A ) Negative Swab 08/25/2025 1:59 PM CDT Madai Kohli [employer] POINT OF CARE TEST ORDERABLES Final Result * POCUS FINE NEEDLE ASP BIOPSY (07/10/2025 8:54 AM CDT) Narrative [facility]ACS[facility]US[facility] - 07/10/2025 8:54 AM CDT This procedure was performed and interpreted by the provider. Please refer to the provider's procedure/OR operative note for results. Micah Pierson MD POCUS ORDERABLES Final Result Performing Organization Address City/[facility]/ZIP Co de Phone Number [email or web address] * Cytology (07/10/2025 12:00 AM CDT) Fine needle aspirate (Thyroid) 07/10/2025 07/10/2025 2:37 PM CDT Narrative PATHOLOGY [facility] - 07/11/2025 3:24 PM CDT EPIC results best viewed via link to PDF [facility] [place] [address] Note to Patients: This report may contain a detailed description of human tissue sent by a health care provider to the laboratory for pathologic evaluation. The content of this report is essential for diagnosis and may provide important critical findings. This information may be unfamiliar to patients to review without a medical professional present. It is advised that the patient review this report in the presence of a health care provider who can answer questions and explain the details. CYTOPATHOLOGY REPORT FINAL Patient Name: MARI LEONE Gender: F : 1945 (Age: 80) Address: [address] [place] [address] [place], [place] [id number] Hospital #: [id number] Taken:07/10/2025 Received:07/10/2025 Reported: 07/11/2025 Patient Type: [facility] SPECIMEN Service: UNKNOWN Location: Physician(s): Micah Pierson M.D. FINAL DIAGNOSIS A. Thyroid, left lobe nodule, ultrasound-guided fine needle aspiration: - Benign B. Thyroid, right lobe nodule, ultrasound-guided fine needle aspiration: - Benign lns/07/11/2025 12:00 By this signature, I attest that the above diagnosis is based upon my personal examination of the slides(and/or other material indicated in the diagnosis). Shan Hanson M.D. Report Electronically Reviewed and Signed Out By Shan Hanson M.D. 07/11/2025 15:24:11 FABI Rosales([facility]) Gross Description A. Thyroid, left lobe nodule, ultrasound guided fine needle aspiration: 2 Pap stained smear(s) and 2 Diff-Quik stained smear(s). 1 ThinPrep prepared from needle rinse tube. Material for Thyroseq was collected, and testing will be performed, if indicated. Aspirated by clinician. (rm) B. Thyroid, right lobe nodule, ultrasound guided fine needle aspiration: 2 Pap stained smear(s) and 2 Diff-Quik stained smear(s). 1 ThinPrep prepared from needle rinse tube. Material for Thyroseq was collected, and testing will be performed, if indicated. Aspirated by clinician. (rm) Clinical Diagnosis and History thyroid nodules REPORT IMAGES AND SCANNED DOCUMENTS, IF INCLUDED, ONLY VIEWABLE IN PDF VERSION OF REPORT The performance characteristics of some immunohistochemical stains, in-situ hybridization and fluorescence in-situ hybridization tests and immunophenotyping by flow cytometry cited in this report (if any) were determined by the Surgical Pathology and Flow Cytometry Departments at [facility] as part of an ongoing quality process lead program and in compliance with federally mandated regulations drawn from the Clinical Laboratory Improvement Act of 1988 (CLIA '88). Some of these tests rely on the use of analyte specific reagents and are subject to specific labeling requirements by the US Food and Drug Administration. Such diagnostic tests may only be performed in a facility that is certified by the Department of Health and Human Services as a high complexity laboratory under CLIA '88. The FDA has determined that such clearance or approval is not necessary. This test is used for clinical purposes. It should not be regarded as investigational or for research. Nevertheless, federal rules concerning the medical use of analyte specific reagents require that the following disclaimer be attached to the report: This test was developed and its performance characteristics determined by the Surgical Pathology and Flow Cytometry Departments of [facility]. It has not been cleared or approved by the U. S. Food and Drug Administration. Micah Pierson MD LAB CYTOLOGY ORDERABLES Final R esult PATHOLOGY [facility] 3rd Floor [place], [place] [phone] * MAMMOGRAPHY (06/20/2025 5:07 PM CDT) Mammography Normal Impressions Larissa Rodriguez MA - 06/20/2025 5:07 PM CDT There is no mammographic evidence of malignancy. A 1 year screening mammogram is recommended. Bi-Rads Category 1: Negative [facility] Provider [facility] Edited Result - Final * DIABETES EYE EXAM (2025 2:43 PM CDT) SCRIBED DIABETIC DILATED EYE EXAM Normal Historical Provider HEALTH MAINTENANCE Edited Result - Final * Albumin Creatinine Ratio, Urine (01/01/2025 8:52 AM TILE BURNER) Albumin Ur <12.0 mg/L Comment: Interpretive Data No reference range established. Current interpretive data was last revised 2019. Creatinine Ur 45.8 mg/dL MANNIE Comment: Interpretive Data No reference range established. Current interpretive data was last revised 2019. Albumin Creatinine Ratio, Ur <26 1 - 29 mg/g MANNIE Urine 01/01/2025 8:52 AM TILE BURNER 01/01/2025 5:27 PM TILE BURNER Evelyne COLINDRES LAB URINE ORDERABLES Final Result MANNIE [address] Department [place] [address] * (ABNORMAL) Lipid panel (01/01/2025 8:52 AM TILE BURNER) Cholesterol 230(H) 30 - 199 mg/dL Comment: [...] on 2018. HDL 35(L) >=40 mg/dL MANNIE Comment: Interpretive Data Ages < or = [...] 2018. LDL, calculated 137(H) <=129 mg/dL MANNIE Comment: Interpretive Data Ages < or = [...] 2004;110:227 3. Rhett Alcocer al. CONSTANCE Cardiol. 2020 March 21;5(5):540-548. doi: 10.1001/[email or web address].2020.0013 Current Interpretive Data was last revised on 2024. Non-HDL Cholesterol 195 mg/dL MANNIE Comment: Interpretive Data Ages < or = [...] revised on 2018. Chol/HDL ratio 7 MANNIE JUNIOR Blood 01/01/2025 8:52 AM TILE BURNER 01/01/2025 5:27 PM TILE BURNER Evelyne COLINDRES LAB BLOOD ORDERABLES Final Result MANNIE [place] [address] Department [place] [address] * DEXA SCAN (08/14/2021) Tess Provider HEALTH MAINTENANCE Final Result * (ABNORMAL) COLONOSCOPY (10/01/2020) Dhiraj Shukla MD HEALTH MAINTENANCE Edited Resu lt - Final from Last 3 Months or Most Recently Relevant to Health Maintenance Insurance [facility] MEDICARE [facility] IDPA AETNA MEDICARE GOLD [facility] MEDICARE [facility] IDPA Care Teams Quality Process Lead Relationship Specialty Start Date End Date Evelyne Tamayo PA [address] [place] [address] PCP - General Internal Medicine 12/15/21
--- OUTSIDE RECORDS SUMMARY | 2025-10-02 01:31 | XMS_ITS | Clinical Summary ---
Author Organization [facility] Address [address], [address] [place] [address] Phone Care Team Providers Care Dude Wrangler Name Role Phone Evelyne Tamayo PAC Primary Care Provider [phone] Da Espinosa MD Unavailable [phone] Sheryl Carroll MD Unavailable Allergies Active Allergy Reactions Criticality Noted Date Comments Erythromycin Nausea,Vomiting Low 06/19/2021 Imipramine Nausea Low 06/19/2021 Penicillins Rash Medium 09/28/2017 Pneumococcal Vaccine Vomiting,Nausea Low 06/19/2021 Medications metFORMIN (GLUCOPHAGE-XR) 500 MG TABLET SR [...] Take 5,000 Units by mouth. 03/14/2024 Active calcium 600 MG Tablet Take 600 mg by mouth daily. Active Magnesium ([facility] Triple Magnesium Complex) 400 MG Capsule Take by mouth. Active anastrozole (ARIMIDEX) 1 MG TabletIndicatio ns:Hormone Receptor Positive Breast Cancer Take 1 Tablet by mouth daily Indications: Hormone Receptor Positive Breast Cancer 90 Tablet 1 08/01/2025 Active Active Problems Problem Noted Date Diagnosed Date HTN (hypertension) 09/13/2024 Encounters Date Type Department Care Team Description 08/01/2025 1:30 PM CDT Office Visit [facility] [address] [phone] Lia Loredo, SEAFOOD PROCESSOR, DRAFTING SUPERVISOR Malignant neoplasm of lower-outer quadrant of left breast of female, estrogen receptor positive (HCC) (Primary Dx); Use of aromatase inhibitors; Chronic fatigue; Vitamin D deficiency 08/01/2025 1:15 PM CDT Lab [facility] [address] [phone] Lab, Cc [place] Malignant neoplasm of lower-outer quadrant of left breast of female, estrogen receptor positive (HCC); Use of aromatase inhibitors 08/01/2025 Travel from Last 3 Months Family History [...] Sign Reading Time Taken Comments Blood Pressure 136/78 08/01/2025 1:22 PM CDT Pulse 83 08/01/2025 1:22 PM CDT Temperature 37.3 C (99.1 F) 08/01/2025 1:22 PM CDT Respiratory Rate 18 08/01/2025 1:22 PM CDT Oxygen Saturation 96% 08/01/2025 1:22 PM CDT Inhaled Oxygen Concentration - - Weight 93.7 kg (206 lb 9.6 oz) 08/01/2025 1:22 P M CDT Height 162.6 cm (5' 4) 08/01/2025 1:22 PM CDT Body Mass Index 35.46 08/01/2025 1:22 PM CDT Plan of Treatment Upcoming Encounters Date Type Department Care Team (Late st Contact Info) Description 10/31/2025 1:15 PM CHUCKING MACHINE SET UP OPERATOR TOOL Lab [facility] [address] [phone] Lab, Cc [facility] 10/31/2025 1:30 PM CHUCKING MACHINE SET UP OPERATOR TOOL Office Visit [facility] [address] [phone] Sheryl Carroll MD [address] [place] [address] Health Maintenance Due Date Last Done Comments Hepatitis C Virus (HCV) Screening 1945 TdaP Immunization 1945 Pneumococcal Immunization (50+ years) (1 of 2 - PCV) 1966 Zoster Immunization (1 of 2) 1966 SARS-COV-2 Immunization (3 - Pfizer risk series) 03/20/2021 02/20/2021, 01/30/2021 Respiratory Syncytial Virus (RSV) Immunization (Adult) (1 - 1-dose 75+ series) 2022 Medicare Initial AWV [id number] 11/21/2022 Influenza Immunization (#1) 2025 11/0 06/2023, 09/23/2022, 08/18/2020, Additional history exists DEXA Bone Density 08/02/2026 08/02/2024 Hepatitis B Immunization Aged Out No longer eligible based on patient's age to complete this topic Human Papillomavirus (HPV) Immunization Aged Out No longer eligible based on patient's age to complete this topic Meningococcal Immunization (ACWY) Aged Out No longer eligible based on patient's age to complete this topic Rotavirus Immunization Aged Out No lo nger eligible based on patient's age to complete this topic Procedures Procedure Name Priority Date/Time Associated Diagnosis Comments COMPLETE BLOOD COUNT (CBC) WITH DIFF Routine 08/01/2025 1:09 PM CDT Malignant neoplasm of lower-outer quadrant of left breast of female, estrogen receptor positive (HCC) Use of aromatase inhibitors CMP (COMPREHENSIVE METABOLIC PANEL) Routine 08/01/2025 1:09 PM CDT Malignant neoplasm of lower-outer quadrant of left breast of female, estrogen receptor positive (HCC) Use of aromatase inhibitors EARNESTINE BONE DENSITOMETRY AXIAL SKELETON Routine 08/02/2024 1:32 PM CDT Post-menopausal from Last 3 Months or Most Recently Relevant to Health Maintenance Results * (ABNORMAL) CMP (COMPREHENSIVE METABOLIC PANEL) (08/01/2025 1:09 PM CDT) Glucose 190(H) 70 - 105 mg/dL [facility] Blood Urea Nitrogen 21 7 - 25 mg/dL [facility] Creatinine 0.8 0.6 - 1.2 mg/dL [facility] Sodium 134(L) 136 - 145 mEq/L [facility] Potassium 4.4 3.5 - 5.1 mEq/L [facility] Chloride 99 98 - 107 mEq/L [facility] Bicarbonate 23 21 - 31 mEq/L [facility] Total Bilirubin 0.4 0.3 - 1.0 mg/dL [facility] Alk. Phosphatase 102 34 - 104 U/L [facility] Aspartate Aminotransferase 25 13 - 39 U/L [facility] Alanine Aminotransferase 21 7 - 52 U/L [facility] Total Protein 6.8 6.4 - 8.9 g/dL [facility] Albumin 3.8 3.5 - 5.7 g/dL [facility] Calcium 10.0 8.6 - 10.3 mg/dL [facility] Anion Gap 16.4(H) 7.0 - 15.0 mEq/L [facility] Globulin 3.0 2.0 - 3.5 g/dL [facility] EGFR 75 >60 ml/min/1. 73m2 [facility] Comment: This eGFR is calculated using 2020 CKD-EPI Creatinine equation without race modifier based on the NKF-ASN task force recommendations Equation: hXYW=230*min(SCr/k,1)a*max(SCr/k,1)-1.200*0.9938Age*1.012 (if female), where SCr is serum creatinine, k is 0.7 for females and 0.9 for males, and a is -0.241 for females and -0.302 for males Blood 08/01/2025 1:09 PM CDT Narrative [facility] - 08/01/2025 1:45 PM CDT Release to patient->Immediate IS THE PATIENT REQUIRED TO BE FASTING FOR 8 HOURS?->No us Lia Loredo SEAFOOD PROCESSOR, DRAFTING SUPERVISOR CHEMISTRY ORDERABLES Final Result [facility] [place] [address], * (ABNORMAL) COMPLETE BLOOD COUNT (CBC) WITH DIFF (08/01/2025 1:09 PM CDT) WBC 11.4(H) 4.0 - 10.0 10*3/uL [facility] HGB 12.0 11.2 - 15.7 g/dL [facility] HCT 38.3 34.1 - 44.9 % [facility] PLT 200 163 - 369 10*3/uL [facility] MPV 11.9 9.4 - 12.4 fL [facility] RBC 4.21 3.93 - 5.22 10*6/uL [facility] MCV 91 79 - 95 fL [facility] MCH 28.5 25.6 - 32.2 pg [facility] MCHC 31.3(L) 32.2 - 36.5 g/dL [facility] RDW 13.1 11.6 - 14.4 % [facility] Absolute Neutrophil Count 9,665 cells/uL [facility] Absolute Seg Count 9,665(H) 1,440 - 6,600 cells/uL [facility] Absolute Lymph Count 455(L) 760 - 4,000 cells/uL [facility] Absolute [place] Count 682 160 - 1,200 cells/uL [facility] Absolute Eos Count 341(H) 0 - 300 cells/uL [facility] Absolute Baso Count 227(H) 0 - 100 cells/uL [facility] Segmented Neutrophils 85(H) 36 - 66 % [facility] Lymphocytes 4(L) 19 - 40 % [facility] Monocytes 6 4 - 12 % [facility] Eosinophils 3 0 - 3 % [facility] Basophils 2(H) 0 - 1 % [facility] WBC Estimate High [facility] Platelet Estimate Normal [facility] RBC Morphology Normal [facility] Blood 08/01/2025 1:09 PM CDT Narrative [facility] - 08/01/2025 3:23 PM CDT Release to patient->Immediate Lia Loredo APRN, DRAFTING SUPERVISOR HEMATOLOGY ORDERABLES Final Result [facility] [address] [place] [address], * [facility] BONE DENSITOMETRY AXIAL SKELETON (08/02/2024 1:32 PM CDT) Anatomical Region Laterality Modality BODY N/A Other Narrative 08/02/2024 3:25 PM CDT EXAMINATION: [facility] BONE DENSITOMETRY AXIAL SKELETON 08/02/2024 INDICATIONS: [...] Note Bárbara Yoon MD - 08/02/2024 EXAMINATION: [facility] BONE DENSITOMETRY AXIAL SKELETON 08/02/2024 INDICATIONS: [...] Relevant to Health Maintenance [facility] [place] Care Teams Dude Wrangler Relationship Specialty Start Date End Date Evelyne Tamayo PAC [address] [place] [address] [address] [place] [address] PCP - General Physician Tinner Automatic 07/16/24 Da Espinosa MD [address] [place] [id number] General Surgery 07/16/24 Sheryl Carroll MD [address] [place] [address] Consulting Physician Oncology 07/16/24
[2025-10-02 09:21] VITALS: BP 184/88; PULSE 93; RESP 18; TEMP 36.3; O2SAT 97
--- NOTE | 2025-10-02 09:27 | WPDANESEPPF ---
Anes - Initial Pre Proc Eval Procedure: Operation Date: 10/02/25 10:30 Proposed Procedures p Screening Colonoscopy - Brendan Lainez MD Date/Time: 10/02/25 09:27 Surgeon: Brendan Lainez MD Pre Op Diagnosis: Family history of colon polyps, unspecified Patient Data Age: 80 Gender: F Height: 1.75 m Weight: 91 kg Last Vital Signs Temp 36.3 C L 10/02/25 09:21 Pulse 93 10/02/25 09:21 Resp 18 10/02/25 09:21 BP 184/88 H 10/02/25 09:21 Pulse Ox 97 10/02/25 09:21 O2 Del Method Room Air 10/02/25 09:21 Allergies Allergy/AdvReac Type Severity Reaction Status Date / Time erythromycin base Allergy Mild Nausea Verified 10/02/25 09:18 imipramine Allergy Mild Nausea Verified 10/02/25 09:18 Penicillins Allergy Mild Unknown Verified 10/02/25 09:18 pneumococcal vaccine Allergy Mild Nausea and Verified 10/02/25 09:18 (Pneumovax 23) Vomiting Home Medications ?Medication ?Instructions ?Recorded ?Confirmed ?Type aspirin 81 mg tablet,delayed 81 mg PO DAILY 10/03/19 09/19/25 History release (Adult Aspirin Regimen) metoprolol tartrate 50 mg tablet See Rx Instructions .Route 02/23/21 09/19/25 Rx .COMPLEX #180 tabs omeprazole 20 mg capsule,delayed 20 mg PO DAILY #90 caps 03/20/21 09/19/25 Rx release atorvastatin 10 mg tablet See Rx Instructions .Route 05/18/21 09/19/25 Rx .COMPLEX #90 tabs metformin 500 mg tablet,extended See Rx Instructions .Route 05/21/21 09/19/25 Rx release 24 hr .COMPLEX #90 tabs lisinopril 2.5 mg tablet 2.5 mg PO DAILY #90 tabs 09/07/21 09/19/25 Rx loratadine 10 mg tablet (Claritin) 10 mg PO DAILY PRN Allergy Symptoms 04/21/22 09/19/25 History meclizine 25 mg tablet 25 mg PO BID PRN dizziness #20 tabs 04/22/22 09/19/25 Rx anastrozole 1 mg tablet 1 mg PO DAILY 09/19/25 09/19/25 History Patient hx anesthesia problems: none Family hx anesthesia problems: none Results Review: All pre-operative results and documents have been reviewed as part of the pre-operative evaluation. 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 Sibling No chronic problems Grandparent , in childbirth No chronic problems Grandparent Myocardial infarction Grandparent No chronic problems Grandparent , at 96 No chronic problems Other Family history of cardiovascular disease Hypertension Social History Social History Smoking status: Never smoker Alcohol intake: never Substance use: never Substance use type: does not use Living arrangements: [facility] Additional living arrangements comments: lives at [place] Gender identity (if verbalized by the patient): Female Sexual Orientation (if Verbalized by the Patient): Straight or Heterosexual Spiritual care concerns: No Anes - Eval Final PreProcedure Day of Procedure 10/02/25 09:27 Patient weight: overweight Heart: regular rate and rhythm Lungs: clear to auscultation Airway: Mallampati scale class II Neurological: alert and oriented Last oral intake: >/= 8 hours ASA classification: III Emergent: no Anesthetic plan: proceed Anesthesia type and monitoring: general GIVS and standard monitoring Results Review: All pre-operative results and documents have been reviewed as part of the pre-operative evaluation. Informed Consent: The patient's anesthetic plan and its attendant risks and benefits were discussed with the patient/family/POA. Questions were solicited and answers provided to the satisfaction of the patient/family/POA.
[2025-10-02] MEDS: LACTATED RINGERS 1,000 ML 150 ML IV CONT (09:37)
--- NOTE | 2025-10-02 10:08 | P.HP_ITS ---
H&P: HPI History of Present Illness Date/Time: 10/02/25 10:08 Chief Complaint: History of colon polyps Narrative: The patient has a history of colonic polyps, the last colonoscopy was approximately 5 years ago. 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 Sibling No chronic problems Grandparent , in childbirth No chronic problems Grandparent Myocardial infarction Grandparent No chronic problems Grandparent , at 96 No chronic problems Other Family history of cardiovascular disease Hypertension Social History Social History Smoking status: Never smoker Alcohol intake: never Substance use: never Substance use type: does not use Living arrangements: [facility] Additional living arrangements comments: lives at [place] Gender identity (if verbalized by the patient): Female Sexual Orientation (if Verbalized by the Patient): Straight or Heterosexual Spiritual care concerns: No Meds Home Medications and Allergies Home Medications ?Medication ?Instructions ?Recorded ?Confirmed ?Type aspirin 81 mg tablet,delayed 81 mg PO DAILY 10/03/19 1 History release (Adult Aspirin Regimen) metoprolol tartrate 50 mg tablet See Rx Instructions . Route 02/23/21 09/19/25 Rx .COMPLEX #180 tabs omeprazole 20 mg capsule,delayed 20 mg PO DAILY #90 ca ps 03/20/21 09/19/25 Rx release atorvastatin 10 mg tablet See Rx Instructions .Route 0 05/18/21 09/19/25 Rx .COMPLEX #90 tabs metformin 500 mg tablet,extended See Rx Instructions . Route 05/21/21 09/19/25 Rx release 24 hr .COMPLEX #90 tabs lisinopril 2.5 mg tablet 2.5 mg PO DAILY #90 tabs 09/19/25 Rx loratadine 10 mg tablet (Claritin) 10 mg PO DAILY PRN Allergy Symptoms 04/21/22 09/19/25 History meclizine 25 mg tablet 25 mg PO BID PRN dizziness # 20 tabs 04/22/22 09/19/25 Rx anastrozole 1 mg tablet 1 mg PO DAILY 09/19/2509/19 History Allergies Allergy/AdvReac Type Severity Reaction Status Date / Time erythromycin base Allergy Mild Nausea Verified 10/02/25 09:18 imipramine Allergy Mild Nausea Verified 10/02/25 09:18 Penicillins Allergy Mild Unknown Verified 10/02/25 09:18 pneumococcal vaccine Allergy Mild Nausea and Verified 10/02/25 09:18 (Pneumovax 23) Vomiting Vital Signs Vital Signs - 24 hr 10/02/25 09:21 Temperature 97.4 F L Pulse Rate 93 Respiratory Rate 18 Blood Pressure 184/88 H Pulse Oximetry 97 Oxygen Delivery Room Air Exam Const: General: cooperative and healthy appearing Resp: Effort & Inspection: normal respiratory effort and able to speak in complete sentences Auscultation: clear to auscultation bilaterally Cardio: Rate: regular rate Rhythm: regular rhythm GI: Inspection: normal to inspection GI Palp: No No hepatosplenomegaly pr esent Auscultation: normal bowel sounds Rectal Exam: deferred Skin: General skin exam: normal color Psych: Appearance: grossly normal Mental Status: mental status grossly normal Assessment and Plan Assessment and plan (1) Positive colorectal cancer screening using Cologuard test: Code(s): R19.5 - Other fecal abnormalities Status: Acute Assessment and Plan: The patient is deemed a good candidate for the procedure. Consent signed. Will proceed.
[2025-10-02 10:42] VITALS: BP 107/53; PULSE 88; RESP 16; O2SAT 98
[2025-10-02 10:52] VITALS: BP 118/54; PULSE 80; RESP 19; O2SAT 96
[2025-10-02 11:02] VITALS: BP 133/60; PULSE 76; RESP 20; O2SAT 99
== END 2025-10-02 11:20 | disposition home or self-care (01) ==
PROVIDERS: PCP Physician Assistant; Referring Provider Internal Medicine Gastroenterology; Visit Provider Internal Medicine Gastroenterology
PROC: 0DJD8ZZ Inspection of Lower Intestinal Tract, Via Natural or Artificial Opening Endoscopic (ICD-10-PCS; CPT 45378; principal; 2025-10-02 10:30)
DX: Z12.11 Encounter for screening for malignant neoplasm of colon (principal); R19.5 Other fecal abnormalities; K57.30 Diverticulosis of large intestine without perforation or abscess without bleeding; K64.8 Other hemorrhoids; Z86.0100 Personal history of colon polyps, unspecified; E11.9 Type 2 diabetes mellitus without complications
CPT/HCPCS: G0105; 82948; J2003; J2704; J7120

== ENCOUNTER 2025-11-18 13:23 | Outpatient (CLI) | payer MEDICARE, MEDICAID, SELFPAY ==
--- NOTE | ~2025-11-18 | XR_ITS ---
XR knee LT min 4V 11/18/2025 13:45 Indication: Left knee pain Procedure: 4 views left knee Comparison: No prior studies for comparison. Findings: No fracture, subluxation or dislocation. There is moderate osteoarthritis of the left knee. No significant joint effusion. No foreign bodies. Impression: 1: Moderate tricompartment osteoarthritis. Reviewed, dictated and finalized at location O. H CARRIER Impression: 1: Moderate tricompartment osteoarthritis.
--- OUTSIDE RECORDS SUMMARY | 2025-11-18 13:42 | XMS_ITS | Clinical Summary ---
Author Organization [facility] Address [address] [place] [address] Phone Care Team Providers Care Ex Assistant/Program Director Name Role Phone Evelyne Tamayo PAC Primary Care Provider [phone] Da Espinosa MD Unavailable [phone] Sheryl Carroll MD Unavailable Allergies Active Allergy [...] Encounters Date Type Department Care Team Description 10/31/2025 1:30 PM INSTRUMENT ENGINEER Office Visit [facility] [address] [phone] Lia Loredo, CUP MACHINE OPERATOR, PHOTOGRAPHY COLORIST Malignant neoplasm of lower-outer quadrant of left breast of female, estrogen receptor positive (Primary Dx); Use of aromatase inhibitors; Chronic fatigue 10/31/2025 1:15 PM INSTRUMENT ENGINEER Lab [facility] [address] [address] Lab, [facility] Malignant neoplasm of lower-outer quadrant of left breast of female, estrogen receptor positive; Use of aromatase inhibitors; Chronic fatigue; Vitamin D deficiency 10/31/2025 Travel from Last 3 Months Family History [...] Sign Reading Time Taken Comments Blood Pressure 146/80 10/31/2025 1:17 PM INSTRUMENT ENGINEER Pulse 72 10/31/2025 1:17 PM INSTRUMENT ENGINEER Temperature 36.6 C (97.9 F) 10/31/2025 1:17 PM INSTRUMENT ENGINEER Respiratory Rate 18 10/31/2025 1:17 PM INSTRUMENT ENGINEER Oxygen Saturation 94% 10/31/2025 1:17 PM INSTRUMENT ENGINEER Inhaled Oxygen Concentration - - Weight 92.2 kg (203 lb 4.8 oz) 10/31/2025 1:17 P M INSTRUMENT ENGINEER Height 162.6 cm (5' 4) 10/31/2025 1:17 PM INSTRUMENT ENGINEER Body Mass Index 34.9 10/31/2025 1:17 PM INSTRUMENT ENGINEER Plan of Treatment Upcoming Encounters Date Type Department Care Team (Late st Contact Info) Description 01/30/2026 1:15 PM CDT Lab [facility] [address] [phone] Lab, [facility] 01/30/2026 1:30 PM CDT Office Visit [facility] [address] [address] Sheryl Carroll MD [address] [place] [phone] Health Maintenance Due Date Last Done Comments Hepatitis C Virus (HCV) Screening 1945 TdaP Immunization 1945 Pneumococcal Immunization (50+ years) (1 of 2 - PCV) 1966 Zoster Immunization (1 of 2) 1966 SARS-COV-2 Immunization (3 - Pfizer risk series) 03/20/2021 02/20/2021, 01/30/2021 Respiratory Syncytial Virus (RSV) Immunization (Adult) (1 - 1-dose 75+ series) 2022 Medicare Initial AWV G0438 11/21/2022 DEXA Bone Density 08/02/2026 08/02/2024 Influenza Immunization Completed , 09/28/2023, 09/23/2022, Additional history exists Hepatitis B Immunization Aged Out No longer eligible based on patient's age to complete this topic Human Papillomavirus (HPV) Immunization (No Doses Required) Completed Meningococcal Immunization (ACWY) Aged Out No longer eligible based on patient's age to complete this topic Rotavirus Immunization Aged Out No lo nger eligible based on patient's age to complete this topic Procedures Procedure Name Priority Date/Time Associated Diagnosis Comments CBC WITH AUTO DIFF OH Routine 10/31/2025 12:57 PM INSTRUMENT ENGINEER CMP (COMPREHENSIVE METABOLIC PANEL) Routine 10/31/2025 12:57 PM INSTRUMENT ENGINEER Malignant neoplasm of lower-outer quadrant of left breast of female, estrogen receptor positive Use of aromatase inhibitors Chronic fatigue VITAMIN D, 25 HYDROXY TOTAL Routine 10/31/2025 12:57 PM INSTRUMENT ENGINEER Malignant neoplasm of lower-outer quadrant of left breast of female, estrogen receptor positive Use of aromatase inhibitors Chronic fatigue Vitamin D deficiency EARNESTINE BONE DENSITOMETRY AXIAL SKELETON Routine 08/02/2024 1:32 PM CDT Post-menopausal from Last 3 Months or Most Recently Relevant to Health Maintenance Results * VITAMIN D, 25 HYDROXY TOTAL (10/31/2025 12:57 PM INSTRUMENT ENGINEER) 25() Vitamin D, Total 32.0 30.0 - 100.0 ng/mL [facility] [employer] [facility] Comment: The Clinical Guidelines Subcommittee of the Endocrine Society Task Force established the guidelines below for recommended serum 25(OH) vitamin D levels. Other clinical reference citations may show different values. Deficient <20 Insufficient 20 to <30 Sufficient 30 to 100 Upper Safety Limit >100 Blood 10/31/2025 12:5 7 PM INSTRUMENT ENGINEER Narrative [facility] - 11/01/2025 2:53 PM INSTRUMENT ENGINEER Release to patient->Immediate us Lia oLredo APRN, PHOTOGRAPHY COLORIST CHEMISTRY ORDERABLES Final Result [facility] [employer] [facility] [place] [address], * (ABNORMAL) CBC WITH AUTO DIFF OH (10/31/2025 12:57 PM INSTRUMENT ENGINEER) WBC 11.6(H) 4.0 - 10.0 10*3/uL [facility] [employer] [facility] HGB 13.0 11.2 - 15.7 g/dL [facility] [employer] [facility] HCT 41.1 34.1 - 44.9 % [facility] [employer] [facility] PLT 216 163 - 369 10*3/uL [facility] [employer] [facility] MPV 11.9 9.4 - 12.4 fL [facility] [employer] [facility] RBC 4.56 3.93 - 5.22 10*6/uL [facility] [employer] [facility] MCV 90 79 - 95 fL [facility] [employer] [facility] MCH 28.5 25.6 - 32.2 pg [facility] [employer] [facility] MCHC 31.6(L) 32.2 - 36.5 g/dL [facility] [employer] [facility] RDW 13.3 11.6 - 14.4 % [facility] [employer] [facility] Neutrophils % 71.1(H) 36.0 - 66.0 % [facility] [employer] [facility] Lymphocytes % 21.4 19.0 - 40.0 % [facility] [employer] [facility] Monocytes % 6.3 4.1 - 12.1 % [facility] [employer] [facility] Eosinophils % 0.3 0.0 - 3.5 % [facility] [employer] [facility] Basophils % 0.5 0.0 - 1.0 % [facility] Absolute Neutrophils 8.3(H) 1.4 - 6.6 10*3/uL [facility] Absolute Lymphocytes 2.5 0.8 - 4.0 10*3/uL [facility] [employer] [facility] Absolute Monocytes 0.7 0.2 - 1.2 10*3/uL [facility] [employer] [facility] Absolute Eosinophils 0.0 0.0 - 0.4 10*3/uL [facility] Absolute Basophils 0.1 0.0 - 0.1 10*3/uL [facility] 10/31/2025 12:5 7 PM INSTRUMENT ENGINEER us Lia Loredo CUP MACHINE OPERATOR, PHOTOGRAPHY COLORIST LAB SEND OUTS Final Result [facility] [employer] [facility] [place] [address], * (ABNORMAL) CMP (COMPREHENSIVE METABOLIC PANEL) (10/31/2025 12:57 PM INSTRUMENT ENGINEER) Glucose 172(H) 70 - 105 mg/dL [facility] [employer] [facility] Blood Urea Nitrogen 22 7 - 25 mg/dL [facility] Creatinine 0.7 0.6 - 1.2 mg/dL [facility] Sodium 136 136 - 145 mEq/L [facility] Potassium 4.6 3.5 - 5.1 mEq/L [facility] Chloride 102 98 - 107 mEq/L [facility] Bicarbonate 25 21 - 31 mEq/L [facility] Total Bilirubin 0.3 0.3 - 1.0 mg/dL [facility] Alk. Phosphatase 109(H) 34 - 104 U/L [facility] Aspartate Aminotransferase 16 13 - 39 U/L [facility] Alanine Aminotransferase 17 7 - 52 U/L [facility] Total Protein 7.0 6.4 - 8.9 g/dL [facility] Albumin 3.9 3.5 - 5.7 g/dL [facility] Calcium 9.9 8.6 - 10.3 mg/dL [facility] Anion Gap 13.6 7.0 - 15.0 mEq/L [facility] Globulin 3.1 2.0 - 3.5 g/dL [facility] EGFR 88 >60 ml/min/1. 73m2 [facility] [employer] Comment: This eGFR is calculated using 2020 CKD-EPI Creatinine equation without race modifier based on the NKF-ASN task force recommendations Equation: uQWD=093*min(SCr/k,1)a*max(SCr/k,1)-1.200*0.9938Age*1.012 (if female), where SCr is serum creatinine, k is 0.7 for females and 0.9 for males, and a is -0.241 for females and -0.302 for males Blood 10/31/2025 12:5 7 PM INSTRUMENT ENGINEER Narrative [facility] - 10/31/2025 1:51 PM INSTRUMENT ENGINEER Release to patient->Immediate IS THE PATIENT REQUIRED TO BE FASTING FOR 8 HOURS?->No us Lia Loredo CUP MACHINE OPERATOR, PHOTOGRAPHY COLORIST CHEMISTRY ORDERABLES Final Result [facility] [employer] [facility] [place] [address], * EARNESTINE BONE DENSITOMETRY AXIAL SKELETON (08/02/2024 1:32 PM CDT) Anatomical Region Laterality Modality BODY N/A Other Narrative 08/02/2024 3:25 PM CDT EXAMINATION: [facility] BONE DENSITOMETRY AXIAL SKELETON 08/02/2024 INDICATIONS: Asymptomatic [...] Note Bárbara Yoon MD - 08/02/2024 EXAMINATION: [facility] BONE DENSITOMETRY AXIAL SKELETON 08/02/2024 INDICATIONS: Asymptomatic [...] Health Maintenance Insurance MEDICARE C AETNA MEDICAID [place] Care Teams Ex Assistant/Program Director Relationship Specialty Start Date End Date Evelyne Tamayo, PAC [address] [facility] [address] [place] [address] PCP - General Physician Route Process Administrator 07/16/24 Da Espinosa MD [address] [place] [address] [address] [place], [place] [phone] General Surgery 07/16/24 Sheryl Carroll MD [address] [place], [place] [phone] Consulting Physician Oncology 07/16/24
--- OUTSIDE RECORDS SUMMARY | 2025-11-18 13:42 | XMS_ITS | Clinical Summary ---
Author Organization [facility] Address [address] [place] [address] Care Team Providers Care Patcher Helper Name Role Phone Evelyne Tamayo Primary Care Provider [phone] Edi Solis MD Unavailable Allergies Active Allergy Reactions Criticality Noted Date Comments Penicillins Rash Medium 09/28/2017 Medications lisinopril (PRINIVIL) 2.5 MG tablet Take 1 tablet (2.5 mg total) by mouth nightly. 4 Active aspirin EC (ECOTRIN) 81 MG tablet Take 1 tablet (81 mg total) by mouth daily. Active atorvastatin (LIPITOR) 20 MG tablet Take 1 tablet (20 mg total) by mouth nightly at bedtime. 4 Active metoprolol tartrate (LOPRESSOR) 50 MG tablet Take 1 tablet (50 mg total) by mouth 2 (two) times daily. 4 Active metFORMIN ER (GLUCOPHAGE-XR) 500 MG 24 hr tablet Take 1 tablet (500 mg total) by mouth nightly at bedtime. 4 Active omeprazole (PRILOSEC) 20 MG capsule Take 1 capsule (20 mg total) by mouth daily. 4 Active Vitamin D3 125 mcg Tab Take 1 tablet (5,000 Units total) by mouth daily. 4 Active meclizine (ANTIVERT) 25 MG tablet Take 1 tablet (25 mg total) by mouth 3 (three) times daily as needed. Active triamcinolone (KENALOG) 0.025 % cream Apply topically 2 (two) times daily. 4 Active HYDROcodone-cristina taminophen (NORCO) 5-325 MG tabletIndicatio ns:Acute Pain < 7 Day Supply Take 1 tablet by mouth every 4 (four) hours as needed. Indications: Acute Pain < 7 Day Supply 15 tablet 4 Active Active Problems Problem Noted Date Diagnosed Date Breast cancer 08/14/2024 Family History Medical History Relation Comments Cancer Father CHF Mother Relation Status Comments Father Mother Social History Tobacco Use Types Packs/Day Years Used Date Smoking Tobacco: Never Passive Smoke Exposure: Past Smokeless Tobacco: Never Tobacco Cessation:Counseling Given: Not Answered Alcohol Use Standard Drinks/Week Comments Not Currently 0 (1 standard drink = 0.6 oz pur e alcohol) B1300 Health Literacy Answer Date Recor ded How often do you need to hav e someone help you when you read instructions, pamphlets, or other written material from your doctor or pharmacy? Rarely 08/14/2024 [facility] Utilities Answer Date Recorded In the past 12 months has [facility] [employer], gas, oil, or water [employer] threatened to shut off services in your home? No 08/14/2024 Humiliation, Afraid, Rape, and Kick questionnair e Answer Date Recorded Within the last year, have y ou been afraid of your partner or ex-partner? No 08/14/2024 Within the last year, have y ou been humiliated or emotionally abused in other ways by your partner or ex-partner? No Within the last year, have y ou been kicked, hit, slapped, or otherwise physically hurt by your partner or ex-partner? No 08/14/2024 Within the last year, have y ou been raped or forced to have any kind of sexual activity by your partner or ex-partner? No 08/14/2024 Overall Financial Resource Strain (CARDIA) Answe r Date Recorded How hard is it for you to pa y for the very basics like food, housing, medical care, and heating? Not hard at all 08/14/2024 [facility] Occupat ional [facility] - Occupational Stress Questionnaire Answer Date Recorded Do you feel stress - tense, restless, nervous, or anxious, or unable to sleep at night because your mind is troubled all the time - these days? Not at all 08/14/2024 Exercise Vital Sign Answer Date Recorde d On average, how many days pe r week do you engage in moderate to strenuous exercise (like a brisk walk)? 0 days 08/14/2024 On average, how many minutes do you engage in exercise at this level? 0 min 08/14/2024 Hunger Vital Sign Answer Date Recorded Within the past 12 months, y ou worried that your food would run out before you got the money to buy more. Never true 08/14/20 24 Within the past 12 months, t he food you bought just didn't last and you didn't have money to get more. Never true 08/14/2024 PRAPARE - Transportation Answer Date Re corded In the past 12 months, has l ack of transportation kept you from medical appointments or from getting medications? No 07/23 In the past 12 months, has l ack of transportation kept you from meetings, work, or from getting things needed for daily living? No 08/14/2024 Housing Stability Vital Sign Answer Rafiq e Recorded In the last 12 months, was t here a time when you were not able to pay the mortgage or rent on time? No 08/14/2024 In the past 12 months, how m any times have you moved where you were living? 1 08/14/2024 At any time in the past 12 m [facility], were you homeless or living in a half-way (including now)? No 08/14/2024 Comments No Sex and Gender Information Value Date Recorded Sex Assigned at Not on file Legal Sex Female 11:07 AM CDT Gender Identity Not on file Sexual Orientation Not on file Last Filed Vital Signs Vital Sign Reading Time Taken Comments Blood Pressure 121/63 08/15/2024 12:00 AM CDT Pulse 63 08/15/2024 12:00 AM CDT Temperature 36.3 C (97.3 F) 08/15/2024 12:00 AM CDT Respiratory Rate 15 08/15/2024 12:0 0 AM CDT Oxygen Saturation 98% 08/15/2024 12: 00 AM CDT Inhaled Oxygen Concentration - - Weight 82.4 kg (181 lb 10.5 oz) 024 10:10 AM CDT Height 162.6 cm (5' 4) 08/14/2024 10:1 0 AM CDT Body Mass Index 31.18 08/14/2024 10:10 AM CDT Plan of Treatment Health Maintenance Due Date Last Done Comments Hepatitis C 1963 DTaP, Tdap and Td Vaccines ( 1 - Tdap) 1966 Pneumococcal Vaccine: 50+ Years (1 of 1 - PCV) 1997 Zoster Vaccines (1 of 2) 1997 Annual Medicare Wellness Visit 2012 RSV Immunization or 60+ Years (1 - 1-dose 75+ series) 2022 COVID-19 Vaccine (3 - 2024-2 6 season) 2025 02/20/2021, 01/30/2021 Influenza Adult (#1) 2025 11/11/2015 Dexa Scan (General) Completed 08/02/2024, 08/02/2024 Hepatitis A Vaccines Aged Out No long er eligible based on patient's age to complete this topic Meningococcal B Vaccine Aged Out No l onger eligible based on patient's age to complete this topic Meningococcal Vaccine Aged Out No luzmaria alfredo eligible based on patient's age to complete this topic RSV Immunizations Under 20 Months Aged Out No longer eligible b ased on patient's age to complete this topic Insurance AETNA MEDICARE Advance Directives * Full Code (Latest Code Status on File) Date Activated Date Inactivated Comments 08/14/2024 4:06 PM 08/15/2024 12:38 PM Care Teams Patcher Helper Relationship Specialty Start Date End Date Evelyne Tamayo PA [address], [place] [address] PCP - General PHYSICIAN BIOMETRICS CONSULTANT 07/11/24 Edi Solis MD [address] [place] [address] Consulting Physician RADIATION ONCOLOGY 08/06/24
--- OUTSIDE RECORDS SUMMARY | 2025-11-18 13:42 | XMS_ITS | Encounter Summary ---
Author Organization [facility] Address [address] [place] [address] Care Team Providers Care Service Person Name Role Phone Evelyne Tamayo Primary Care Provider [phone] Encounter Details Date Type Department Care Team (Late st Contact Info) Description 11/07/2025 Results Follow-Up 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
--- OUTSIDE RECORDS SUMMARY | 2025-11-18 13:42 | XMS_ITS | Clinical Summary ---
Author Organization [facility] Address [facility] [place] [address] Care Team Providers Care Head Of Housekeeping Name Role Phone Evelyne Tamayo Primary Care Provider [phone] Allergies Active Allergy Reactions Criticality Noted Date [...] mouth daily Active triamcinolone (KENALOG) 0.025 % creamIndicatio ns:Allergic contact dermatitis due to plants, except food Apply topically 2 (two) times a day 30 g 1 06/21/20 22 Active Additional Information Patient not taking.Reported on 10/03/2025 anastrozole (ARIMIDEX) 1 mg tablet Take 1 tablet (1 mg total) by mouth daily Active cholecalcifero l (VITAMIN D-3) 5,000 unit tabletIndicati ons:Vitamin D deficiency Take 1 tablet (5,000 Units total) by mouth daily 02/26/20 25 Active magnesium aspart,citrate ,oxide (Triple Magnesium Complex) 400 mg magnesium capsule Take by mouth Active metFORMIN XR (GLUCOPHAGE XR) 500 mg 24 hr tablet TAKE 1 TABLET BY MOUTH EVERY DAY WITH BREAKFAST 90 tablet 2 05/16/20 25 Active omeprazole (PriLOSEC) 20 mg capsule TAKE 1 CAPSULE BY MOUTH EVERY DAY 90 capsule 2 05/21/20 25 Active lisinopriL (PRINIVIL,ZEST RIL) 2.5 mg tablet TAKE 1 TABLET BY MOUTH EVERY DAY 90 tablet 2 05/21/20 25 Active atorvastatin (LIPITOR) 20 mg tablet TAKE 1 TABLET BY MOUTH EVERY DAY 90 tablet 4 08/26/20 25 Active metoprolol tartrate (LOPRESSOR) 50 mg immediate release tablet TAKE 1 TABLET BY MOUTH TWICE A DAY 180 tablet 2 11/18/20 25 Active metoprolol tartrate (LOPRESSOR) 50 mg immediate release tablet TAKE 1 TABLET BY MOUTH TWICE A DAY 180 tablet 2 02/16/20 25 025 Discontinued Active Problems Problem Noted Date Diagnosed Date Allergy to pneumonia vaccine 09/09/2025 Overview (09/09/2025): Reaction to last pneumonia given in [place]. Told to never take again. Multinodular goiter [...] of left knee 11/27/2024 Assessment & Plan (10/03/2025 4:30 PM FURNACE WORKER): Orders: Ambulatory referral order to Physical Therapy -; Future Assessment & Plan (11/27/2024 1:58 PM FURNACE WORKER): Patient has been experiencing left knee symptoms for the last few months. Notices swelling behind the knee and thinks that that has been getting larger. On November 12 had severe knee pain while she was walking in the dining room. [place] like it was not stable and that [...] She would like to be seen in [place] Enlarged thyroid 08/05/2024 Assessment & Plan (03/03/2025 [...] PM CDT): Follows with Dr. Espinosa at [facility]. Planning a wire localized lumpectomy on 08/07 at [facility] for breast biopsy confirmed invasive ductal [...] provided. Assessment & Plan (11/27/2024 1:27 PM FURNACE WORKER): Discussed the patient's BMI. The BMI is [...] provided. Assessment & Plan (10/18/2023 4:06 PM FURNACE WORKER): Discussed the patient's BMI. The BMI is [...] provided Assessment & Plan (10/16/2022 2:50 PM FURNACE WORKER): Mammogram order provided Allergic contact dermatitis due [...] CPAP. Assessment & Plan (10/18/2023 4:06 PM FURNACE WORKER): Continue per Dr. Yoder. Continue with CPAP. [...] better Assessment & Plan (10/16/2022 2:50 PM FURNACE WORKER): Continue with CPAP. Continue per Dr. Yoder [...] metoprolol Assessment & Plan (10/18/2023 4:06 PM FURNACE WORKER): Bp is stable/in acceptable range for any co-morbidities. Encouraged to limit sodium intake and exercise for weight control. Stressed importance of continued A1c control to minimize the terminal gauger effects of diabetes. Bring accuchecks to office [...] metoprolol Assessment & Plan (10/16/2022 2:49 PM FURNACE WORKER): Bp is stable/in acceptable range for any [...] lisinopril/metoprolol Assessment & Plan (01/24/2022 12:32 PM FURNACE WORKER): Bp is stable/in acceptable range for any co-morbidities. Encouraged to limit sodium intake and exercise for weight control. Continue lisinopril, metoprolol Stressed importance of continued A1c control to minimize the terminal gauger effects of diabetes. Bring accuchecks to office [...] of continued A1c control to minimize the terminal gauger effects of diabetes. Bring accuchecks to office [...] of continued A1c control to minimize the terminal gauger effects of diabetes. Bring accuchecks to office [...] of continued A1c control to minimize the terminal gauger effects of diabetes. Bring accuchecks to office [...] 20 Assessment & Plan (10/18/2023 4:06 PM FURNACE WORKER): Encouraged patient to follow low fat/low chol [...] statin Assessment & Plan (10/16/2022 2:49 PM FURNACE WORKER): Encouraged patient to follow low fat/low chol [...] lipitor Assessment & Plan (01/24/2022 12:28 PM FURNACE WORKER): Encouraged patient to follow fat/low chol diet like the Mediterranean diet. Increase good fats in the diet. Increase exercise. Monitor labs as needed. 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 Assessment & Plan (01/24/2022 12:28 PM FURNACE WORKER): History of stroke. Continue to control hypertension and ASA Gastroesophageal reflux disease without esophagi tis 01/04/2022 Assessment & Plan (03/03/2025 11:40 PM CDT): Continue with omeprazole p.r.n. Assessment & Plan (10/18/2023 4:06 PM FURNACE WORKER): Continue PPI p.r.n. Assessment & Plan (05/07/2023 10:49 AM CDT): Continue PPI p.r.n. Assessment & Plan (10/16/2022 2:50 PM FURNACE WORKER): Continue PPI p.r.n. Assessment & Plan (02/15/2022 8:50 PM CDT): Continue PPI Assessment & Plan (01/24/2022 12:31 PM FURNACE WORKER): Continue PPI Dry mouth 01/04/2022 Assessment & Plan (01/24/2022 12:31 PM FURNACE WORKER): This is a significant, separately identifiable problem [...] right now. Wants to just use the [id number] meclizine p.r.n.. If her symptoms worsen she is to follow up immediately. She is easily keeping foods and liquids down and feels like the dehydration is completely resolved. Assessment & Plan (01/24/2022 12:30 PM FURNACE WORKER): Patient has known vertigo. She uses meclizine [...] 05/14/2024 Assessment & Plan (10/18/2023 4:07 PM FURNACE WORKER): Encouraged healthy lifestyle, good nutrition and exercise. Encouraged Calcium and Vitamin D and weight bearing exercise for bone health. Reviewed immunizations. Reviewed age appropirate screenings. Medicare Wellness Documentation is completed within the chart Need for vaccination 10/18/2023 024 Assessment & Plan (10/18/2023 4:07 PM FURNACE WORKER): Flu vaccine updated in the office today BMI 33.0-33.9,adult 05/07/2023 07/24/20 24 Assessment & Plan (05/14/2024 11:01 PM CDT): Discussed the patient's BMI. The BMI is above average. BMI management plan is completed. BMI Follow-up includes: nutrition counseling, exercise counseling and education provided. Assessment & Plan (10/18/2023 4:06 PM FURNACE WORKER): Discussed the patient's BMI. The BMI is [...] maintain. Assessment & Plan (11/27/2024 1:27 PM FURNACE WORKER): Discussed the patient's BMI. The BMI is [...] 05/07/2023 Assessment & Plan (10/16/2022 2:50 PM FURNACE WORKER): Encouraged healthy lifestyle, good nutrition and exercise. Encouraged Calcium and Vitamin D and weight bearing exercise for bone health. Reviewed immunizations. Reviewed age appropirate screenings. Medicare Wellness Documentation is completed within the chart Need for immunization against influenza 09/23/2022 05/07/2023 Assessment & Plan (10/16/2022 2:51 PM FURNACE WORKER): Flu vaccine updated in the office today [...] 05/14/2024 Assessment & Plan (10/18/2023 4:06 PM FURNACE WORKER): Probably multifactorial. Check labs and followup to re-evaluate Assessment & Plan (05/07/2023 10:50 AM CDT): Probably multifactorial. Check labs and followup to re-evaluate Assessment & Plan (04/26/2022 1:13 PM CDT): Probably multifactorial. Check labs and followup to re-evaluate Assessment & Plan (01/24/2022 12:31 PM FURNACE WORKER): Probably multifactorial. Check labs and followup to re-evaluate Snoring 01/18/2022 05/18/2022 Assessment & Plan (01/24/2022 12:31 PM FURNACE WORKER): This is a significant, separately identifiable problem that was evaluated and managed on the same day as the wellness exam Patient has history of snoring and dry mouth. Her dentist has recommended a sleep study. Will refer to Dr. Yoder Assessment & Plan (01/18/2022 10:18 AM FURNACE WORKER): The patient presents with a history of snoring, daytime hypersomnia and morning dry mouth. I have recommended proceeding with a nocturnal polysomnogram with a split night protocol if necessary and no MSLT. She will follow-up with me in 3 months. Obesity (BMI 30-39.9) 01/04/20222021 Assessment & Plan (01/04/2022 2:23 PM FURNACE WORKER): Obesity is unchanged. Discussed the patient's BMI. The BMI is above average. BMI management plan is completed. BMI Follow-up includes: nutrition counseling, exercise counseling and education provided. BMI 31.0-31.9,adult 01/04/2022 02/16/20 22 Assessment & Plan (01/04/2022 2:24 PM FURNACE WORKER): Obesity is unchanged. Discussed the patient's BMI. The BMI is above average. BMI management plan is completed. BMI Follow-up includes: nutrition counseling, exercise counseling and education provided. Annual physical exam 01/04/2022 022 Assessment & Plan (01/24/2022 12:27 PM FURNACE WORKER): Encouraged healthy lifestyle, good nutrition and exercise. Encouraged Calcium and Vitamin D and weight bearing exercise for bone health. Reviewed immunizations Reviewed age appropirate screenings. Mass of breast 09/13/2017 05/14/2024 Encounters Date Type Department Care Team Description 11/07/2025 Results Follow-Up [facility] [address] [phone] Evelyne Tamayo PA Vitamin D 25 hydroxy, Vitamin B12, TSH, Additional followed-up results: 5 10/29/2025 Orders Only [facility] Medicine [address] [place] [address] [address] [place] [address] Evelyne Tamayo PA Chronic pain of left knee (Primary Dx) 10/03/2025 8:00 AM FURNACE WORKER Office Visit [facility] [address] [place] [phone] Juliann Garsia PA Primary osteoarthritis of left knee (Primary Dx); Chronic pain of left knee; Lipoma of left lower extremity 10/03/2025 Orders Only [address] [place] [phone] ProviderTess MD 09/30/2025 9:10 AM FURNACE WORKER Lab [address] [address] BMI 33.0-33.9,adult; Obesity (BMI 30-39.9); Fatigue, unspecified type; Anemia, unspecified type; Hypertension associated with diabetes (HCC) 09/10/2025 11:30 AM CDT Office Visit [address] [place] [phone] Evelyne Tamayo PA Medicare annual wellness visit, [...] vaccine 08/25/2025 2:00 PM CDT Office Visit [facility] at [address] [phone] Madai Kohli, OPERATING ROOM TECHNOLOGIST Strep throat (Primary Dx); Herpes zoster without complication from Last 3 Months Immunizations Immunization Administration [...] on file Legal Sex Female 11:57 AM FURNACE WORKER Gender Identity Not on file Sexual Orientation Not on file Last Filed Vital Signs Vital Sign Reading Time Taken Comments Blood Pressure 152/80 10/03/2025 7:59 AM FURNACE WORKER Pulse 77 10/03/2025 7:59 AM FURNACE WORKER Temperature 36.7 C (98 F) 09/10/2025 11:32 AM CDT Respiratory Rate 24 08/25/2025 1:48 PM CDT Oxygen Saturation 96% 09/10/2025 11:32 AM CDT Inhaled Oxygen Concentration - - Weight 92.5 kg (204 lb) 10/03/2025 7:59 AM FURNACE WORKER Height 165.1 cm (5' 5) 10/03/2025 7:59 AM FURNACE WORKER Body Mass Index 33.95 10/03/2025 7:59 AM FURNACE WORKER Plan of Treatment Health Maintenance Due Date Last Done Comments Hepatitis C Screening 1945 Foot Exam 1945 Hepatitis B Screening 1965 Zoster Vaccine (1 of 2) 1966 DTaP/Tdap/Td Vaccine (1 - Tdap) 05/10/2009 9 Covid-19 Vaccine (3 - Pfizer risk series) 03/20/2021 02/20/2021, 01/30/2021 Albumin Creatinine Ratio, Urine 01/01/2026 01/01/2025, 05/08/2024, [...] 05/14/2024, Additional history exists eGFR 09/30/2026 09/30/2025, 0211/2024, 05/08/2024, Additional history exists Influenza Vaccine Completed 09/04/2025, , 09/23/2022, Additional history exists Colon Cancer Screening-CT Colonography Discontinued 10/02/2025, 10/01/2020 Colon Cancer Screening-Colonoscopy Discontinued 10/02/2025, 10/01/2020 Colon Cancer Screening-DNA Stool Discontinued 10/02/20, 10/01/2020 Colon Cancer Screening-FIT Discontinued 10/02/2025, Colon Cancer Screening-FOBT Discontinued 10/02/2025, 1 12/01/2019 Colon Cancer Screening-Sigmoidoscopy Discontinued 10/02/2025, 10/01/2020 Colorectal Cancer Screening Discontinued Pneumococcal vaccine 65+ Discontinued Procedures Procedure Name Priority Date/Time Associated Diagnosis Comments HM COLONOSCOPY Routine 10/02/2025 3:45 PM FURNACE WORKER EGFR Routine 09/30/2025 9:15 AM FURNACE WORKER Hypertension associated with diabetes (HCC) COMPREHENSIVE METABOLIC PANEL Routine 09/30/2025 9:15 AM FURNACE WORKER Hypertension associated with diabetes (HCC) HEMOGLOBIN A1C Routine 09/30/2025 9:15 AM FURNACE WORKER Hypertension associated with diabetes (HCC) IRON PROFILE W/ IBC Routine 09/30/2025 9 :15 AM FURNACE WORKER Anemia, unspecified type FERRITIN Routine 09/30/2025 9:15 AM FURNACE WORKER Anemia, unspecified type TSH Routine 09/30/2025 9:15 AM FURNACE WORKER Fatigue, unspecified type VITAMIN B12 Routine 09/30/2025 9:15 AM FURNACE WORKER Fatigue, unspecified type VITAMIN D 25 HYDROXY Routine 09/30/2025 9:15 AM FURNACE WORKER BMI 33.0-33.9,adult Obesity (BMI 30-39.9) POC INFLUENZA A/B, COVID-19 ANTIGEN Routine 08/25/2025 2:19 PM CDT Strep throat POCT RAPID STREP Routine 08/25/2025 1:59 PM CDT Strep throat MAMMOGRAPHY Routine 06/20/2025 5:07 PM CDT DIABETES EYE EXAM Routine 2025 2:43 PM CDT LIPID PANEL Routine 01/01/2025 8:52 AM FURNACE WORKER Hypertension associated with diabetes (HCC) ALBUMIN CREATININE RATIO, URINE Routine 01/01/2025 8:52 AM FURNACE WORKER Hypertension associated with diabetes (HCC) DEXA SCAN Routine 08/14/2021 from Last 3 Months or Most Recently Relevant to Health Maintenance Results * (ABNORMAL) COLONOSCOPY (10/02/2025 3:45 PM FURNACE WORKER) Scribed Colonoscopy Abnormal Impressions Larissa Rodriguez MA - 10/02/2025 3:45 PM FURNACE WORKER Multiple medium diverticula were present in the ascending colon and in the sigmoid colon. A dew small size uncomplicated internal hemorrhoids were seen in the rectum. us Historical Provider HEALTH MAINTENANCE Edited Result - Final * eGFR (09/30/2025 9:15 AM FURNACE WORKER) eGFR 87 >=60 mL/min/1. 73 m2 Comment: [...] last reviewed 2021. Blood 09/30/2025 9:15 AM FURNACE WORKER 09/30/2025 10:40 AM FURNACE WORKER Result [facility] Evelyne COLINDRES LAB BLOOD ORDERABLES Final Result Performing Organization Address City/[facility]/ZIP Co de Phone Number [address] [place] [address] * Iron profile w/ IBC (09/30/2025 9:15 AM FURNACE WORKER) Pathologist [facility] Iron 93 35 - 145 mcg/dL TIBC 357 250 - 400 mcg/dL [facility] Transferrin saturation 26 20 - 50 % [facility] Blood 09/30/2025 9:15 AM FURNACE WORKER 09/30/2025 10:40 AM FURNACE WORKER Result [facility] Evelyne COLINDRES LAB BLOOD ORDERABLES Final Result Performing Organization Address [facility] Co de Phone Number [address] [place] [address] * Vitamin D 25 hydroxy (09/30/2025 9:15 AM FURNACE WORKER) Pathologist [facility] Vitamin D 25-OH 47.0 30.0 - 80.0 ng/mL Blood 09/30/2025 9:15 AM FURNACE WORKER 09/30/2025 10:40 AM FURNACE WORKER Result [facility] Evelyne COLINDRES LAB BLOOD ORDERABLES Final Result Performing Organization Address [facility] Co de Phone Number [address] [place] [address] * TSH (09/30/2025 9:15 AM FURNACE WORKER) Thyroid Stimulating Hormone 0.46 0.30 - 4.20 mcIUnit/mL Blood 09/30/2025 9:15 AM FURNACE WORKER 09/30/2025 10:40 AM FURNACE WORKER Evelyne COLINDRES LAB BLOOD ORDERABLES Final Result Performing Organization Address [facility] de Phone Number [id number] [place] [address] * (ABNORMAL) Hemoglobin A1c (09/30/2025 9:15 AM FURNACE WORKER) Pathologist [facility] Hgb A1C 8.0(H) 4.0 - 5.6 % Estimated Average Glucose 183 mg/dL MANNIE Comment: The ADA recommends reporting an estimated Average Glucose (eAG) with all Hemoglobin A1c results using the equation derived from a study of 507 normal and diabetic adults. Minority populations were underrepresented and children were not included. (Diabetes Care 31:1922-8543, 2008). The eAG is not equivalent to a fasting glucose. Blood 09/30/2025 9:15 AM FURNACE WORKER 09/30/2025 10:40 AM FURNACE WORKER Result [facility] Evelyne COLINDRES LAB BLOOD ORDERABLES Final Result Performing Organization Address [facility] de Phone Number [address] [place] [address] * Ferritin (09/30/2025 9:15 AM FURNACE WORKER) Pathologist [facility] Ferritin 32 13 - 150 ng/mL Blood 09/30/2025 9:15 AM FURNACE WORKER 09/30/2025 10:40 AM FURNACE WORKER Evelyne COLINDRES LAB BLOOD ORDERABLES Final Result Performing Organization Address City/[facility] Co de Phone Number HEATHER[address] [place] [address] * Vitamin B12 (09/30/2025 9:15 AM FURNACE WORKER) Pathologist [facility] Vitamin B12 537 230 - 1,250 pg/mL Blood 09/30/2025 9:15 AM FURNACE WORKER 09/30/2025 10:40 AM FURNACE WORKER Evelyne COLINDRES LAB BLOOD ORDERABLES Final Result [facility] [address] [facility] Department [place] [address] * (ABNORMAL) Comprehensive metabolic panel (09/30/2025 9:15 AM FURNACE WORKER) Pathologist [facility] Sodium 142 135 - 145 mmol/L Potassium, pl 4.6 3.3 - 4.9 mmol/L [facility] Chloride 103 97 - 110 mmol/L [facility] CO2 28 22 - 32 mmol/L [facility] Anion gap 11 2 - 15 mmol/L [facility] BUN 19 6 - 25 mg/dL [facility] Creatinine 0.71 0.60 - 1.10 mg/dL [facility] Glucose 158 70 - 199 mg/dL [facility] Comment: Interpretive Data Fasting glucose >/= 126 [...] 2022. Calcium 10.6(H) 8.5 - 10.3 mg/dL [facility] Bilirubin, total 0.4 0.1 - 1.2 mg/dL [facility] Protein, pl 7.6 6.5 - 8.5 g/dL [facility] Albumin 4.0 3.5 - 5.0 g/dL [facility] Alk phos 125 40 - 130 Units/L [facility] ALT 22 7 - 45 Units/L [facility] AST 25 10 - 45 Units/L [facility] Blood 09/30/2025 9:15 AM FURNACE WORKER 09/30/2025 10:40 AM FURNACE WORKER Result [facility] Evelyne COLINDRES LAB BLOOD ORDERABLES Final Result Performing Organization Address City/[facility]/ZIP Co de Phone Number MANNIE [address] [facility] Department [place] [address] * POC Influenza A/B, COVID-19 antigen (08/25/2025 2:19 PM CDT) Influenza A Ag, POC Negative Negative [facility] Influenza B Ag, POC Negative Negative [facility] COVID-19 Ag POC Presumptive Negative Presumptive Negative, Invalid [facility] Swab 08/25/2025 2:19 PM CDT Madai Kohli NP POINT OF CARE TEST ORDERABLES Final Result Performing Organization Address [facility] Co de Phone Number [facility] [address] * (ABNORMAL) POCT rapid strep A (08/25/2025 1:59 PM CDT) Pathologist [facility] Rapid Strep A, POC Positive(A ) Negative Swab 08/25/2025 1:59 PM CDT Madai Kohli NP POINT OF CARE TEST ORDERABLES Final Result * HM MAMMOGRAPHY (06/20/2025 5:07 PM CDT) Mammography Normal Impressions Larissa Rodriguez MA - 06/20/2025 5:07 PM CDT There is no mammographic evidence of malignancy. A 1 year screening mammogram is recommended. Bi-Rads Category 1: Negative Historical Provider HEALTH MAINTENANCE Edited Result - Final * DIABETES EYE EXAM (2025 2:43 PM CDT) SCRIBED DIABETIC DILATED EYE EXAM Normal Historical Provider HEALTH MAINTENANCE Edited Result - Final * Albumin Creatinine Ratio, Urine (01/01/2025 8:52 AM FURNACE WORKER) Albumin Ur <12.0 mg/L Comment: Interpretive Data No reference range established. Current interpretive data was last revised 2019. Creatinine Ur 45.8 mg/dL MANNIE PACHECO Comment: Interpretive Data No reference range established. Current interpretive data was last revised 2019. Albumin Creatinine Ratio, Ur <26 1 - 29 mg/g MANNIE PACHECO Urine 01/01/2025 8:52 AM FURNACE WORKER 01/01/2025 5:27 PM FURNACE WORKER Evelyne COLINDRES LAB URINE ORDERABLES Final Result MANNIE [address] Department [place] [address] * (ABNORMAL) Lipid panel (01/01/2025 8:52 AM FURNACE WORKER) Cholesterol 230(H) 30 - 199 mg/dL Comment: [...] 7 MANNIE JUNIOR Blood 01/01/2025 8:52 AM FURNACE WORKER 01/01/2025 5:27 PM FURNACE WORKER Evelyne COLINDRES LAB BLOOD ORDERABLES Final Result MANNIE PACHECO [address] Department [place] [address] * DEXA SCAN (08/14/2021) Historical Provider HEALTH MAINTENANCE Final Result from Last 3 Months or Most Recently Relevant to Health Maintenance Insurance [employer] MEDICARE [place] AETNA MEDICARE [facility] IDPA A[employer]NA MEDICARE [employer]OLD IDPA Care Teams Head Of Housekeeping Relationship Specialty Start Date End Date Evelyne Tamayo PA [address] [facility] [address] [place] [address] PCP - General Internal Medicine 12/15/21
== END 2025-11-18 13:24 | disposition home or self-care (01) ==
PROVIDERS: PCP Physician Assistant; Visit Provider Orthopaedic Surgery
DX: M17.12 Unilateral primary osteoarthritis, left knee (principal)
CPT/HCPCS: 73564